=== PATIENT | female | born 1965 | race Caucasian/White ===

== ENCOUNTER 2022-06-21 11:30 | Emergency (ER) | payer MEDICARE, OTHER, SELFPAY ==
[2022-06-21 12:37] VITALS: BP 148/72; PULSE 88; RESP 18; TEMP 37.2; O2SAT 98; BMI 27.4
[2022-06-21 13:21] LABS: Basophils # 0.1 K/mm3 (0-0.2); Basophils % 0.7 % (0.1-2.0); Eosinophils # 0.1 K/mm3 (0.0-0.4); Eosinophils % 1.3 % (0.1-12.0); Hematocrit 38.3 % (37.0-47.0); Hemoglobin 12.3 g/dL (12.2-16.2); Lymphocytes % 25.5 % (10-50); Mean Corpuscular HGB Conc 32.1 g/dL (31.8-35.4); Mean Corpuscular Hemoglobin 31.7 pg (27.0-31.2); Mean Corpuscular Volume 98.7 fl (81-99); Monocytes # 0.4 K/mm3 (0.1-1.0); Monocytes % 5.3 % (1.7-9.3); Neutrophils # 5.3 K/mm3 (1.8-7.8); Neutrophils % 67.2 % (37.0-80.0); Platelet Count 406 K/mm3 (142-424); Red Blood Count 3.88 M/mm3 (4.20-5.40); Red Cell Distribution Width 15.2 % (11.5-17.5); White Blood Count 7.9 K/mm3 (4.8-10.8)
[2022-06-21 13:26] LABS: Alanine Aminotransferase 47 U/L (12-78); Albumin Level 3.2 g/dl (3.5-5.0); Albumin/Globulin Ratio 1.1 (1.1-1.8); Alkaline Phosphatase 288 U/L (38-126); Aspartate Amino Transferase 62 U/L (14-36); Calcium 8.7 mg/dl (8.4-10.2); Carbon Dioxide 34 mmol/L (22.0-30.0); Chloride 92 mmol/L (98-107); Creatinine Clearance Estimated 89 mL/min (50-200); Estimated Glomerular Filt Rate 73 ml/min (>60); GFR (African American) 89 ML/MIN (>60); Glucose 86 mg/dl (74-100); Sodium 136 mmol/L (136-145); Total Protein,Serum 6.2 g/dl (6.3-8.2)
[2022-06-21 13:28] LABS: Bilirubin,Total 0.1 mg/dl (0.2-1.3); Blood Urea Nitrogen < 2 mg/dl (7-17)
--- NOTE | 2022-06-21 13:29 | PC.NURSE ---
8624 CRITICAL LAB RECEIVED FROM [facility] IN LAB. K+ 3.0, PT NAME AND R/V. DR. ASHBY NOTIFIED
--- NOTE | 2022-06-21 13:37 | PC.NURSE ---
ED MD AT BEDSIDE FOR EVALUATION
--- NOTE | 2022-06-21 13:45 | XR_ITS ---
FINAL REPORT TECHNIQUE: Chest PA & Lateral CLINICAL HISTORY: edema FINDINGS: 2 views of the chest were performed. The heart size is normal. The mediastinum is within normal limits. There is scarring in the lung bases. There are no pleural effusions. There is no pneumothorax. There is kyphoplasty and and upper thoracic vertebrae. IMPRESSION: No acute cardiopulmonary process. Reviewed, Interpreted and Dictated by Codey Rodrigez MD Transcribed by Gilbert Almaraz Authenticated and [facility]
--- NOTE | 2022-06-21 13:56 | HMH.EDGENADL ---
Discharge Plan Disposition Patient Disposition: Home, Self-Care Condition: Good Prescriptions Prescriptions: New amoxicillin-pot clavulanate [Augmentin] 500-125 mg tablet 1 tab PO Q8H Qty: 30 0RF hydrochlorothiazide 25 mg tablet 25 mg PO DAILY Qty: 30 0RF potassium chloride 20 mEq tablet extended release 20 meq PO DAILY Qty: 7 0RF No Action celecoxib 200 mg Capsule 200 mg PO DAILY atorvastatin 40 mg Tablet 40 mg PO HS quetiapine 300 mg Tablet 300 mg PO HS amlodipine 5 mg Tablet 5 mg PO DAILY levothyroxine 75 mcg Tablet 75 mcg PO DAILY mirtazapine 15 mg Tablet,Disintegrating 15 mg PO HS metoprolol tartrate 25 mg Tablet 25 mg PO BID temazepam 22.5 mg Capsule 22.5 mg PO HS PRN (Reason: Anxiety) Brilinta 90 mg Tablet 90 mg PO BID Viberzi 100 mg Tablet 100 mg PO BID Rx Instructions: must administer with a meal/food Centrum Adult 50 Fresh-Fruity 120 mcg Tablet,Chewable 1 tab PO DAILY hydralazine 25 mg Tablet 25 mg PO BID divalproex 500 mg Tablet Extended Release 24 Hr 500 mg PO HS Referrals Follow up/Referrals: Mando Olmstead MD [Staff Physician] - See instructions Provider,MD Kip [Primary Care Provider] - See instructions Activity Restrictions/Add. Instructions Additional Instructions/Restrictions: Stop taking amlodipine. Hydrochlorothiazide and potassium as prescribed. Antibiotic, Augmentin, as prescribed. Follow-up with cardiology in the office next week 06/28/2022 at 10:30 AM. You are being provided with a list of physicians available for follow-up of your condition. Please call a physician on this list to arrange a follow-up appointment as soon as possible. Return emergency department if worsening swelling, redness, or if fever develops. Clinical Impressions Clinical Impression: Edema, peripheral, Cellulitis, Acute hypokalemia Instructions Patient Instructions: DI for Cellulitis -- Adult, DI for Hypokalemia, DI for Peripheral Edema -- Bilateral Discharge ED Provider: Aneesh Paulino Adult [facility] General Chief complaint: Wound/Laceration Stated complaint: both ankles, feet, and legs are red, swollen Time Seen by Provider: 06/21/22 13:35 Mode of Arrival: Ambulatory Limitations: No Limitations Description of Symptoms (Recalled from ER Triage Doc. by RN): PT REPORTS SWELLING AND REDNESS TO BILATERAL LOWER LEGS, LEFT MORE THAN RIGHT History of Present Illness HPI narrative: 1 week history of bilateral leg swelling. States that also legs began to turn red today. No fever. No pain. She just recently moved here from [place] on Sunday. The swelling started before she made the trip. She says she has had swelling like this in the past, she does not know what the cause was. However, she does not have swelling on a daily basis. She is not on any diuretics and says she does not have a history of congestive heart failure. She was recently started on amlodipine, the end of May, when she was hospitalized for influenza and pneumonia. Related Data Home Medications Medication Instructions Recorded Confirmed amlodipine 5 mg tablet 5 mg PO DAILY Hypertension 06/21/22 06/21/22 atorvastatin 40 mg tablet 40 mg PO HS Cholesterol 06/21/22 06/21/22 celecoxib 200 mg capsule 200 mg PO DAILY mood 06/21/22 06/21/22 divalproex 500 mg tablet,extended 500 mg PO HS seizures 06/21/22 06/21/22 release 24 hr eluxadoline 100 mg tablet (Viberzi) 100 mg PO BID IBS 06/21/22 06/21/22 hydralazine 25 mg tablet 25 mg PO BID Anxiety 06/21/22 06/21/22 levothyroxine 75 mcg tablet 75 mcg PO DAILY thyroid 06/21/22 06/21/22 metoprolol tartrate 25 mg tablet 25 mg PO BID blood pressure 06/21/22 06/21/22 mirtazapine 15 mg disintegrating 15 mg PO HS antidepressant 06/21/22 06/21/22 tablet multivitamin with minerals-folic 1 tab PO DAILY Supplement 06/21/22 06/21/22 acid 120 mcg chewa
--- NOTE | 2022-06-21 14:02 | PC.NURSE ---
PT TO XR AT THIS TIME
[2022-06-21 14:09] LABS: NT Pro Brain Natriuretic Pep. 554 pg/mL (0-125)
--- NOTE | 2022-06-21 14:13 | PC.NURSE ---
PT RETURNED FROM XR
--- NOTE | 2022-06-21 14:18 | ECG_ITS ---
APPROVED REPORT Exam: Resting ECG HR:76 bpm ECG Measurements Heart Rate 76 AXES OH 125 P 62 QRSd 81 QRS 20 QT 387 T 77 QTc 418 Conclusion SINUS RHYTHM NONSPECIFIC ST & T-WAVE ABNORMALITY BORDERLINE ECG UNCONFIRMED REPORT Electronically signed by : Enoch Alonzo MD 06/22/2022 21:17:22
--- NOTE | 2022-06-21 15:01 | PC.NURSE ---
PT MEDICATED PER EMAR, GIVEN PB AND CRACKERS WITH ABX
[2022-06-21 15:18] VITALS: BP 135/91; PULSE 80; RESP 18; TEMP 36.7; O2SAT 97
== END 2022-06-21 15:22 | disposition home or self-care (01) ==
PROVIDERS: Emergency Provider Emergency Medicine
DX: L03.115 Cellulitis of right lower limb (principal); L03.116 Cellulitis of left lower limb; E87.6 Hypokalemia; I10 Essential (primary) hypertension; I25.10 Atherosclerotic heart disease of native coronary artery without angina pectoris; E78.5 Hyperlipidemia, unspecified; E11.9 Type 2 diabetes mellitus without complications; E07.9 Disorder of thyroid, unspecified; F41.9 Anxiety disorder, unspecified; F17.200 Nicotine dependence, unspecified, uncomplicated; Z79.899 Other long term (current) drug therapy; Z85.828 Personal history of other malignant neoplasm of skin; Z96.41 Presence of insulin pump (external) (internal)
CPT/HCPCS: 71046; 80053; 83880; 85025; 93005; 99284

== ENCOUNTER 2022-06-22 21:35 | Emergency (ER) | payer MEDICARE, OTHER, SELFPAY ==
[2022-06-22 21:38] VITALS: BP 176/69; PULSE 96; RESP 20; TEMP 37; O2SAT 99; BMI 27.4
[2022-06-22 22:01] VITALS: BP 157/72; PULSE 99; O2SAT 98
--- NOTE | 2022-06-22 22:15 | PC.NURSE ---
Dr. Mendoza at
--- NOTE | 2022-06-22 22:19 | HMH.EDNVD ---
Discharge Plan Disposition Patient Disposition: Home, Self-Care Chief Complaint: Nausea/Vomiting/Diarrhea Prescriptions Prescriptions: No Action celecoxib 200 mg Capsule 200 mg PO DAILY atorvastatin 40 mg Tablet 40 mg PO HS quetiapine 300 mg Tablet 300 mg PO HS levothyroxine 75 mcg Tablet 75 mcg PO DAILY mirtazapine 15 mg Tablet,Disintegrating 15 mg PO HS metoprolol tartrate 25 mg Tablet 25 mg PO BID temazepam 22.5 mg Capsule 22.5 mg PO HS PRN (Reason: Anxiety) Brilinta 90 mg Tablet 90 mg PO BID Viberzi 100 mg Tablet 100 mg PO BID Rx Instructions: must administer with a meal/food Centrum Adult 50 Fresh-Fruity 120 mcg Tablet,Chewable 1 tab PO DAILY hydralazine 25 mg Tablet 25 mg PO BID divalproex 500 mg Tablet Extended Release 24 Hr 500 mg PO HS hydrochlorothiazide 25 mg tablet 25 mg PO DAILY amoxicillin-pot clavulanate [Augmentin] 500-125 mg tablet 1 tab PO Q8H potassium chloride 20 mEq tablet extended release 20 meq PO DAILY Referrals Follow up/Referrals: Provider,Referral, MD [Primary Care Provider] - See instructions Clinical Impressions Clinical Impression: Cellulitis, Drug-induced nausea and vomiting Instructions Patient Instructions: DI for Nausea -- Adult Discharge ED Provider: Abhinav Mendoza Nausea/Vomiting/Diarrhea HPI General Chief complaint: Nausea/Vomiting/Diarrhea Stated complaint: vomiting, redness on both legs, dA Time Seen by Provider: 06/22/22 22:19 Mode of Arrival: Family Vehicle Source of Information: Patient Limitations: No Limitations Description of Symptoms (Recalled from ER Triage Doc. by RN): Pt c/o nausea & vomiting and increased diarrhea since starting her Augmentin. Pt was seen in ER yesterday (06/21) and dx with BLE Cellulitis. Pt's family member states her legs look a lot better than yesterday . Pt reports I don't see a change . 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 She also reports her BP medicine was changed to HCTZ and she has had 1 dose thus far but pt states I don't think it's helped my swelling at all. History of Present Illness HPI Narrative: recent ed visit with cellulitis lower ext and has iddm and leg edema - pending appt with card but unable to mojgan po abx sec to nausea and diarrhea - MD complaint: nausea and vomiting Onset (ago): day(s) Severity: moderate Associated symptoms: denies other symptoms Related Data Home Medications Medication Instructions Recorded Confirmed atorvastatin 40 mg tablet 40 mg PO HS Cholesterol 06/21/22 06/22/22 celecoxib 200 mg capsule 200 mg PO DAILY mood 06/21/22 06/22/22 divalproex 500 mg tablet,extended 500 mg PO HS seizures 06/21/22 06/22/22 release 24 hr eluxadoline 100 mg tablet (Viberzi) 100 mg PO BID IBS 06/21/22 06/22/22 hydralazine 25 mg tablet 25 mg PO BID Anxiety 06/21/22 06/22/22 levothyroxine 75 mcg tablet 75 mcg PO DAILY thyroid 06/21/22 06/22/22 metoprolol tartrate 25 mg tablet 25 mg PO BID blood pressure 06/21/22 06/22/22 mirtazapine 15 mg disintegrating 15 mg PO HS antidepressant 06/21/22 06/22/22 tablet multivitamin with minerals-folic 1 tab PO DAILY Supplement 06/21/22 06/22/22 acid 120 mcg chewable tablet (Centrum Adult 50 Plus Fresh-Fruity) quetiapine 300 mg tablet 300 mg PO HS sleep 06/21/22 06/22/22 temazepam 22.5 mg capsule 22.5 mg PO HS PRN Anxiety 06/21/22 06/22/22 ticagrelor 90 mg tablet (Brilinta) 90 mg PO BID Blood thinner 06/21/22 06/22/22 amoxicillin 500 mg-potassium 1 tab PO Q8H cellulitis 06/22/22 06/22/22 clavulanate 125 mg tablet (Augmentin) hydrochlorothiazide 25 mg tablet 25 mg PO DAILY high blood 06/22/22 06/22/22 pressure, fluid potassium chloride 20 mEq 20 meq PO DAILY Supplement 06/22/22 06/22/22 tablet,extended release Allergies Allergy/AdvReac Type Severity Reaction Status Date / Time clindamycin Allergy Verified 06/21
[2022-06-22 22:43] VITALS: BP 152/82; PULSE 85; RESP 20; TEMP 36.8; O2SAT 98
--- NOTE | 2022-06-23 11:17 | PC.NURSE ---
prescription called into [facility] pharmacy per verbal order from dr. davis keflex 500 mg PO TID x7 days no refills. called pt to notify her of prescriptions sent to [facility] pharmacy and dr. davis stated to have pt make sure follow up with new primary doctor (dr. bar).
== END 2022-06-22 22:45 | disposition home or self-care (01) ==
PROVIDERS: Emergency Provider Emergency Medicine
DX: R11.2 Nausea with vomiting, unspecified (principal); R19.7 Diarrhea, unspecified; T36.1X5A Adverse effect of cephalosporins and other beta-lactam antibiotics, initial encounter; L03.116 Cellulitis of left lower limb; L03.115 Cellulitis of right lower limb; E11.69 Type 2 diabetes mellitus with other specified complication; Z79.899 Other long term (current) drug therapy; I10 Essential (primary) hypertension; E78.5 Hyperlipidemia, unspecified; Z72.0 Tobacco use
CPT/HCPCS: 99283

== ENCOUNTER → 2022-07-05 13:28 | Outpatient (CLI) | payer MEDICARE, OTHER, SELFPAY ==
--- NOTE | 2022-07-05 13:32 | CA_ITS ---
APPROVED REPORT EXAM: Comprehensive 2D, Doppler, and color-flow Echocardiogram Wall Washer: ROLY Millard, RVS Ht: 5 ft 5 in Wt: 162lbs BSA: 1.81 BP: 128/54 mmHg Indications: CAD(3 CORONARY STENTS) TYPE I DM, SMOKER, SOA, HTN, EDEMA 2D Dimensions IVSd 0.78 cm F: 0.6-1.0 LVEF (Visual) 67.50 % PWd 0.80 cm F: 0.6 - 1.0 LVDd 3.73 cm F: 3.9 - 5.3 LVDs 2.36 cm F: 2.2 - 3.5 Aortic Root 2.58 cm F: 2.7 - 3.3 Left Atrium 2.37 cm F: 2.7 - 3.8 LVOT 1.74 cm (M/F) 1.5-2.5 M-Mode Dimensions RVDd 2.25 cm (0.9-2.6) LA Diam 2.87 cm (1.9-4.0) LVDd 3.44 cm (3.5-5.7) Ao Diam 2.76 cm (2.0-3.7) LVDs 2.19 cm (3.5-5.7) IVSd 0.81 cm (0.6-1.1) PWd 0.72 cm (0.6-1.1) EF (Teich) 67.20% EPSs 0.57 cm FS 36.30% EDV (Teich) 48.80 mL TAPSE 2.66 (<1.7) ESV (Teich) 16.00 mL LV Diastology E Decel Time 147.00 (160-240 msec) E/A Ratio 0.91 MED E' 5.80 (< 7 cm/sec) MED A' 8.40 cm/s E'/MED E' Ratio 17.71 (>14) LAT E' 10.90 (<10 cm/sec) LAT A' 12.80 cm/s E/LAT E' Ratio 9.42 (>14) Aortic Valve LVOT Max 111.00 (70-110 cm/s) LVOT VTI 25.68 cm AoV Peak Quan. 185.00 (50-130 cm/s) AO Peak GR. 13.70 mmHg AO Mean GR. 7.10 (<5 mmHg) AO VTI 36.65 (18-25 cm) LETA (VTI) 1.67 (2.5-4.5 cm2) Mitral Valve MV A Velocity 113.00 (40-130 cm/s) E/A Ratio 0.91 MV Decel. Time 147.00 (160-240 ms) MV PHT 43.00 ms Pulmonary Valve PV Peak Velocity 77.00 (50-150 cm/s) Tricuspid Valve TR P. Velocity 259.00 cm/s RAP Estimate 10.00 mmHg RVSP 36.80 mmHg Left Ventricle Left atrium is mildly enlarged, left ventricle is normal size, mild concentric left ventricular hypertrophy, estimated ejection fraction 55% with no regional wall motion abnormality, grade 1 diastolic dysfunction seen without tissue Doppler evidence of raise left atrial pressure. Right Ventricle Right atrium and right ventricle are normal size and contractility. Aortic Valve Aortic valve is minimally thickened and fibrosed there is no aortic stenosis aortic insufficiency. Mitral Valve Mitral valve is grossly normal, there is trace mitral regurgitation. Tricuspid Valve Tricuspid valve grossly normal, there is trace tricuspid regurgitation, tricuspid regurgitation jet velocity is inadequate for calculation of the right ventricular systolic pressure. Pulmonic Valve Pulmonic valve is poorly visualized. Great Vessels Aortic root is normal size. Inferior vena cava is normal size with normal inspiratory collapse. Pericardium No significant pericardial effusion noted. Conclusion 1. Normal left ventricular size mild concentric left ventricular hypertrophy, estimated ejection fraction 55% with no regional wall motion abnormality, grade 1 diastolic dysfunction seen without tissue Doppler evidence of raise left atrial pressure. 2. Trace mitral and tricuspid regurgitation. 3. No significant pericardial effusion noted. 4. Inferior vena cava is normal size with normal inspiratory collapse. Electronically signed by : Huang Ellis MD 07/07/2022 11:29:22
== END ==
PROVIDERS: PCP Internal Medicine Adolescent Medicine; Visit Provider Nurse Practitioner Family
DX: E13.69 Other specified diabetes mellitus with other specified complication (principal); F17.200 Nicotine dependence, unspecified, uncomplicated; I25.10 Atherosclerotic heart disease of native coronary artery without angina pectoris; R42 Dizziness and giddiness; R60.9 Edema, unspecified
CPT/HCPCS: 93306

== ENCOUNTER → 2022-07-19 14:40 | Outpatient (CLI) | payer MEDICARE, MEDICAID, SELFPAY ==
[2022-07-19 15:55] LABS: Anion Gap 6.2 mEq/L (5-15); Blood Urea Nitrogen 4 mg/dl (7-17); Calcium 8.9 mg/dl (8.4-10.2); Carbon Dioxide 34 mmol/L (22.0-30.0); Chloride 99 mmol/L (98-107); Estimated Glomerular Filt Rate 86 ml/min (>60); GFR (African American) 104 ML/MIN (>60); Glucose 246 mg/dl (74-100); Potassium 4.2 mmoL/L (3.5-5.1); Sodium 135 mmol/L (136-145)
== END ==
PROVIDERS: PCP Internal Medicine Adolescent Medicine; Visit Provider Physician Assistant
DX: E13.69 Other specified diabetes mellitus with other specified complication (principal); E78.2 Mixed hyperlipidemia; F17.200 Nicotine dependence, unspecified, uncomplicated; I10 Essential (primary) hypertension; I25.10 Atherosclerotic heart disease of native coronary artery without angina pectoris
CPT/HCPCS: 36415; 80048

== ENCOUNTER → 2022-08-17 07:56 | Outpatient (CLI) | payer MEDICARE, MEDICAID, SELFPAY ==
--- NOTE | 2022-08-17 08:02 | XR_ITS ---
FINAL REPORT TECHNIQUE: Bone densitometry calculations of the lumbar spine and left hip were obtained. CLINICAL HISTORY: post menopausal FINDINGS: DEXA BONE DENSITY AXIAL SKELETON Using L1-4, the bone mineral density of the spine is 0.882 g/cm2, corresponding to T-score of -1.5. Using the left hip, the bone mineral density of the femoral neck is 0.521 g/cm2, corresponding to a T-score of -3.0. NOTE: T-score: Standard deviation compared with peak bone mass of young adult mean. *Following the recommendations of the International Society of Bone Densitometry, classification of hip BMD is based on the lower of two T-scores; total hip or femoral neck. IMPRESSION: Osteoporosis: Lowest T-score is at or below -2.5. This patient's T-score meets the World Health Organization criteria for osteoporosis. FRAX not reported because: Some T-score for Spine Total or hip Total or femoral neck at or below -2.5 Reviewed, Interpreted and Dictated by Mg Perez III, MD Transcribed by Samanta Zaldivar Authenticated and [facility]
--- NOTE | 2022-08-17 08:02 | MM_ITS ---
PROCEDURE INFORMATION: Exam: MG Bilateral Screening 3D Mammography Exam date and time: 08/17/2022 7:57 AM Age: 57 years old Clinical indication: Screening. No family history of breast cancer. TECHNIQUE: Imaging protocol: Bilateral Screening tomosynthesis and 2D mammography including computer-aided detection (CAD) when performed. COMPARISON: No relevant prior studies available.If prior mammograms are provided, I am happy to add an addendum. FINDINGS: MAMMOGRAPHY: Breast composition: The breasts are heterogeneously dense, which may obscure small masses. Mass: None. Architectural distortion: None. Calcifications: No suspicious calcifications. Asymmetric density: None. Skin thickening: None. Axillary adenopathy: None. IMPRESSION: No mammographic evidence of malignancy. Annual screening is recommended unless otherwise clinically indicated. ASSESSMENT: BI-RADS Category 1: Negative
== END ==
PROVIDERS: PCP Internal Medicine Adolescent Medicine; Visit Provider Internal Medicine Adolescent Medicine
DX: Z12.31 Encounter for screening mammogram for malignant neoplasm of breast (principal); Z78.0 Asymptomatic menopausal state
CPT/HCPCS: 77063; 77067; 77080

== ENCOUNTER → 2022-11-21 14:40 | Outpatient (POV) | payer MEDICARE, MEDICAID, SELFPAY | PROVIDERS: Visit Provider Dermatology | DX: Z00.00 Encounter for general adult medical examination without abnormal findings (principal) ==

== ENCOUNTER → 2022-12-19 13:25 | Outpatient (POV) | payer MEDICARE, MEDICAID, SELFPAY | PROVIDERS: Visit Provider Dermatology | DX: Z00.00 Encounter for general adult medical examination without abnormal findings (principal) ==

== ENCOUNTER 2022-12-26 12:55 | Emergency (ER) | payer MEDICARE, MEDICAID, SELFPAY ==
[2022-12-26] VITALS (11 sets, daily range): BP systolic 95–130; BP diastolic 42–63; PULSE 69–79; RESP 17–19; TEMP 36.6; O2SAT 90–100; BMI 25.6
--- NOTE | 2022-12-26 13:14 | XR_ITS ---
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 Deformity of proximal Lt tib/fib w pain FINDINGS: Two views of the left tibia-fibula were obtained. There are comminuted oblique fractures of the proximal tibial diaphysis and proximal fibula metaphysis with overlying fracture fragments. The joint spaces appear normal. No soft tissue abnormality is seen. IMPRESSION: Comminuted proximal tibia and fibula fractures. Reviewed, Interpreted and Dictated by Mg Perez III, MD Transcribed by Gilbert Almaraz Authenticated and [facility]
--- NOTE | 2022-12-26 13:14 | CT_ITS ---
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 Coronal reformatted images were also obtained.This study was performed with techniques to keep radiation doses as low as reasonably achievable (ALARA). Individualized dose reduction techniques using automated exposure control or adjustment of mA and/or kV according to the patient's size were employed. There is no evidence of intracranial hemorrhage or mass. The ventricular size is within normal limits. There is no evidence of shift of the midline structures. No abnormal extra axial fluid collection is identified. No skull abnormality is seen on the bone window images. IMPRESSION: No acute intracranial abnormality. Reviewed, Interpreted and Dictated by Mg Perez III, MD Transcribed by Gilbert Almaraz Authenticated and [facility]
--- NOTE | 2022-12-26 13:14 | XR_ITS ---
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 Deformity of proximal Lt tib/fib w pain FINDINGS: AP PELVIS: A single view of the pelvis was obtained. There is no acute fracture or dislocation. Visualized joint spaces are normally aligned. Soft tissues are unremarkable. IMPRESSION: No acute process. Reviewed, Interpreted and Dictated by Mg Perez III, MD Transcribed by Gilbert Almaraz Authenticated and [facility]
--- NOTE | 2022-12-26 13:20 | XR_ITS ---
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 Deformity of Lt tib/fib FINDINGS: 2 views of the left ankle were obtained. There is no acute fracture or dislocation. There are mild and moderate degenerative changes. There are small spurs. There is no soft tissue abnormality. IMPRESSION: No acute fracture. Reviewed, Interpreted and Dictated by Mg Perez III, MD Transcribed by Gilbert Almaraz Authenticated and [facility]
--- NOTE | 2022-12-26 13:20 | XR_ITS ---
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 Deformity of proximal Lt tib/fib w pain FINDINGS: Left knee Two views were obtained. There is a comminuted fracture of the proximal tibial diaphysis. There is overlapping of the fracture fragments. There is also a fracture of the proximal fibular metaphysis with overlapping of the fracture fragments. IMPRESSION: Fractures as above. Reviewed, Interpreted and Dictated by Mg Perez III, MD Transcribed by Cheryl Salcido Authenticated and [facility]
[2022-12-26 13:23] LABS: Basophils % 0.6 % (0.1-2.0); Eosinophils # 0.1 K/mm3 (0.0-0.4); Hematocrit 36.1 % (37.0-47.0); Lymphocytes % 31.3 % (10-50); Mean Corpuscular HGB Conc 33.2 g/dL (31.8-35.4); Mean Corpuscular Hemoglobin 32.5 pg (27.0-31.2); Mean Corpuscular Volume 97.8 fl (81-99); Mean Platelet Volume 9.4 fl (7.4-10.4); Monocytes # 0.4 K/mm3 (0.1-1.0); Monocytes % 5.8 % (1.7-9.3); Neutrophils % 61.3 % (37.0-80.0); Platelet Count 202 K/mm3 (142-424); Red Blood Count 3.69 M/mm3 (4.20-5.40); Red Cell Distribution Width 13.9 % (11.5-17.5); White Blood Count 6.5 K/mm3 (4.8-10.8)
--- NOTE | 2022-12-26 13:23 | HMH.EDGENADL ---
Discharge Plan Disposition Patient Disposition: Xfer Other Chief Complaint: Extremity Injury, Lower Prescriptions Prescriptions: No Action atorvastatin 40 mg tablet 40 mg PO HS Label Comments: TAKE 1 TABLET BY MOUTH AT BEDTIME quetiapine 300 mg tablet 300 mg PO HS Label Comments: TAKE 1 TABLET BY MOUTH ONCE DAILY AT NIGHT tizanidine 4 mg tablet 4 mg PO Q6HP PRN (Reason: Pain) Label Comments: TAKE 1 TABLET BY MOUTH EVERY 6 HOURS DIRECTED FOR 30 DAYS diphenoxylate-atropine 2.5-0.025 mg tablet 2 tab PO QIDP PRN (Reason: IBS) Label Comments: TAKE 2 TABLETS BY MOUTH 4 TIMES DAILY NEEDED levothyroxine 75 mcg tablet 75 mcg PO AM Label Comments: TAKE 1 TABLET BY MOUTH ONCE DAILY 1 HOUR BEFORE BREAKFAST primidone 250 mg tablet 250 mg PO HS Label Comments: USE DIRECTED AT BEDTIME insulin aspart U-100 [Novolog U-100 Insulin aspart] 100 unit/mL solution See Rx Instructions .ROUTE .COMPLEX Label Comments: USE DIRECTED VIA INSULIN PUMP MAXIMUM OF 100 UNITS PER DAY Rx Instructions: Doctor's Order divalproex 500 mg tablet extended release 24 hr 500 mg PO DAILY Label Comments: TAKE 1 TABLET BY MOUTH ONCE DAILY lidocaine 5 % adhesive patch,medicated 1 patch transdermal BIDP PRN (Reason: Pain) Label Comments: APPLY 1 PATCH TOPICALLY TWICE DAILY DIRECTED furosemide 20 mg tablet 20 mg PO DAILY mirtazapine 15 mg tablet 15 mg PO HS Label Comments: TAKE 1 TABLET BY MOUTH ONCE DAILY AT NIGHT metoprolol succinate 25 mg tablet extended release 24 hr 25 mg PO DAILY albuterol sulfate 90 mcg/actuation HFA aerosol inhaler 2 inh INHALATION Q6HP PRN (Reason: Breathing Problems) Label Comments: INHALE 2 PUFFS BY MOUTH EVERY 6 HOURS hydroxyzine pamoate 25 mg capsule 25 mg PO DIRECTED Label Comments: TAKE 1 CAPSULE BY MOUTH IN THE MORNING AND 2 AT BEDTIME FOR ANXIETY temazepam 22.5 mg capsule 22.5 mg PO HSP PRN (Reason: Insomnia) Label Comments: TAKE 1 CAPSULE BY MOUTH AT NIGHT NEEDED FOR SLEEP Brilinta 90 mg tablet 90 mg PO BID Label Comments: TAKE 1 TABLET BY MOUTH TWICE DAILY Viberzi 100 mg tablet 100 mg PO BID Label Comments: TAKE 1 TABLET BY MOUTH TWICE DAILY WITH FOOD Referrals Follow up/Referrals: Enoch Alonzo MD [Primary Care Provider] - See instructions Clinical Impressions Clinical Impression: Fracture of proximal end of left tibia Stand Alone Forms Stand Alone Forms: Transfer Record - ED Discharge ED Provider: Deshawn Lo General Adult HPI General Chief complaint: Extremity Injury, Lower Stated complaint: Fall Time Seen by Provider: 12/26/22 13:00 Mode of Arrival: EMS Source of Information: Patient Limitations: Physical Limitations Description of Symptoms (Recalled from ER Triage Doc. by RN): 57 F presents from home via EMS after a fall from passing out. EMS reports her significant other called out after she got out of bed, walked around to the doorway and fell. Patient has obvious left tib/fib deformity to her left lower extremity. Pulses are presents bilaterally. 50mcg IVP given through 20g RAc per EMS. FSBS 293. Patient is a/o x3, GCS 15. She is foggy to what exactly happened. History of Present Illness HPI narrative: 57-year-old female presents after passing out. She says she was getting out of bed felt lightheaded and then hit her leg on the bed and she fell her boyfriend gave her glucagon because he was worried about hypoglycemia. Blood sugar was 293 in route by EMS she has pain to her left lower extremity. No headache or head injury no neck pain chest pain abdominal pain back pain dysuria hematuria nausea vomiting diarrhea. Related Data Home Medications Medication Instructions Recorded Confirmed albuterol sulfate 90 mcg/actuation 2 inh inhalation Q6HP PRN 12/26/22 12/26/22 dorcas
[2022-12-26 13:27] LABS: Anion Gap 7.4 mEq/L (5-15); Blood Urea Nitrogen 11 mg/dl (7-17); Calcium 8.1 mg/dl (8.4-10.2); Carbon Dioxide 34 mmol/L (22.0-30.0); Chloride 96 mmol/L (98-107); Creatinine Clearance Estimated 83 mL/min (50-200); Estimated Glomerular Filt Rate 73 ml/min (>60); GFR (African American) 89 ML/MIN (>60); Glucose 222 mg/dl (74-100); Sodium 135 mmol/L (136-145)
[2022-12-26 13:29] LABS: Potassium 2.4 mmoL/L (3.5-5.1)
--- NOTE | 2022-12-26 13:29 | PC.NURSE ---
held rad girls move pt from stretcher to ct bed
--- NOTE | 2022-12-26 13:37 | XR_ITS ---
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 Pain in Lt tib/fib w major deformity. COMPARISON: 06/2022 FINDINGS: The heart size is normal. The mediastinum is within normal limits. There is no acute cardiopulmonary process. There is no pleural effusion. There is no pneumothorax. The bony thorax is intact. IMPRESSION: No acute cardiopulmonary process. Reviewed, Interpreted and Dictated by Mg Perez III, MD Transcribed by Gilbert Almaraz Authenticated and [facility]
--- NOTE | 2022-12-26 13:46 | ECG_ITS ---
APPROVED REPORT Exam: Resting ECG HR:82 bpm ECG Measurements Heart Rate 82 AXES IN 151 P 81 QRSd 82 QRS 64 QT 395 T 84 QTc 433 Conclusion SINUS RHYTHM NORMAL ECG UNCONFIRMED REPORT Electronically signed by : Enoch Alonzo MD 12/26/2022 21:19:09
[2022-12-26 13:48] LABS: Troponin I < 0.01 ng/ml (0.00-0.034)
--- NOTE | 2022-12-26 13:49 | PC.NURSE ---
HELPED RAD GIRLS MOVE PT FROM CT BED TO STRETCHER
--- NOTE | 2022-12-26 13:52 | PC.NURSE ---
CALLING SURGERY/ ORTHO TO SEE WHO'S TREE KILLER FOR SURGERY TODAY IT IS DR DELACRUZ AND HE IS NOT IN THE BUILDING TODAY SO HAVING PUBLICATIONS MANAGER PG DR DELACRUZ
--- NOTE | 2022-12-26 13:56 | PC.NURSE ---
GOLF COURSE LABORER CALLED SAID SHE CALLED DR CARRENO CELLPHONE HIS VOICEMAIL BOX WAS FULL AN UNABLE TO LEAVE A MESSAGE BUT SHE DID MAKE THE CALL
--- NOTE | 2022-12-26 14:18 | PC.NURSE ---
PT RESTING IN BED TAP ORTIZ AT BEDSIDE
[2022-12-26 14:20] LABS: Coronavirus 19, PCR Not Detected (NotDetected); Influenza A, PCR Not Detected (NotDetected); Influenza B, PCR Not Detected (NotDetected)
--- NOTE | 2022-12-26 14:24 | PC.NURSE ---
HAVING SERVICE DESK TEAM LEAD PAGE DR CARRENO AGAIN
--- NOTE | 2022-12-26 14:39 | PC.NURSE ---
CALLING [facility] MD TO SPEAK WITH A MD WITH [facility]THO SURGEON FOR PT TO BE TRANSFERED
--- NOTE | 2022-12-26 15:00 | PC.NURSE ---
DUSTIN BOOTHE SPEAKING WITH DR ESPINOZA FROM [facility]
--- NOTE | 2022-12-26 15:10 | PC.NURSE ---
Report called to HERBIE Soria at [facility] Charge desk. EMS contacted for transport to [facility]
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
--- NOTE | 2022-12-26 16:32 | PC.NURSE ---
PT VISITOR STATES PAIN MED IS NOT TOUCHING THE PAIN, TOLD ER MD AND NURSE
--- NOTE | 2022-12-26 17:07 | PC.NURSE ---
EMS IS HERE TO TRANSFER PT TO [facility] AT
== END 2022-12-26 17:27 | disposition other institution (70) ==
PROVIDERS: Emergency Provider Emergency Medicine; PCP Internal Medicine Adolescent Medicine
DX: S82.402A Unspecified fracture of shaft of left fibula, initial encounter for closed fracture (principal); S82.102A Unspecified fracture of upper end of left tibia, initial encounter for closed fracture; R55 Syncope and collapse; E11.9 Type 2 diabetes mellitus without complications; F17.200 Nicotine dependence, unspecified, uncomplicated; W19.XXXA Unspecified fall, initial encounter
CPT/HCPCS: 70450; 71045; 72170; 73560; 73590; 73600; 80048; 84484; 85025; 87635; 87636; 93005; 96361; 96374; 96375; 99285; C9803; J2405; U0003; U0005

== ENCOUNTER → 2023-03-09 12:41 | Outpatient (CLI) | payer MEDICARE, MEDICAID, SELFPAY ==
[2023-03-09 14:34] LABS: Chloride 102 mmol/L (98-107); Sodium 138 mmol/L (136-145)
[2023-03-09 14:35] LABS: Albumin Level 3.3 g/dl (3.5-5.0)
[2023-03-09 14:37] LABS: Blood Urea Nitrogen 13 mg/dl (7-17); Carbon Dioxide 33 mmol/L (22.0-30.0); Estimated Glomerular Filt Rate 73 ml/min (>60); GFR (African American) 89 ML/MIN (>60); Phosphorous 4.3 mg/dl (2.5-4.5)
[2023-03-09 14:38] LABS: Glucose 112 mg/dl (74-100)
[2023-03-09 15:02] LABS: 25-OH Vitamin D, Total 34.1 ng/mL (30-100)
[2023-03-13 22:30] LABS: Osteocalcin 18.9 ng/mL (.)
[2023-03-14 01:08] LABS: Tandem-R Ostase 46.8 ug/L (.)
[2023-03-14 22:18] LABS: C-Telopeptide Serum 492 pg/mL (.)
== END ==
PROVIDERS: PCP Internal Medicine Adolescent Medicine; Visit Provider Physician Assistant
DX: M80.00XA Age-related osteoporosis with current pathological fracture, unspecified site, initial encounter for fracture (principal)
CPT/HCPCS: 36415; 80069; 82306; 82523; 83937; 84080

== ENCOUNTER 2023-03-17 19:18 | Emergency (ER) | payer MEDICARE, MEDICAID, SELFPAY ==
[2023-03-17 19:18] VITALS: BP 128/41; PULSE 94; RESP 16; TEMP 36.7; O2SAT 93; BMI 25.7
--- NOTE | 2023-03-17 19:23 | XR_ITS ---
PROCEDURE INFORMATION: Exam: XR Left Knee Exam date and time: 03/17/2023 7:27 PM Age: 57 years old Clinical indication: Injury or trauma; Fall; Injury details: S/P surgery December 2022 TECHNIQUE: Imaging protocol: Radiologic exam of the left knee. Views: 3 views. COMPARISON: CR XR KNEE LT 2V 12/26/2022 1:29 PM FINDINGS: Tubes, catheters and devices: The distal component of the fixation jeff was not imaged. Periosteal reaction is demonstrated at the site of previously demonstrated proximal fibular fracture as well as proximal diaphyseal fracture. Bones/joints: Status post ORIF left proximal tibia. Hardware appears intact. Soft tissues: Normal. IMPRESSION: 1. Intact ORIF. 2. Healing proximal tibial and fibular fractures. 3. Incomplete visualization of internal fixation jeff. Consider follow-up radiographs for complete assessment, if appropriate.
--- NOTE | 2023-03-17 19:23 | XR_ITS ---
PROCEDURE INFORMATION: Exam: XR Left Tibia and Fibula Exam date and time: 03/17/2023 7:27 PM Age: 57 years old Clinical indication: Injury or trauma; Fall; Injury details: S/P surgery in December 2022 TECHNIQUE: Imaging protocol: Radiologic exam of the left tibia and fibula. Views: 2 views. COMPARISON: CR XR TIBIA FIBULA LT 2V 12/26/2022 1:29 PM FINDINGS: Bones/joints: Status post ORIF left tibia. Hardware appears intact. The entire intramedullary jeff is demonstrated on the current study. Satisfactory alignment of the previously demonstrated proximal tibial diaphyseal fracture. Fracture plane still visible. Periosteal reaction demonstrated. Periosteal reaction involving the proximal fibular fracture also demonstrated. Fracture plane still visible. Soft tissues: Normal. IMPRESSION: 1. Healing proximal tibial and fibular fractures. 2. Intact ORIF. No evidence of acute injury or hardware failure.
--- NOTE | 2023-03-17 19:35 | HMH.EDGENADL ---
Discharge Plan Disposition Patient Disposition: Home, Self-Care Condition: Good Prescriptions Prescriptions: New oxycodone 5 mg tablet 5 mg PO Q8H PRN (Reason: pain) Qty: 10 0RF No Action Brilinta 90 mg tablet 90 mg PO BID Qty: 60 7RF atorvastatin 40 mg tablet 40 mg PO HS Patient Comments: TAKE 1 TABLET BY MOUTH AT BEDTIME quetiapine 300 mg tablet 300 mg PO HS Patient Comments: TAKE 1 TABLET BY MOUTH ONCE DAILY AT NIGHT tizanidine 4 mg tablet 4 mg PO Q6HP PRN (Reason: Pain) Patient Comments: TAKE 1 TABLET BY MOUTH EVERY 6 HOURS DIRECTED FOR 30 DAYS diphenoxylate-atropine 2.5-0.025 mg tablet 2 tab PO QIDP PRN (Reason: IBS) Patient Comments: TAKE 2 TABLETS BY MOUTH 4 TIMES DAILY NEEDED levothyroxine 75 mcg tablet 75 mcg PO AM Patient Comments: TAKE 1 TABLET BY MOUTH ONCE DAILY 1 HOUR BEFORE BREAKFAST primidone 250 mg tablet 250 mg PO HS Patient Comments: USE DIRECTED AT BEDTIME insulin aspart U-100 [Novolog U-100 Insulin aspart] 100 unit/mL solution See Rx Instructions .ROUTE .COMPLEX Patient Comments: USE DIRECTED VIA INSULIN PUMP MAXIMUM OF 100 UNITS PER DAY Rx Instructions: Doctor's Order divalproex 500 mg tablet extended release 24 hr 500 mg PO DAILY Patient Comments: TAKE 1 TABLET BY MOUTH ONCE DAILY mirtazapine 15 mg tablet 15 mg PO HS Patient Comments: TAKE 1 TABLET BY MOUTH ONCE DAILY AT NIGHT albuterol sulfate 90 mcg/actuation HFA aerosol inhaler 2 inh INHALATION Q6HP PRN (Reason: Breathing Problems) Patient Comments: INHALE 2 PUFFS BY MOUTH EVERY 6 HOURS hydroxyzine pamoate 25 mg capsule 25 mg PO DIRECTED Patient Comments: TAKE 1 CAPSULE BY MOUTH IN THE MORNING AND 2 AT BEDTIME FOR ANXIETY temazepam 22.5 mg capsule 22.5 mg PO HSP PRN (Reason: Insomnia) Patient Comments: TAKE 1 CAPSULE BY MOUTH AT NIGHT NEEDED FOR SLEEP Viberzi 100 mg tablet 100 mg PO BID Patient Comments: TAKE 1 TABLET BY MOUTH TWICE DAILY WITH FOOD Referrals Follow up/Referrals: Provider,Referral, MD [Primary Care Provider] - See instructions Clinical Impressions Clinical Impression: Acute knee pain Qualifiers: Laterality: left Qualified Code(s): M25.562 - Pain in left knee Discharge ED Provider: Jad Allison General Adult HPI General Chief complaint: Extremity Injury, Lower Stated complaint: Knee pain from fall Time Seen by Provider: 03/17/23 19:25 Mode of Arrival: EMS Source of Information: Patient Limitations: No Limitations Description of Symptoms (Recalled from ER Triage Doc. by RN): 57 yo female describes fall earlier this date (2-3 am) that caused an injury to her LLE. According to patient she has a PMH of tib/fib fracture on same side in December of this year, has had therapy through [facility] and one month of PT left outpatient. Thinks that she just lost control of her feet , began to fall, landed on both knees on the floor against the coffee table. Pain is located lateral to patella and rates 10/10 without radiation. No obvious abrasion/edema/bruising present. Hasn't been able to weight bear since event. Utilizing cane at home. Took ibu/tylenol/zanaflex >6 hours prior to presentation. History of Present Illness HPI narrative: Patient presents for evaluation of left lower extremity injury, reports recent history of left tibia and fibula fracture status post repair, recently discharged from rehabilitation facility, injured leg while ambulating around home earlier today, nonsyncopal fall from standing, describes severe nonradiating pain localized to left knee, unable to bear weight, previous therapies include Tylenol and ibuprofen. No distal numbness or tingling, no injury elsewhere, patient was in her normal state of health prior to onset of symptoms. Related Data Home Medications Medication Instructions Recorded C
[2023-03-17 20:00] VITALS: BP 131/63; PULSE 95; O2SAT 100
--- NOTE | 2023-03-17 20:20 | CT_ITS ---
PROCEDURE INFORMATION: Exam: CT Left Lower Extremity Without Contrast; Lower Leg Exam date and time: 03/17/2023 8:32 PM Age: 57 years old Clinical indication: Injury or trauma; Fall; Other: Pain; Injury details: S/P surgery in December 2022; Additional info: Inability to bear wt, eval for occult FX TECHNIQUE: Imaging protocol: CT of the left lower extremity without contrast was performed. Exam focused on the lower leg. Radiation optimization: All CT scans at this facility use at least one of these dose optimization techniques: automated exposure control; mA and/or kV adjustment per patient size (includes targeted exams where dose is matched to clinical indication); or iterative reconstruction. REPORTING DATA: Count of CT and Cardiac NM exams in prior 12 months: This patient has received [address] and 0 known cardiac nuclear medicine studies in the 12 months prior to the current study. COMPARISON: CR XR TIBIA FIBULA LT 2V 03/17/2023 7:27 PM FINDINGS: Bones/joints: Small suprapatellar effusion. Status post ORIF fracture plane still visible in the tibia as well as the proximal fibula. Cortical remodeling distal fibula consistent with healing fracture. Regions of subcortical lucent change with surrounding sclerosis involving the lateral tibial plateau. Findings suspicious for focal osteochondral lesion. Increased regions of sclerosis demonstrated in the corresponding region of the lateral femoral condyle. This may correspond to bone marrow edema. Follow-up with magnetic resonance imaging would be helpful. Soft tissues: Mild regions of subcutaneous edema. IMPRESSION: 1. Findings compatible with healing fracture lateral malleolus. 2. Regions of subcortical lucent change with surrounding sclerosis involving the lateral tibial plateau. Findings suspicious for focal osteochondral lesion. 3. Increased regions of sclerosis demonstrated in the corresponding region of the lateral femoral condyle. This may correspond to bone marrow edema. Follow-up with magnetic resonance imaging would be helpful.
--- NOTE | 2023-03-17 20:58 | PC.NURSE ---
patient given pepsi, requesting something for pain and nausea, informed
[2023-03-17 21:00] VITALS: BP 162/78; PULSE 102; O2SAT 98
[2023-03-17 21:28] VITALS: BP 165/70; PULSE 105; RESP 18; TEMP 36.6
[2023-03-17 21:30] VITALS: BP 165/70; PULSE 105; O2SAT 98
== END 2023-03-17 21:36 | disposition home or self-care (01) ==
PROVIDERS: Emergency Provider Emergency Medicine
DX: M25.562 Pain in left knee (principal); I25.10 Atherosclerotic heart disease of native coronary artery without angina pectoris; E11.9 Type 2 diabetes mellitus without complications; I10 Essential (primary) hypertension; E78.5 Hyperlipidemia, unspecified; E07.9 Disorder of thyroid, unspecified; Z87.891 Personal history of nicotine dependence; W18.30XA Fall on same level, unspecified, initial encounter
CPT/HCPCS: 73562; 73590; 73700; 99284

== ENCOUNTER 2023-03-26 16:22 | Emergency (ER) | payer MEDICARE, MEDICAID, SELFPAY ==
[2023-03-26 16:23] VITALS: BP 134/74; PULSE 98; RESP 18; TEMP 37.3; O2SAT 100; BMI 25.4
[2023-03-26 16:30] VITALS: BP 158/71; PULSE 98; RESP 18; O2SAT 96
[2023-03-26 16:31] VITALS: BMI 25.4
[2023-03-26 17:00] VITALS: BP 147/79; PULSE 96; RESP 20; O2SAT 94
[2023-03-26 17:30] VITALS: BP 155/74; PULSE 96; RESP 20; O2SAT 95
--- NOTE | 2023-03-26 17:50 | PC.NURSE ---
call button in reach , pt given warm blanket
--- NOTE | 2023-03-26 18:29 | HMH.EDGENADL ---
Discharge Plan Disposition Patient Disposition: Home, Self-Care Condition: Fair Prescriptions Prescriptions: No Action Brilinta 90 mg tablet 90 mg PO BID Qty: 60 7RF atorvastatin 40 mg tablet 40 mg PO HS Patient Comments: TAKE 1 TABLET BY MOUTH AT BEDTIME quetiapine 300 mg tablet 300 mg PO HS Patient Comments: TAKE 1 TABLET BY MOUTH ONCE DAILY AT NIGHT tizanidine 4 mg tablet 4 mg PO Q6HP PRN (Reason: Pain) Patient Comments: TAKE 1 TABLET BY MOUTH EVERY 6 HOURS DIRECTED FOR 30 DAYS diphenoxylate-atropine 2.5-0.025 mg tablet 2 tab PO QIDP PRN (Reason: IBS) Patient Comments: TAKE 2 TABLETS BY MOUTH 4 TIMES DAILY NEEDED levothyroxine 75 mcg tablet 75 mcg PO AM Patient Comments: TAKE 1 TABLET BY MOUTH ONCE DAILY 1 HOUR BEFORE BREAKFAST primidone 250 mg tablet 250 mg PO HS Patient Comments: USE DIRECTED AT BEDTIME insulin aspart U-100 [Novolog U-100 Insulin aspart] 100 unit/mL solution See Rx Instructions .ROUTE .COMPLEX Patient Comments: USE DIRECTED VIA INSULIN PUMP MAXIMUM OF 100 UNITS PER DAY Rx Instructions: Doctor's Order divalproex 500 mg tablet extended release 24 hr 500 mg PO DAILY Patient Comments: TAKE 1 TABLET BY MOUTH ONCE DAILY mirtazapine 15 mg tablet 15 mg PO HS Patient Comments: TAKE 1 TABLET BY MOUTH ONCE DAILY AT NIGHT albuterol sulfate 90 mcg/actuation HFA aerosol inhaler 2 inh INHALATION Q6HP PRN (Reason: Breathing Problems) Patient Comments: INHALE 2 PUFFS BY MOUTH EVERY 6 HOURS hydroxyzine pamoate 25 mg capsule 25 mg PO DIRECTED Patient Comments: TAKE 1 CAPSULE BY MOUTH IN THE MORNING AND 2 AT BEDTIME FOR ANXIETY temazepam 22.5 mg capsule 22.5 mg PO HSP PRN (Reason: Insomnia) Patient Comments: TAKE 1 CAPSULE BY MOUTH AT NIGHT NEEDED FOR SLEEP Viberzi 100 mg tablet 100 mg PO BID Patient Comments: TAKE 1 TABLET BY MOUTH TWICE DAILY WITH FOOD oxycodone 5 mg tablet 5 mg PO Q8H PRN (Reason: pain) Qty: 10 0RF Referrals Follow up/Referrals: Enoch Alonzo MD [Primary Care Provider] - See instructions Activity Restrictions/Add. Instructions Additional Instructions/Restrictions: Please return to the emergency department if you experience any new or worsening symptoms. Clinical Impressions Clinical Impression: Hypoglycemia Discharge ED Provider: Jad Allison Adult HPI General Chief complaint: PAIN Stated complaint: leg pain Time Seen by Provider: 03/26/23 18:29 Mode of Arrival: EMS Source of Information: Patient Limitations: Physical Limitations Description of Symptoms (Recalled from ER Triage Doc. by RN): Pt c/o nausea with poor appetite for several days. She also c/o exacerbation of chronic LLE pale. States she was seen last week after striking her LLE on a coffee table and received pain medication. However, she states her pharmacist told her not to take it as it would interact with her other medicinces . History of Present Illness HPI narrative: Patient presents for evaluation of intractable left lower extremity pain, preceded by injury on a coffee table several days ago, patient was evaluated by me at that time and found to have no acute osseous abnormalities on x-ray imaging, no new injury since then, patient was discharged with knee immobilizer but has not been routinely wearing that at her home. Patient has yet to follow-up with orthopedist or primary care doctor regarding this new injury. Patient was prescribed short course of opiate analgesia for intractable pain when I saw her last, however has not taken this medication after reportedly discussing risks and benefits with pharmacist. No pain elsewhere, no fevers or chills or leg pain or leg swelling. Patient does note history of decreased p.o. intake for unspecified reason with no exacerbating or alleviating factors, has been able
--- NOTE | 2023-03-26 18:41 | XR_ITS ---
PROCEDURE INFORMATION: Exam: XR Chest Exam date and time: 03/26/2023 6:48 PM Age: 57 years old Clinical indication: Shortness of breath; Additional info: SOA TECHNIQUE: Imaging protocol: Radiologic exam of the chest. Views: 1 view. COMPARISON: CR XR CHEST PORTABLE 12/26/2022 1:37 PM FINDINGS: Lungs: Bibasilar atelectasis versus parenchymal scarring. Pleural spaces: Unremarkable. No pleural effusion. No pneumothorax. Heart/Mediastinum: Unremarkable. No cardiomegaly. Bones/joints: Unremarkable. IMPRESSION: No evidence of acute cardiopulmonary disease.
[2023-03-26 19:10] LABS: Basophils % 0.2 % (0.1-2.0); Eosinophils # 0.1 K/mm3 (0.0-0.4); Eosinophils % 0.6 % (0.1-12.0); Hematocrit 36.9 % (37.0-47.0); Lymphocytes # 1.3 K/mm3 (0.7-4.5); Lymphocytes % 9.8 % (10-50); Mean Corpuscular HGB Conc 32.5 g/dL (31.8-35.4); Mean Corpuscular Hemoglobin 29.4 pg (27.0-31.2); Mean Corpuscular Volume 90.6 fl (81-99); Mean Platelet Volume 8.6 fl (7.4-10.4); Monocytes # 0.6 K/mm3 (0.1-1.0); Monocytes % 4.6 % (1.7-9.3); Neutrophils # 10.9 K/mm3 (1.8-7.8); Neutrophils % 84.9 % (37.0-80.0); Platelet Count 633 K/mm3 (142-424); Red Blood Count 4.08 M/mm3 (4.20-5.40); Red Cell Distribution Width 16.1 % (11.5-17.5); White Blood Count 12.8 K/mm3 (4.8-10.8)
[2023-03-26 19:22] LABS: Chloride 106 mmol/L (98-107); Sodium 143 mmol/L (136-145)
[2023-03-26 19:25] LABS: Alanine Aminotransferase 20 U/L (12-78); Albumin/Globulin Ratio 0.9 (1.1-1.8); Alkaline Phosphatase 312 U/L (38-126); Aspartate Amino Transferase 37 U/L (14-36); Blood Urea Nitrogen 10 mg/dl (7-17); Calcium 9.4 mg/dl (8.4-10.2); Carbon Dioxide 30 mmol/L (22.0-30.0); Creatinine Clearance Estimated 95 mL/min (50-200); Estimated Glomerular Filt Rate 86 ml/min (>60); GFR (African American) 104 ML/MIN (>60); Globulin 3.5 g/dL (1.3-3.2); Magnesium 1.8 mg/dl (1.6-2.3); Phosphorous 3.6 mg/dl (2.5-4.5); Total Protein,Serum 6.5 g/dl (6.3-8.2)
[2023-03-26 19:42] LABS: Anion Gap 10.2 mEq/L (5-15); Bilirubin,Total 0.1 mg/dl (0.2-1.3); Potassium 3.2 mmoL/L (3.5-5.1)
[2023-03-26 19:44] LABS: Glucose 41 mg/dl (74-100)
--- NOTE | 2023-03-26 19:48 | PC.NURSE ---
Dr. Allison notified of critical glucose of 41. Obtaining bedside glucose now
--- NOTE | 2023-03-26 19:51 | PC.NURSE ---
bedside FS 51. Pt is A&Ox3 and gave pt PB, crackers, and a soda to drink. OK'ed by .
[2023-03-26 19:57] LABS: POC Glucose,Bedside 51 (70-110)
[2023-03-26 21:27] LABS: POC Glucose,Bedside 124 (70-110)
[2023-03-26 21:32] VITALS: BP 145/74; PULSE 91; RESP 18; TEMP 37.1; O2SAT 96
== END 2023-03-26 21:37 | disposition home or self-care (01) ==
PROVIDERS: Emergency Provider Emergency Medicine; PCP Internal Medicine Adolescent Medicine
DX: E11.649 Type 2 diabetes mellitus with hypoglycemia without coma (principal); M79.605 Pain in left leg; R11.0 Nausea; I25.10 Atherosclerotic heart disease of native coronary artery without angina pectoris; I10 Essential (primary) hypertension; E78.5 Hyperlipidemia, unspecified; E07.9 Disorder of thyroid, unspecified; F17.200 Nicotine dependence, unspecified, uncomplicated
CPT/HCPCS: 71045; 80053; 82962; 83735; 84100; 85025; 96374; 99285

== ENCOUNTER 2023-04-17 01:32 | Observation (INO) | payer MEDICARE, MEDICAID, SELFPAY ==
[2023-04-17] VITALS (12 sets, daily range): BP systolic 116–179; BP diastolic 48–90; PULSE 78–121; RESP 15–27; TEMP 36.3–38.2; O2SAT 90–98; BMI 29.9; BMI 27.7
--- NOTE | 2023-04-17 01:37 | ECG_ITS ---
APPROVED REPORT Exam: Resting ECG HR:120 bpm ECG Measurements Heart Rate 120 AXES MD 155 P 79 QRSd 74 QRS 66 QT 340 T 61 QTc 411 Conclusion SINUS TACHYCARDIA WITH FREQUENT SUPRAVENTRICULAR PREMATURE COMPLEXES MINIMAL ST DEPRESSION [0.025+ mV ST DEPRESSION] ABNORMAL RHYTHM ECG UNCONFIRMED REPORT Electronically signed by : Enoch Alonzo MD 04/17/2023 17:12:46
--- NOTE | 2023-04-17 01:38 | XR_ITS ---
PROCEDURE INFORMATION: Exam: XR Chest Exam date and time: 04/17/2023 2:00 AM Age: 58 years old Clinical indication: Dyspnea TECHNIQUE: Imaging protocol: Radiologic exam of the chest. Views: 1 view. Total images: 1 COMPARISON: CR XR CHEST PORTABLE 03/26/2023 6:48 PM FINDINGS: Tubes, catheters and devices: EKG leads are present. EKG leads are present. Lungs: Diffuse moderate bilateral peripheral predominant interstitial and ground-glass airspace opacification. No pulmonary vascular congestion or interstitial edema. Pleural spaces: Unremarkable. No pleural effusion. No pneumothorax. Heart/Mediastinum: Unremarkable. No cardiomegaly. No mediastinal widening or hilar enlargement. Vasculature: Atherosclerotic thoracic aorta. Bones/joints: Compression deformity with kyphoplasty changes of an upper thoracic vertebral body. IMPRESSION: Acute moderate diffuse bilateral pneumonitis or atypical viral pneumonia. Doubt pulmonary edema.
--- NOTE | 2023-04-17 01:39 | HMH.EDGENADL ---
Discharge Plan Disposition Patient Disposition: Admitted Prescriptions Prescriptions: No Action Brilinta 90 mg tablet 90 mg PO BID Qty: 60 7RF atorvastatin 40 mg tablet 40 mg PO HS Qty: 30 5RF quetiapine 300 mg tablet 300 mg PO HS Patient Comments: TAKE 1 TABLET BY MOUTH ONCE DAILY AT NIGHT tizanidine 4 mg tablet 4 mg PO Q6HP PRN (Reason: Pain) Patient Comments: TAKE 1 TABLET BY MOUTH EVERY 6 HOURS DIRECTED FOR 30 DAYS diphenoxylate-atropine 2.5-0.025 mg tablet 2 tab PO QIDP PRN (Reason: IBS) Patient Comments: TAKE 2 TABLETS BY MOUTH 4 TIMES DAILY NEEDED levothyroxine 75 mcg tablet 75 mcg PO AM Patient Comments: TAKE 1 TABLET BY MOUTH ONCE DAILY 1 HOUR BEFORE BREAKFAST insulin aspart U-100 [Novolog U-100 Insulin aspart] 100 unit/mL solution See Rx Instructions .ROUTE .COMPLEX Patient Comments: USE DIRECTED VIA INSULIN PUMP MAXIMUM OF 100 UNITS PER DAY Rx Instructions: Doctor's Order divalproex 500 mg tablet extended release 24 hr 500 mg PO DAILY Patient Comments: TAKE 1 TABLET BY MOUTH ONCE DAILY albuterol sulfate 90 mcg/actuation HFA aerosol inhaler 2 inh INHALATION Q6HP PRN (Reason: Breathing Problems) Patient Comments: INHALE 2 PUFFS BY MOUTH EVERY 6 HOURS hydroxyzine pamoate 25 mg capsule 25 mg PO DIRECTED Patient Comments: TAKE 1 CAPSULE BY MOUTH IN THE MORNING AND 2 AT BEDTIME FOR ANXIETY temazepam 22.5 mg capsule 22.5 mg PO HSP PRN (Reason: Insomnia) Patient Comments: TAKE 1 CAPSULE BY MOUTH AT NIGHT NEEDED FOR SLEEP Clinical Impressions Clinical Impression: Hypoglycemia, Hypoxemia, Severe sepsis, CAP (community acquired pneumonia) Instructions Patient Instructions: DI for Hyperglycemia -- Adult Discharge ED Provider: Florence Villatoro General Adult HPI General Chief complaint: Hyper/Hypoglycemia Stated complaint: Hypoglycemia Time Seen by Provider: 04/17/23 01:37 History of Present Illness HPI narrative: Patient is a 58-year-old female here today for hypoglycemia brought in by EMS. EMS crew states this is the third time they ran on her in the last several days. Initial call was for hypoglycemia she had an insulin pump that she was told to return down patient continues to not be able to eat and sit in the chair and has not moved over the last several days. She also has a new cough over the last several days and just has had no appetite she states. She specifically denies any fevers or chills nausea vomiting chest pain shortness of breath etc. She does have a history of coronary artery disease denies any history of COPD but states she has been smoking for 20 to 30 years. According to EMS her oxygen saturations were 89% on room air and they gave her a DuoNeb which she states made her feel somewhat better prior to arrival. She did not have an IV but her glucose was 49 in route. Given the fact that this is the third call she has been very lethargic sitting in chair they decided to bring her into the emergency department tonight. Patient states that she has not had COVID in the past but she is vaccinated. Has not been around anybody with sick contact that she is aware of. Related Data Home Medications Medication Instructions Recorded Confirmed albuterol sulfate 90 mcg/actuation 2 inh inhalation Q6HP PRN 12/26/22 04/17/23 aerosol inhaler Breathing Problems diphenoxylate-atropine 2.5 2 tab PO QIDP PRN IBS 12/26/22 04/17/23 mg-0.025 mg tablet divalproex 500 mg tablet,extended 500 mg PO DAILY Seizure 12/26/22 04/17/23 release 24 hr hydroxyzine pamoate 25 mg capsule 25 mg PO DIRECTED Anxiety 12/26/22 04/17/23 insulin aspart U-100 100 unit/mL See Rx Instructions .Route 12/26/22 04/17/23 subcutaneous solution (Novolog .COMPLEX Sliding Scale U-100 Insulin aspart) Hyperglycemia levothyroxine 75 mcg tablet 75 mcg PO AM Thyroid 12/26/22 04/17/23 quetiapine 30
--- NOTE | 2023-04-17 01:40 | PC.NURSE ---
insulin pump turned off.
[2023-04-17 01:49] LABS: VBG Base Excess -0.5 mmol/L (-2.4-2.3); VBG HCO3 24.6 mmol/L (23-30); VBG Oxygen Saturation 66.6 % (50-70); VBG PCO2 42.3 mmol/L (35-51); VBG PH 7.38 mmol/L (7.31-7.41); VBG PO2 34.7 mmol/L (28-40); VBG Total CO2 25.9 mmol/L (23-27)
[2023-04-17 01:51] LABS: Basophils % 0.2 % (0.1-2.0); Chloride 102 mmol/L (98-107); Eosinophils % 0.2 % (0.1-12.0); Hematocrit 37.3 % (37.0-47.0); Hemoglobin 11.5 g/dL (12.2-16.2); Lymphocytes # 0.6 K/mm3 (0.7-4.5); Lymphocytes % 3.2 % (10-50); Mean Corpuscular HGB Conc 30.8 g/dL (31.8-35.4); Mean Corpuscular Hemoglobin 27.2 pg (27.0-31.2); Mean Corpuscular Volume 88.3 fl (81-99); Mean Platelet Volume 8.5 fl (7.4-10.4); Monocytes # 0.7 K/mm3 (0.1-1.0); Monocytes % 3.7 % (1.7-9.3); Neutrophils # 17.3 K/mm3 (1.8-7.8); Neutrophils % 92.7 % (37.0-80.0); Platelet Count 550 K/mm3 (142-424); Potassium 3.3 mmoL/L (3.5-5.1); Red Blood Count 4.23 M/mm3 (4.20-5.40); Red Cell Distribution Width 16.7 % (11.5-17.5); Sodium 141 mmol/L (136-145); White Blood Count 18.7 K/mm3 (4.8-10.8)
[2023-04-17 01:53] LABS: Alanine Aminotransferase 34 U/L (12-78); Aspartate Amino Transferase 59 U/L (14-36); Blood Urea Nitrogen 11 mg/dl (7-17); Creatinine Clearance Estimated 100 mL/min (50-200); Estimated Glomerular Filt Rate 85 ml/min (>60); GFR (African American) 103 ML/MIN (>60)
[2023-04-17 01:54] LABS: Albumin Level 2.7 g/dl (3.5-5.0); Albumin/Globulin Ratio 0.7 (1.1-1.8); Alkaline Phosphatase 404 U/L (38-126); Anion Gap 12.3 mEq/L (5-15); Bilirubin,Total 0.4 mg/dl (0.2-1.3); Calcium 8.6 mg/dl (8.4-10.2); Carbon Dioxide 30 mmol/L (22.0-30.0); Globulin 3.8 g/dL (1.3-3.2); Glucose 106 mg/dl (74-100); Magnesium 1.7 mg/dl (1.6-2.3); Phosphorous 3.3 mg/dl (2.5-4.5); Total Protein,Serum 6.5 g/dl (6.3-8.2)
--- NOTE | 2023-04-17 01:56 | PC.NURSE ---
md discussing plan of care with patient. patient agreeable to admit.
[2023-04-17 01:57] LABS: Lactic Acid 2.1 mmol/L (0.7-2.1)
[2023-04-17 01:59] LABS: MANUAL DIFFERENTIAL MANUAL DIFFERENTIAL (MANUAL DIFF)
[2023-04-17 02:07] LABS: Troponin I 0.03 ng/ml (0.00-0.034)
[2023-04-17 02:09] LABS: Coronavirus 19, PCR Not Detected (NotDetected); Influenza A, PCR Not Detected (NotDetected); Influenza B, PCR Not Detected (NotDetected)
--- NOTE | 2023-04-17 02:12 | PC.NURSE ---
talking with Héctor the hospitalist at this time.
--- NOTE | 2023-04-17 02:13 | PC.NURSE ---
Talk to S.Call warehouse traffic supervisor for Admission at this time.
--- NOTE | 2023-04-17 02:19 | EXP.HP ---
History of Present Illness *Admission Date: 04/17/23 [facility] Disclaimer: The information contained in this section may have been updated after the patient was seen, as this information can be updated by other users. Medical History (Updated 04/17/23 @ 01:47 by Florence Villatoro MD) CAD (coronary atherosclerotic disease) Cellulitis Diabetes Diabetes mellitus Diastolic dysfunction Hyperlipidemia Hypertension Insulin pump in place Mood disorder Thyroid disease Tobacco dependence syndrome Surgical History H/O section H/O knee surgery Stented coronary artery Family History Other No significant family history Social History Smoking Status: Current every day smoker alcohol intake: never current occupational status: other Travel in the last 8 weeks: None Meds Home Medications and Allergies Home Medications Medication Instructions Recorded Confirmed Type albuterol sulfate 90 mcg/actuation 2 inh inhalation Q6HP PRN 12/26/22 04/17/23 History aerosol inhaler Breathing Problems diphenoxylate-atropine 2.5 2 tab PO QIDP PRN IBS 12/26/22 04/17/23 History mg-0.025 mg tablet divalproex 500 mg tablet,extended 500 mg PO DAILY Seizure 12/26/22 04/17/23 History release 24 hr hydroxyzine pamoate 25 mg capsule 25 mg PO DIRECTED Anxiety 12/26/22 04/17/23 History insulin aspart U-100 100 unit/mL See Rx Instructions .Route 12/26/22 04/17/23 History subcutaneous solution (Novolog .COMPLEX Sliding Scale U-100 Insulin aspart) Hyperglycemia levothyroxine 75 mcg tablet 75 mcg PO AM Thyroid 12/26/22 04/17/23 History quetiapine 300 mg tablet 300 mg PO HS Mood 12/26/22 04/17/23 History temazepam 22.5 mg capsule 22.5 mg PO HSP PRN Insomnia 12/26/22 04/17/23 History tizanidine 4 mg tablet 4 mg PO Q6HP PRN Pain 12/26/22 04/17/23 History ticagrelor 90 mg tablet (Brilinta) 90 mg PO BID Blood thinner #60 tabs 03/14/23 04/17/23 Rx atorvastatin 40 mg tablet 40 mg PO HS Cholesterol #30 tabs 03/27/23 04/17/23 Rx New Prescriptions to Start Prescriptions: Allergies Allergy/AdvReac Type Severity Reaction Status Date / Time clindamycin Allergy Verified 04/05/23 09:38 Exam Data for Last 24 hours Vital signs and Labs for Last 24 Hours: Temp Pulse Resp Pulse Ox O2 Del Method 100.8 F H 121 H 27 H 90 L Room Air 04/17/23 01:41 04/17/23 01:41 04/17/23 01:41 04/17/23 01:41 04/17/23 01:41 Laboratory Results - last 24 hr 04/17/23 01:36: WBC 18.7 H, RBC 4.23, Hgb 11.5 L, Hct 37.3, MCV 88.3, MCH 27.2, MCHC 30.8 L, RDW 16.7, Plt Count 550 H, MPV 8.5, Neut % (Auto) 92.7 H, Lymph % (Auto) 3.2 L, [place] % (Auto) 3.7, Eos % (Auto) 0.2, Baso % (Auto) 0.2, Neut # (Auto) 17.3 H, Lymph # (Auto) 0.6 L, [place]dwell # (Auto) 0.7, Eos # (Auto) 0.0, Baso # (Auto) 0.0, Sodium 141, Potassium 3.3 L, Chloride 102, Carbon Dioxide 30, Anion Gap 12.3, BUN 11, Creatinine 0.70, Estimated Creat Clear 100, Estimated GFR 85, Est GFR ( Amer) 103, Glucose 106 H, Lactate 2.1, Calcium 8.6, Phosphorus 3.3, Magnesium 1.7, Total Bilirubin 0.4, AST 59 H, ALT 34, Alkaline Phosphatase 404 H, Troponin I 0.03, Total Protein 6.5, Albumin 2.7 L, Globulin 3.8 H, Albumin/Globulin Ratio 0.7 L 04/17/23 01:38: VBG pH 7.38, VBG pCO2 42.3, VBG pO2 34.7, VBG HCO3 24.6, VBG Total CO2 25.9, VBG O2 Saturation 66.6, VBG Base Excess -0.5 I & O for Last 24 hours: Intake & Output 04/14/23 04/15/23 04/16/23 04/17/23 23:59 23:59 23:59 23:59 Weight 74.389 kg
[2023-04-17 02:25] LABS: Thyroid Stimulating Hormone 0.72 uIU/mL (0.465-4.68)
--- NOTE | 2023-04-17 02:26 | PC.NURSE ---
Paged at this time.
--- NOTE | 2023-04-17 02:56 | PC.NURSE ---
pt arrived to floor at this time
[2023-04-17 02:57] LABS: Microscopic, Urine URINE MICROSCOPIC (MICROSCOPIC)
[2023-04-17 02:59] LABS: Appearance,Urine CLEAR (Clear); Bilirubin,Urine Negative (Negative); Blood, Urine TRACE-I (Negative); Color,Urine YELLOW (Yellow); Glucose,Urine (UA) TRACE (Negative); Ketones,Urine Negative (Negative); Leukocyte Esterase,Urine TRACE (Negative); Nitrate,Urine Negative (Negative); Protein,Urine Negative (Negative); Urobilinogen,Urine 0.2 EU/dl (0.2)
[2023-04-17 03:23] LABS: Bacteria,Urine 1+ /lpf; RBC,Urine Occasional #/hpf (0-3); WBC,Urine Occasional #/hpf (0-3)
[2023-04-17 03:38] LABS: Lymphocytes % 7 % (10-50); Neutrophils % 93 % (42-76); Platelet Estimate Normal; RBC Morphology Normal; Total Cells Counted 100
[2023-04-17 05:19] LABS: Reflex Lactic Add Lactic Reflex
[2023-04-17 05:55] LABS: POC Glucose,Bedside 314 (70-110)
--- NOTE | 2023-04-17 05:56 | PC.NURSE ---
Dr. Martinez returned call. Advised of high FSBS result. Verbal order for low intensity SS insulin
[2023-04-17 05:57] LABS: Basophils % 0.1 % (0.1-2.0); Eosinophils % 0.1 % (0.1-12.0); Hematocrit 30.3 % (37.0-47.0); Lymphocytes # 0.9 K/mm3 (0.7-4.5); Lymphocytes % 6.5 % (10-50); Mean Corpuscular HGB Conc 30.9 g/dL (31.8-35.4); Mean Corpuscular Hemoglobin 27.7 pg (27.0-31.2); Mean Corpuscular Volume 89.8 fl (81-99); Monocytes # 0.7 K/mm3 (0.1-1.0); Monocytes % 5.4 % (1.7-9.3); Neutrophils # 11.7 K/mm3 (1.8-7.8); Neutrophils % 87.9 % (37.0-80.0); Platelet Count 418 K/mm3 (142-424); Red Blood Count 3.38 M/mm3 (4.20-5.40); Red Cell Distribution Width 16.8 % (11.5-17.5); White Blood Count 13.3 K/mm3 (4.8-10.8)
[2023-04-17 05:58] LABS: Anion Gap 12.4 mEq/L (5-15); Blood Urea Nitrogen 10 mg/dl (7-17); Calcium 7.3 mg/dl (8.4-10.2); Carbon Dioxide 25 mmol/L (22.0-30.0); Chloride 101 mmol/L (98-107); Creatinine Clearance Estimated 108 mL/min (50-200); Estimated Glomerular Filt Rate 102 ml/min (>60); GFR (African American) 123 ML/MIN (>60); Glucose 254 mg/dl (74-100); Lactic Acid Follow Up (RFLX 1) 0.8 mmol/L (0.7-2.1); Potassium 3.4 mmoL/L (3.5-5.1); Sodium 135 mmol/L (136-145)
[2023-04-17 06:17] LABS: Hemoglobin 9.5 g/dL (12.2-16.2)
[2023-04-17 06:38] LABS: Troponin I 0.08 ng/ml (0.00-0.034)
--- NOTE | 2023-04-17 08:22 | HMH.PHAINT1 ---
Pharmacy Intervention Comments: Medication history complete, medications verified with fill history. - Leonie Magallon, PharmD Candidate 2023
--- NOTE | 2023-04-17 08:27 | EXP.HP ---
History of Present Illness *Admission Date: 04/17/23 *Reason for visit:: Cough/congestion *History of present illness: 58-year-old female with history of diastolic dysfunction, severe tobacco use disorder and history of COPD who presented to the hospital with shortness of air and coughing after being sick over the past 5 or 6 days. Had a fever over the past 24 hours. When she came to the emergency department met sepsis criteria with tachycardia, elevated white count and evidence of organ dysfunction with hypoxia. Noted to have viral appearing pneumonia infiltrates. COVID and flu testing were negative. Blood cultures drawn, started on antibiotics and admitted to the hospital. [facility] Disclaimer: The information contained in this section may have been updated after the patient was seen, as this information can be updated by other users. Medical History CAD (coronary atherosclerotic disease) Cellulitis Diabetes Diabetes mellitus Diastolic dysfunction Hyperlipidemia Hypertension Insulin pump in place Mood disorder Thyroid disease Tobacco dependence syndrome Surgical History H/O section H/O knee surgery Stented coronary artery Family History Other No significant family history Social History (Updated 04/17/23 @ 03:17 by Darien Qureshi RN) Smoking Status: Current every day smoker alcohol intake: never current occupational status: other Travel in the last 8 weeks: None Review of Systems Review of Systems Review of systems:: pertinent systems reviewed and negative unless documented below Meds Home Medications and Allergies Home Medications Medication Instructions Recorded Confirmed Type albuterol sulfate 90 mcg/actuation 2 inh inhalation Q6HP PRN 12/26/22 04/17/23 History aerosol inhaler Breathing Problems diphenoxylate-atropine 2.5 2 tab PO QIDP PRN IBS 12/26/22 04/17/23 History mg-0.025 mg tablet divalproex 500 mg tablet,extended 500 mg PO DAILY Seizure 12/26/22 04/17/23 History release 24 hr hydroxyzine pamoate 25 mg capsule 25 mg PO AM Anxiety 12/26/22 04/17/23 History insulin aspart U-100 100 unit/mL See Rx Instructions .Route 12/26/22 04/17/23 History subcutaneous solution (Novolog .COMPLEX Sliding Scale U-100 Insulin aspart) Hyperglycemia levothyroxine 75 mcg tablet 75 mcg PO AM Thyroid 12/26/22 04/17/23 History quetiapine 300 mg tablet 300 mg PO HS Mood 12/26/22 04/17/23 History temazepam 22.5 mg capsule 22.5 mg PO HSP PRN Insomnia 12/26/22 04/17/23 History tizanidine 4 mg tablet 4 mg PO Q6HP PRN Pain 12/26/22 04/17/23 History ticagrelor 90 mg tablet (Brilinta) 90 mg PO BID Blood thinner #60 tabs 03/14/23 04/17/23 Rx atorvastatin 40 mg tablet 40 mg PO HS Cholesterol #30 tabs 03/27/23 04/17/23 Rx eluxadoline 100 mg tablet (Viberzi) 100 mg PO DAILY IBS 04/17/23 04/17/23 History famotidine 20 mg tablet 20 mg PO BID Acid Reflux 04/17/23 04/17/23 History hydroxyzine HCl 25 mg tablet 50 mg PO HS Mood 04/17/23 04/17/23 History mirtazapine 15 mg tablet 15 mg PO HS Mood 04/17/23 04/17/23 History primidone 250 mg tablet 250 mg PO HS Seizures 04/17/23 04/17/23 History prochlorperazine maleate 10 mg 10 mg PO Q8HP PRN Nausea 04/17/23 04/17/23 History tablet teriparatide 20 mcg/dose (600 20 mcg SQ DAILY Osteoporosis 04/17/23 04/17/23 History mcg/2.4 mL) subcutaneous pen injector (Forteo) New Prescriptions to Start Prescriptions: Allergies Allergy/AdvReac Type Severity Reaction Status Date / Time clindamycin Allergy Verified 04/05/23 09:38 Exam Data for Last 24 hours Vital signs and Labs for Last 24 Hours: Temp Pulse Resp BP Pulse Ox O2 Del Method O2 Flow Rate 99 F 103 H 21 152/69 H 95 Nasal Cannula 2 04/17/23 04:00 04/17/23 04:01 04/17/23 04:00 04/17/23 04:00 04/17/23 04:00
[2023-04-17 08:56] LABS: Adenovirus,PCR Not Detected (NotDetected); Bordetella Pertussis Not Detected (NotDetected); Chlamydophila Pneumoniae, PCR Not Detected (NotDetected); Coronavirus 19, PCR Not Detected (NotDetected); Coronavirus 229E Not Detected (NotDetected); Coronavirus NL63 Not Detected (NotDetected); Coronavirus OC43 Not Detected (NotDetected); Coronovirus HKU1,PCR Not Detected (NotDetected); Human Metapneumovirus Not Detected (NotDetected); Influenza A, PCR Not Detected (NotDetected); Influenza AH1, 2009 Not Detected (NotDetected); Influenza AH1, PCR Not Detected (NotDetected); Influenza AH3,PCR Not Detected (NotDetected); Influenza B, PCR Not Detected (NotDetected); Mycoplasma Pneumoniae, PCR Not Detected (NotDetected); Parainfluenza 1, PCR Not Detected (NotDetected); Parainfluenza 2, PCR Not Detected (NotDetected); Parainfluenza 3, PCR Not Detected (NotDetected); Parainfluenza 4, PCR Not Detected (NotDetected); Respiratory Syncytial Virus Not Detected (NotDetected); Rhinovirus/Enterovirus Not Detected (NotDetected)
--- NOTE | 2023-04-17 10:09 | HMH.PTEV ---
Physical Therapy Evaluation Rehab PT IP Evaluation Start: 04/17/23 08:15 Freq: ONCE Status: Active Protocol: Document 04/17/23 10:03 SARA (Rec: 04/17/23 10:09 SARA [id number]) Subjective/History History History Patient is a 58 year old female admitted to [facility] 04/17/23 secondary to SOA. Patient has hx of COPD. She reports that she does not use supplemental O2 at home. Patient reports feeling sick for the past 5-6 days, with increasing SOA for approximately the last 2 days. Patient currently lives at home with her and independent with all ADL's/ ambulatory activities. Subjective Subjective I've just been feeling sick for the past few days. New diagnosis of cancer in past 12 No months? Rehab PT IP Eval Objective Appearance Patient Behavior Appropriate,Cooperative Patient Orientation Person,Place Difficulty following instructions none Speech Pattern Clear,Appropriate Ambulation Patient Able to Ambulate Yes Ambulation Observation IP General Gait Pattern Observation No Deviations/Normal Ambulation Distance (feet) 10 Ambulation Assistive Device None Ambulation Ability Contact Guard/Hand Hold Balance Ability to Arise Able, w/o using arms Sitting Balance Steady, safe Standing Balance Narrow stance w/o support Dynamic Sitting Balance Ability Normal Dynamic Standing Balance Ability Normal Transfers Bed Transfer Ability Independent Sit to Stand Bed Transfer Ability Contact Guard/Hand Hold ROM All Extremities PT ROM Status WFL MMT All Extremities PT MMT WFL Rehab PT IP prob,goals,plan Problems Date of Evaluation: 04/17/23 Rehab Potential Rehab Potential Good Discharge Plan PT Discharge Plan At this point, PT suggests that patient is good to DC home with spouse once found medically stable by . G -code Required No PHYSICIAN CERTIFICATION: I certify the specified therapy services for Lan Garcia are required, authorized, and reviewed every 30 days.
--- NOTE | 2023-04-17 10:44 | PC.NURSE ---
Lab called for a stat blood glucose. Pt'a sugar was 45 and a second check was 43. Pt. drinking a pop and eating PB and crackers.
--- NOTE | 2023-04-17 10:45 | HMH.OTEV ---
OT Inpatient Evaluation Rehab OT IP Evaluation Start: 04/17/23 08:15 Freq: ONCE Status: Active Protocol: Document 04/17/23 10:39 RENNY (Rec: [facility]17[facility]23 10[id number] Rehab OT IP Assessment Subjective History Pt oriented x 4 on arrival, pt agreeable to engage in therapy evaluation. Patient is a 58 year old female admitted to [facility] 04/17/23 secondary to SOA. Patient has hx of COPD. She reports that she does not use supplemental O2 at home. Patient reports feeling sick for the past 5-6 days, with increasing SOA for approximately the last 2 days. Patient currently lives at home with her and independent with all ADL's/ IADLs/ambulatory activities. Subjective I think I am feeling a little better. Objective Patient Orientation Person,Place,Birthday,Year Upper Extremity Gross ROM WFL Bed Mobility bed mobility-scooting,bed mobility - supine/sit,bed mobility - rolling Assist Level Supervision/Stand by Transfer Training Sit/Stand Transfer Assist Level Supervision/Stand by Lower Body Dressing Ability Standby Assistance Rehab OT IP prob,goals,plan Problems Date of Evaluation: 04/17/23 Rehab Potential Rehab Potential Innapropriate for Skilled Therapy Discharge Plan OT Discharge Plan At this time, pt appears to be at her baseline with functional transfers and ADL independence. Pt can return home with her once she is medically stable for discharge. Eval Complexity Eval Charge Codes 06115 - Low Complexity PHYSICIAN CERTIFICATION: I certify the specified therapy services for Lan Garcia are required, authorized, and reviewed every 30 days.
--- NOTE | 2023-04-17 10:52 | PC.NURSE ---
Number called in Summer several times and it's busy.
--- NOTE | 2023-04-17 11:35 | PC.NURSE ---
fsbg after 1/2 an amp of d50 126.
[2023-04-17 11:42] LABS: POC Glucose,Bedside 126 (70-110)
[2023-04-17 16:19] LABS: POC Glucose,Bedside 393 (70-110)
--- NOTE | 2023-04-17 18:27 | PC.NURSE ---
Pt stated she wanted to go outside for fresh air. She was discouraged to leave floor. Education was provided on safety. Pt accepted Nicotine patch.
--- NOTE | 2023-04-17 20:19 | PC.NURSE ---
Spoke with Jae with the [facility] hanging rocephen and zithromax with D5NS. Jae stated that they were ok to hang with the D5NS.
[2023-04-17 21:17] LABS: POC Glucose,Bedside 204 (70-110)
--- NOTE | 2023-04-17 21:43 | PC.NURSE ---
Addendum entered by Alondra Holland RN 04/18/23 02:27: Per pharmacy, we do not have tomazepam 7.5 mg available. Original Note: Pt was given temazepam 15mg for insomnia prn. Pt reports medication not effective. pt reports taking 22.5 mg nightly at home. spoke with Dr. Alonzo regarding pts home dose , and dose given tonight. Dr Alonzo states OK to give tomazepam 7.5mg now. Order sent to pharmacy per protocol.
--- NOTE | 2023-04-17 23:45 | PC.NURSE ---
Pt refused scheduled seroquel at 2100. Pt c/o insomnia again at 2340. Pt requesting seroquel at this time. Pt requesting to have 200mg instead of 300mg, stating this is what she takes at home. Dr Alonzo contacted, and made aware of situation. Orders received for Seroquel 200mg PO once.
--- NOTE | 2023-04-17 23:53 | PC.NURSE ---
Pt fsbs 77 at this time. pt given snack
[2023-04-18] VITALS: BP 134/65; PULSE 100; RESP 18; TEMP 36.7; O2SAT 100
[2023-04-18 00:52] LABS: POC Glucose,Bedside 77 (70-110)
[2023-04-18 00:52] LABS: POC Glucose,Bedside 129 (70-110)
[2023-04-18 00:52] LABS: POC Glucose,Bedside 73 (70-110)
[2023-04-18 04:00] VITALS: BP 122/44; PULSE 112; RESP 18; TEMP 37.6; O2SAT 93; BMI 29.5
--- NOTE | 2023-04-18 06:47 | PC.NURSE ---
[address] Alonzo notified. Orders received to DC D5 NS and start NS @ 100 ml/hr. 12 units SSI given. No additional insulin per Dr Alonzo.
[2023-04-18 06:55] LABS: Basophils % 0.3 % (0.1-2.0); Eosinophils # 0.2 K/mm3 (0.0-0.4); Eosinophils % 1.9 % (0.1-12.0); Hematocrit 29.4 % (37.0-47.0); Lymphocytes # 1.5 K/mm3 (0.7-4.5); Lymphocytes % 16.1 % (10-50); Mean Corpuscular HGB Conc 30.6 g/dL (31.8-35.4); Mean Corpuscular Hemoglobin 27.9 pg (27.0-31.2); Mean Corpuscular Volume 90.9 fl (81-99); Monocytes # 0.6 K/mm3 (0.1-1.0); Monocytes % 6.4 % (1.7-9.3); Neutrophils % 75.2 % (37.0-80.0); Platelet Count 459 K/mm3 (142-424); Red Blood Count 3.23 M/mm3 (4.20-5.40); Red Cell Distribution Width 17.1 % (11.5-17.5); White Blood Count 9.4 K/mm3 (4.8-10.8)
[2023-04-18 07:02] LABS: Anion Gap 9.6 mEq/L (5-15); Blood Urea Nitrogen 10 mg/dl (7-17); Calcium 7.2 mg/dl (8.4-10.2); Carbon Dioxide 25 mmol/L (22.0-30.0); Chloride 103 mmol/L (98-107); Creatinine Clearance Estimated 98 mL/min (50-200); Estimated Glomerular Filt Rate 85 ml/min (>60); GFR (African American) 103 ML/MIN (>60); Glucose 343 mg/dl (74-100); Sodium 135 mmol/L (136-145)
[2023-04-18 07:24] LABS: Potassium 2.6 mmoL/L (3.5-5.1)
--- NOTE | 2023-04-18 07:56 | EXP.ACUTE.PN ---
Subjective *Date: 04/18/23 *Time: 07:56 Interval history: Patient states she feels better this morning. Has been up and going to the bathroom by herself. Reports much less shortness of air and less coughing. She is afebrile. She was persuaded to not go outside and get some fresh air last night after the nurses prevailed upon her to do a nicotine patch instead of going outside. Medical Exam Vital signs and Labs for Last 24 Hours: Vital Signs Temp Pulse Resp BP Pulse Ox O2 Del Method O2 Flow Rate 04/18/23 06:44 Nasal Cannula 2 04/18/23 05:00 Nasal Cannula 2 04/18/23 04:00 99.6 F 112 H 18 122/44 L 93 L Room Air 04/18/23 03:00 Nasal Cannula 2 04/18/23 01:00 Nasal Cannula 2 04/18/23 00:00 98.1 F 100 H 18 134/65 100 Nasal Cannula 2 04/17/23 23:00 Nasal Cannula 2 04/17/23 21:00 Nasal Cannula 2 04/17/23 20:00 Nasal Cannula 2 04/17/23 20:00 98.2 F 111 H 18 128/90 95 Nasal Cannula 2 04/17/23 17:53 Nasal Cannula 2 04/17/23 16:00 98.1 F 116 H 19 116/48 L 94 L Nasal Cannula 04/17/23 16:18 Nasal Cannula 2 04/17/23 15:00 Nasal Cannula 04/17/23 12:00 97.4 F L 101 H 20 131/57 L 95 Nasal Cannula 2 04/17/23 13:00 Nasal Cannula 2 04/17/23 08:00 92 L Nasal Cannula 2 04/17/23 10:54 Nasal Cannula 2 04/17/23 09:00 Nasal Cannula 2 04/17/23 08:00 98.3 F 111 H 19 140/64 94 L Room Air Intake and Output 04/17/23 04/18/23 04/18/23 19:59 03:59 11:59 Intake Total 620 / 620 Output Total 0 / 700 700 / 700 Balance 620 / -80 -700 / -80 Intake: Intake, Oral Amount 120 / 120 Intake, Total IV Amount 500 / 500 Dextrose 5 % and 0.9 % NaCl 1, 500 / 500 000 ml @ 100 mls/hr IV .Q10H [facility] Rx#:[id number] Output: Output, Urine Amount 0 / 700 700 / 700 Other: Number of Voids 0 Number of Unmeasured Voids 1 Number of Bowel Movements 1 Weight 160 lb 6 oz Patient Weight 04/18/23 11:59 Weight 160 lb 6 oz Laboratory Results - last 24 hr 04/17/23 11:35: POC Glucose 126 H 04/17/23 16:11: POC Glucose 393 H* 04/17/23 19:59: POC Glucose 204 H 04/17/23 23:48: POC Glucose 77 04/17/23 : Chlamy pneumoniae PCR Not detected, Adenovirus (PCR) Not detected, B. pertussis DNA (PCR) Not detected, Coronavirus OC43 (PCR) Not detected, Coronavirus HKU1 (PCR) Not detected, Coronavirus 229E (PCR) Not detected, SARS-CoV-2 (PCR) Not detected, Coronavirus NL63 (PCR) Not detected, Human Metapneumovir PCR Not detected, Influenza A (H1) PCR Not detected, Influ A (H1N1/09) PCR Not detected, Influenza A (H3) PCR Not detected, Influenza Type A (PCR) Not detected, Influenza Type B (PCR) Not detected, M. pneumoniae (PCR) Not detected, Parainfluenza 1 (PCR) Not detected, Parainfluenza 2 (PCR) Not detected, Parainfluenza 3 (PCR) Not detected, Parainfluenza 4 (PCR) Not detected, RSV (PCR) Not detected, Entero/Rhino (PCR) Not detected 04/18/23 00:22: POC Glucose 73 04/18/23 00:45: POC Glucose 129 H 04/18/23 06:38: WBC 9.4 D, RBC 3.23 L, Hgb 9.0 L, Hct 29.4 L, MCV 90.9, MCH 27.9, MCHC 30.6 L, RDW 17.1, Plt Count 459 H, MPV 8.0, Neut % (Auto) 75.2, Lymph % (Auto) 16.1, [place] % (Auto) 6.4, Eos % (Auto) 1.9, Baso % (Auto) 0.3, Neut # (Auto) 7.0, Lymph # (Auto) 1.5, [place] # (Auto) 0.6, Eos # (Auto) 0.2, Baso # (Auto) 0.0 04/18/23 06:40: Sodium 135 L, Potassium 2.6 L* D, Chloride 103, Carbon Dioxide 25, Anion Gap 9.6, BUN 10, Creatinine 0.70, Estimated Creat Clear 98, Estimated GFR 85, Est GFR ( Amer) 103, Glucose 343 H, Calcium 7.2 L I & O for Labs for Last 24 Hours: Intake & Output 04/15/23 04/16/23 04/17/23 04/18/23 11:59 11:59 11:59 11:59 Intake Total 1525 / 1525 620 / 620 Output Total 0 / 0 700 / 700 Balance 1525 / 1525 -80 / -80 Weight 150 lb 9.6 oz 160 lb 6 oz Comment:: Alert, pleasant. Talkative, oropharynx clear. Lungs with better air entry, clear, no crackles. No wheezing.
[2023-04-18 07:57] VITALS: BP 143/57; PULSE 116; RESP 17; TEMP 37.1; O2SAT 95
[2023-04-18 08:49] VITALS: O2SAT 96
[2023-04-18 09:49] LABS: POC Glucose,Bedside 229 (70-110)
[2023-04-18 09:49] LABS: POC Glucose,Bedside 439 (70-110)
[2023-04-18 11:26] VITALS: BP 133/56; PULSE 107; RESP 17; TEMP 37.1; O2SAT 95
[2023-04-18 11:46] LABS: POC Glucose,Bedside 74 (70-110)
[2023-04-18 13:21] LABS: Chloride 107 mmol/L (98-107); Potassium 3.7 mmoL/L (3.5-5.1); Sodium 139 mmol/L (136-145)
[2023-04-18 13:24] LABS: Anion Gap 8.7 mEq/L (5-15); Blood Urea Nitrogen 10 mg/dl (7-17); Calcium 8.2 mg/dl (8.4-10.2); Carbon Dioxide 27 mmol/L (22.0-30.0); Creatinine Clearance Estimated 115 mL/min (50-200); Estimated Glomerular Filt Rate 102 ml/min (>60); GFR (African American) 123 ML/MIN (>60); Glucose 127 mg/dl (74-100)
--- NOTE | 2023-04-18 15:33 | EXP.DC.SUM ---
General Admission date:: 04/17/23 Discharge date: 04/18/23 HPI HPI HPI: 58-year-old female with history of diastolic dysfunction, severe tobacco use disorder and history of COPD who presented to the hospital with shortness of air and coughing after being sick over the past 5 or 6 days. Had a fever over the past 24 hours. When she came to the emergency department met sepsis criteria with tachycardia, elevated white count and evidence of organ dysfunction with hypoxia. Noted to have viral appearing pneumonia infiltrates. COVID and flu testing were negative. Blood cultures drawn, started on antibiotics and admitted to the hospital. Hospital Course Hospital Course Hospital Course: Patient was admitted, initially placed on ceftriaxone and azithromycin. Found to be significantly hypoglycemic and in the ER her subcutaneous insulin delivery device was removed. She was given several rounds of dextrose containing IV fluids and this improved. Chest x-ray showed bilateral viral appearing pneumonia. Her oxygen status improved over her first night and day in the hospital and she was able to go into room air today and spend most of the day on room air. She was found to be hypokalemic, replaced orally this morning and this afternoon her potassium was 3.7. Tolerating p.o. liquids today, food today for lunch and able to get up and move around the room and wish to be discharged. Blood and sputum cultures are non-diagnostic at the time of admission. White count improved and she has been afebrile for 24 hours. Exam Data for Last 24 hours Vital signs and Labs for Last 24 Hours: Temp Pulse Resp BP Pulse Ox O2 Del Method O2 Flow Rate 98.7 F 107 H 17 133/56 L 95 Room Air 1 04/18/23 11:26 04/18/23 11:26 04/18/23 11:26 04/18/23 11:26 04/18/23 11:04/18/23 15:00 04/18/23 07:57 Laboratory Results - last 24 hr 04/17/23 16:11: POC Glucose 393 H* 04/17/23 19:59: POC Glucose 204 H 04/17/23 23:48: POC Glucose 77 04/18/23 00:22: POC Glucose 73 04/18/23 00:45: POC Glucose 129 H 04/18/23 01:41: POC Glucose 229 H 04/18/23 05:29: POC Glucose 439 H* 04/18/23 06:38: WBC 9.4 D, RBC 3.23 L, Hgb 9.0 L, Hct 29.4 L, MCV 90.9, MCH 27.9, MCHC 30.6 L, RDW 17.1, Plt Count 459 H, MPV 8.0, Neut % (Auto) 75.2, Lymph % (Auto) 16.1, [place] % (Auto) 6.4, Eos % (Auto) 1.9, Baso % (Auto) 0.3, Neut # (Auto) 7.0, Lymph # (Auto) 1.5, [place] # (Auto) 0.6, Eos # (Auto) 0.2, Baso # (Auto) 0.0 04/18/23 06:40: Sodium 135 L, Potassium 2.6 L* D, Chloride 103, Carbon Dioxide 25, Anion Gap 9.6, BUN 10, Creatinine 0.70, Estimated Creat Clear 98, Estimated GFR 85, Est GFR ( Amer) 103, Glucose 343 H, Calcium 7.2 L 04/18/23 10:50: POC Glucose 74 04/18/23 12:46: Sodium 139, Potassium 3.7 D, Chloride 107, Carbon Dioxide 27, Anion Gap 8.7, BUN 10, Creatinine 0.60, Estimated Creat Clear 115, Estimated GFR 102, Est GFR ( Amer) 123, Glucose 127 H D, Calcium 8.2 L I & O for Last 24 hours: Intake & Output 04/16/23 04/17/23 04/18/23 04/19/23 11:59 11:59 11:59 11:59 Intake Total 1525 / 1525 860 / 860 240 / 240 Output Total 0 / 0 700 / 700 Balance 1525 / 1525 160 / 160 240 / 240 Weight 150 lb 9.6 oz 160 lb 6 oz Constitutional Constitutional: no acute distress *Routine HEENT Exam Head: Present normocephalic Eye: Present EOMI and PERRL ENT: Present mucous membranes moist *Routine Neck Exam Neck: Present supple; Absent lymphadenopathy *Routine Respiratory Exam Respiratory: Present rhonchi Comments: Bilateral rhonchi noted but vastly improved over admission exam *Routine Cardiovascular Exam Cardiovascular: Present RRR *Routine Abdominal Exam Abdominal: Present soft and normoactive bowel sounds; Absent tenderness *Routine Extremities Exam Extremities: Absent cyanosis, clubbing or edema *Routine Skin Exam Skin: Present warm; Absent rash *Routine Neurological Exam Neurological: Present alert and oriented X3 Results Data Completed and Pending Labs on
== END 2023-04-18 16:07 | disposition home or self-care (01) ==
LOC: ER 01:49 → 2ND 02:36
PROVIDERS: Admitting Provider Family Medicine; Emergency Provider Student in an Organized Health Care Education/Training Program; PCP Internal Medicine Adolescent Medicine; Visit Provider Internal Medicine Adolescent Medicine
DX: J18.9 Pneumonia, unspecified organism (principal); I25.10 Atherosclerotic heart disease of native coronary artery without angina pectoris; R09.02 Hypoxemia; Z79.01 Long term (current) use of anticoagulants; Z79.899 Other long term (current) drug therapy; Z79.4 Long term (current) use of insulin; F17.210 Nicotine dependence, cigarettes, uncomplicated; E87.6 Hypokalemia
CPT/HCPCS: 36415; 71045; 80048; 80053; 81001; 82803; 82962; 83605; 83735; 84100; 84443; 84484; 85007; 85025; 87040; 87581; 87632; 87636; 87798; 93005; 94640; 97165; 99291; G0378; J0456; J0696

== ENCOUNTER 2023-04-18 16:00 | Outpatient (RCR) | payer MEDICARE, MEDICAID, SELFPAY | END 2023-04-18 17:00 | disposition home or self-care (01) | LOC: PT 16:00 | PROVIDERS: PCP Internal Medicine Adolescent Medicine; Visit Provider Internal Medicine | DX: M79.605 Pain in left leg (principal); S82.202A Unspecified fracture of shaft of left tibia, initial encounter for closed fracture; Z96.698 Presence of other orthopedic joint implants; S82.402A Unspecified fracture of shaft of left fibula, initial encounter for closed fracture | CPT/HCPCS: 97110; 97112; 97116; 97140; 97163; 97164; 97530 ==

== ENCOUNTER 2023-04-18 21:16 | Inpatient (IN) | payer MEDICARE, MEDICAID, SELFPAY ==
[2023-04-18 21:17] VITALS: BP 95/73; PULSE 113; RESP 24; TEMP 36.9; O2SAT 92; BMI 22.9
[2023-04-18 21:31] VITALS: BP 99/49; PULSE 118; RESP 20; O2SAT 88
--- NOTE | 2023-04-18 21:41 | CT_ITS ---
PROCEDURE INFORMATION: Exam: CT Head Without Contrast Exam date and time: 04/18/2023 10:08 PM Age: 58 years old Clinical indication: Altered mental status/memory loss; Additional info: AMS TECHNIQUE: Imaging protocol: Computed tomography of the head without contrast. Radiation optimization: All CT scans at this facility use at least one of these dose optimization techniques: automated exposure control; mA and/or kV adjustment per patient size (includes targeted exams where dose is matched to clinical indication); or iterative reconstruction. REPORTING DATA: Count of CT and Cardiac NM exams in prior 12 months: This patient has received 2 known CTs and 0 known cardiac nuclear medicine studies in the 12 months prior to the current study. COMPARISON: CT HEAD/BRAIN WO CON 12/26/2022 1:29 PM FINDINGS: Brain: There is age related atrophy. No hemorrhage. There is mild periventricular white matter hypodensity consistent with chronic small vessel disease. No mass effect. Cerebral ventricles: No ventriculomegaly. Paranasal sinuses: Visualized sinuses are unremarkable. No fluid levels. Mastoid air cells: Visualized mastoid air cells are well aerated. Orbital cavities: The orbital contents are symmetric and normal. Bones/joints: Unremarkable. No acute fracture. Soft tissues: A left supraorbital skin piercing is noted. IMPRESSION: No acute intracranial finding.
--- NOTE | 2023-04-18 21:41 | XR_ITS ---
PROCEDURE INFORMATION: Exam: XR Chest Exam date and time: 04/18/2023 9:59 PM Age: 58 years old Clinical indication: Condition or disease; Lung condition and disease; Pneumonia; Additional info: Sepsis, pneumonia, AMS TECHNIQUE: Imaging protocol: Radiologic exam of the chest. Views: 1 view. COMPARISON: CR XR CHEST PORTABLE 04/17/2023 2:00 AM FINDINGS: Lungs: There is worsening bilateral diffuse ground-glass and interstitial prominence with more confluent areas of airspace disease in the left mid lung zone and right lung base. Pleural spaces: Unremarkable. No pleural effusion. No pneumothorax. Heart/Mediastinum: Unremarkable. No cardiomegaly. Vasculature: Unremarkable. Bones/joints: Evidence of T4 vertebroplasty. Severe degenerative changes of the left glenohumeral joint are present. IMPRESSION: Worsening bilateral diffuse ground-glass opacities and interstitial prominence with focal areas of airspace disease in the left mid lung zone and right lung base consistent with worsening pneumonia.
--- NOTE | 2023-04-18 21:41 | PC.NURSE ---
attempted to obtain blood glucose, read as hig, provider aware
--- NOTE | 2023-04-18 21:42 | PC.NURSE ---
while asking pt triage questions, pt answers '11,11' to multiple questions, Pt alert to self. provider aware
--- NOTE | 2023-04-18 21:45 | ECG_ITS ---
APPROVED REPORT Exam: Resting ECG HR:115 bpm ECG Measurements Heart Rate 115 AXES ND 116 P 62 QRSd 88 QRS 46 QT 319 T 53 QTc 387 Conclusion SINUS TACHYCARDIA WITH SHORT ND INTERVAL MODERATE ST DEPRESSION [0.05+ mV ST DEPRESSION] ABNORMAL ECG UNCONFIRMED REPORT Electronically signed by : Enoch Alonzo MD 04/20/2023 16:04:50
--- NOTE | 2023-04-18 21:50 | PC.NURSE ---
two unsuccessful attempts to obtain IV. EJ started per Deepika MorenoAnisa ditch tender,
[2023-04-18 21:54] LABS: VBG Base Excess -6.1 mmol/L (-2.4-2.3); VBG HCO3 19.2 mmol/L (23-30); VBG PCO2 34.2 mmol/L (35-51); VBG PH 7.37 mmol/L (7.31-7.41); VBG PO2 75.5 mmol/L (28-40); VBG Total CO2 20.3 mmol/L (23-27)
[2023-04-18 22:00] VITALS: BP 116/46; PULSE 114; RESP 22; O2SAT 92
[2023-04-18 22:01] LABS: Acetone, Serum (Rapid) Small (None Detect); Basophils % 0.1 % (0.1-2.0); Eosinophils % 0.1 % (0.1-12.0); Hematocrit 29.3 % (37.0-47.0); Hemoglobin 8.8 g/dL (12.2-16.2); Lymphocytes # 0.3 K/mm3 (0.7-4.5); Lymphocytes % 1.7 % (10-50); Mean Corpuscular HGB Conc 30.1 g/dL (31.8-35.4); Mean Corpuscular Hemoglobin 27.9 pg (27.0-31.2); Mean Corpuscular Volume 92.8 fl (81-99); Mean Platelet Volume 8.6 fl (7.4-10.4); Monocytes % 6.1 % (1.7-9.3); Neutrophils # 15.2 K/mm3 (1.8-7.8); Platelet Count 517 K/mm3 (142-424); Red Blood Count 3.16 M/mm3 (4.20-5.40); Red Cell Distribution Width 17.1 % (11.5-17.5); White Blood Count 16.5 K/mm3 (4.8-10.8)
[2023-04-18 22:05] LABS: Alanine Aminotransferase 34 U/L (12-78); Albumin Level 2.2 g/dl (3.5-5.0); Albumin/Globulin Ratio 0.8 (1.1-1.8); Alkaline Phosphatase 325 U/L (38-126); Anion Gap 16.5 mEq/L (5-15); Aspartate Amino Transferase 56 U/L (14-36); Bilirubin,Total 0.2 mg/dl (0.2-1.3); Blood Urea Nitrogen 13 mg/dl (7-17); Calcium 7.6 mg/dl (8.4-10.2); Carbon Dioxide 19 mmol/L (22.0-30.0); Chloride 99 mmol/L (98-107); Creatinine Clearance Estimated 86 mL/min (50-200); Estimated Glomerular Filt Rate 73 ml/min (>60); GFR (African American) 89 ML/MIN (>60); Globulin 2.7 g/dL (1.3-3.2); MANUAL DIFFERENTIAL MANUAL DIFFERENTIAL (MANUAL DIFF); Potassium 4.5 mmoL/L (3.5-5.1); Sodium 130 mmol/L (136-145); Total Protein,Serum 4.9 g/dl (6.3-8.2)
[2023-04-18 22:09] LABS: Acetaminophen < 10 ug/ml (10-30); Salicylate < 1.0 mg/dL (2.0-20.0)
[2023-04-18 22:10] LABS: D-Dimer 1.09 ug/mL (0.0-0.5)
[2023-04-18 22:17] LABS: Glucose 686 mg/dl (74-100)
[2023-04-18 22:19] LABS: Troponin I 0.05 ng/ml (0.00-0.034)
[2023-04-18 22:21] LABS: NT Pro Brain Natriuretic Pep. 5780 pg/mL (0-125)
[2023-04-18 22:29] LABS: Lymphocytes % 8 % (10-50); Monocytes % 4 % (2-9); Neutrophils % 88 % (42-76); Total Cells Counted 100
[2023-04-18 22:30] VITALS: BP 114/89; PULSE 62; RESP 22; O2SAT 92
[2023-04-18 22:30] LABS: Platelet Estimate Normal; RBC Morphology Normal
--- NOTE | 2023-04-18 22:41 | PC.NURSE ---
Addendum entered by Mely Willis, EMT 04/18/23 22:46: Dr Martinez wa control panel operator for Dr Alonzo Original Note: Dr Bullard speaking with Dr Alonzo
--- NOTE | 2023-04-18 22:41 | PC.NURSE ---
PATIENT ADMITTED TO 218 STEPDOWN WITH DX OF DKA, SEPSIS AND CHF [facility]
[2023-04-18 22:43] LABS: Microscopic, Urine URINE MICROSCOPIC (MICROSCOPIC)
[2023-04-18 22:44] LABS: Lactate Dehydrogenase 340 U/L (313-618)
[2023-04-18 22:48] LABS: Occult Blood,Stool Positive (Negative)
[2023-04-18 22:51] LABS: Appearance,Urine CLEAR (Clear); Bilirubin,Urine Negative (Negative); Blood, Urine Negative (Negative); Color,Urine YELLOW (Yellow); Glucose,Urine (UA) 3+ (Negative); Ketones,Urine 1+ (Negative); Leukocyte Esterase,Urine Negative (Negative); Nitrate,Urine Negative (Negative); Protein,Urine Negative (Negative); Specific Gravity, Urine 1.015 (1.005-1.030); Urobilinogen,Urine 0.2 EU/dl (0.2)
[2023-04-18 22:56] LABS: Uric Acid 4.9 mg/dl (2.5-6.2)
--- NOTE | 2023-04-18 22:59 | HMH.EDGENADL ---
Discharge Plan Disposition Patient Disposition: Admitted Condition: Fair Clinical Impressions Clinical Impression: DKA (diabetic ketoacidosis), Sepsis, Acute heart failure, Anemia, GI bleed Discharge ED Provider: Malinda Elias General Adult HPI General Chief complaint: Altered Mental Status Stated complaint: hyperglycemic Time Seen by Provider: 04/18/23 21:35 Mode of Arrival: EMS Source of Information: EMS Limitations: No Limitations Description of Symptoms (Recalled from ER Triage Doc. by RN): pt seen here 2 days ago and admitted for hypoglycemia and pneumonia, discharged today, pt now has alt mental status, edema and has high glucose. History of Present Illness HPI narrative: This patient is a 58-year-old female with a history of tobacco use, hypertension, hyperlipidemia, insulin-dependent diabetes, CAD, and sepsis secondary to pneumonia presented to the emergency department for evaluation with concern for altered mental status. EMS brings in the patient reports that her had called because she was altered at home. Fingerstick blood glucose too high to read. Patient has been confused and tachycardic in route. Patient is only alert and oriented to person and place, but not time or situation. Given this, she does not contribute much to history. She denies any concerns or complaints at this time. On medical record review, she was discharged from the hospital today after being admitted for pneumonia. She had been doing well at time of discharge. On medical record review, however, her labs have been trending downward and troponin has been trending upward. Related Data Home Medications Medication Instructions Recorded Confirmed albuterol sulfate 90 mcg/actuation 2 inh inhalation Q6HP PRN 12/26/22 04/18/23 aerosol inhaler Breathing Problems diphenoxylate-atropine 2.5 2 tab PO QIDP PRN IBS 12/26/22 04/18/23 mg-0.025 mg tablet divalproex 500 mg tablet,extended 500 mg PO DAILY Seizure 12/26/22 04/18/23 release 24 hr hydroxyzine pamoate 25 mg capsule 25 mg PO AM Anxiety 12/26/22 04/18/23 levothyroxine 75 mcg tablet 75 mcg PO AM Thyroid 12/26/22 04/18/23 quetiapine 300 mg tablet 300 mg PO HS Mood 12/26/22 04/18/23 temazepam 22.5 mg capsule 22.5 mg PO HSP PRN Insomnia 12/26/22 04/18/23 tizanidine 4 mg tablet 4 mg PO Q6HP PRN Pain 12/26/22 04/18/23 eluxadoline 100 mg tablet (Viberzi) 100 mg PO BID IBS 04/17/23 04/18/23 famotidine 20 mg tablet 20 mg PO BID Acid Reflux 04/17/23 04/18/23 hydroxyzine HCl 25 mg tablet 50 mg PO HS Mood 04/17/23 04/18/23 mirtazapine 15 mg tablet 15 mg PO HS Mood 04/17/23 04/18/23 primidone 250 mg tablet 250 mg PO HS Seizures 04/17/23 04/18/23 prochlorperazine maleate 10 mg 10 mg PO Q8HP PRN Nausea 04/17/23 04/18/23 tablet teriparatide 20 mcg/dose (600 20 mcg SQ DAILY Osteoporosis 04/17/23 04/18/23 mcg/2.4 mL) subcutaneous pen injector (Forteo) azithromycin 250 mg tablet 250 mg PO DIRECTED Infection 04/18/23 04/18/23 cefdinir 300 mg capsule 300 mg PO BID Infection 04/18/23 04/18/23 insulin lispro 100 unit/mL 15 unit SQ TID Diabetes 04/18/23 04/18/23 subcutaneous solution (Humalog U-100 Insulin) Previous Rx's Medication Instructions Recorded ticagrelor 90 mg tablet (Brilinta) 90 mg PO BID Blood thinner #60 tabs 03/14/23 atorvastatin 40 mg tablet 40 mg PO HS Cholesterol #30 tabs 03/27/23 Allergies Allergy/AdvReac Type Severity Reaction Status Date / Time clindamycin Allergy Verified 04/05/23 09:38 [facility] Disclaimer: The information contained in this section may have been updated after the patient was seen, as this information can be updated by other users. Medical History CAD (coronary atherosclerotic disease) Cellulitis Diabetes Diabetes mellitus Diastolic dysfunction Hyperlipidemia Hypertension Insulin pump in place Mood disorder Thyroid disease Tobacco dependence syndrome Surgical History (
[2023-04-18 23:08] VITALS: BP 103/44; PULSE 112; RESP 22; TEMP 36.9; O2SAT 92
--- NOTE | 2023-04-18 23:10 | PC.NURSE ---
Report called to Jeri Whipple RN. Awaiting transport for patient to [id number]
[2023-04-18 23:11] LABS: Amphetamine/Metha Screen,Urine Negative ng/ml (<1000); Barbiturates Screen,Urine Positive ng/ml (<200)
[2023-04-18 23:12] LABS: Benzodiazepines Screen,Urine Negative ng/ml (<200)
[2023-04-18 23:13] LABS: Cannabinoid Screen,Urine Negative ng/ml (<50); Cocaine Screen,Urine Negative ng/ml (<300)
[2023-04-18 23:14] LABS: Methadone Screen,Urine Negative ng/ml (<300)
[2023-04-18 23:15] LABS: Opiate Screen,Urine Negative ng/ml (<300); Phencyclidine Screen,Urine Negative ng/ml (<25)
[2023-04-18 23:28] LABS: RBC,Urine Occasional #/hpf (0-3); Squamous Epithelial Cell,Urine Occasional #/hpf (0-5)
--- NOTE | 2023-04-18 23:34 | PC.NURSE ---
Patient arrived to floor via stretcher at 23:34.
[2023-04-18 23:43] LABS: Glucose,Random 715 mg/dL (74-100)
[2023-04-19] VITALS (17 sets, daily range): BP systolic 102–154; BP diastolic 36–91; PULSE 80–120; RESP 16–24; TEMP 36.4–37.9; O2SAT 88–100; BMI 22.1; BMI 23.9
[2023-04-19 00:46] LABS: Chloride 103 mmol/L (98-107); Potassium 4.8 mmoL/L (3.5-5.1); Sodium 133 mmol/L (136-145)
[2023-04-19 00:47] LABS: Acetone, Serum (Rapid) Small (None Detect)
[2023-04-19 00:49] LABS: Anion Gap 18.8 mEq/L (5-15); Blood Urea Nitrogen 14 mg/dl (7-17); Calcium 7.6 mg/dl (8.4-10.2); Carbon Dioxide 16 mmol/L (22.0-30.0); Creatinine Clearance Estimated 83 mL/min (50-200); Estimated Glomerular Filt Rate 73 ml/min (>60); GFR (African American) 89 ML/MIN (>60)
[2023-04-19 01:01] LABS: Troponin I 0.09 ng/ml (0.00-0.034)
[2023-04-19 01:44] LABS: Glucose 676 mg/dl (74-100)
[2023-04-19 01:53] LABS: Reflex Lactic Add Lactic Reflex
[2023-04-19 02:03] LABS: Basophils % 0.1 % (0.1-2.0); Eosinophils % 0.1 % (0.1-12.0); Hematocrit 26.8 % (37.0-47.0); Hemoglobin 8.3 g/dL (12.2-16.2); Lymphocytes # 1.1 K/mm3 (0.7-4.5); Lymphocytes % 7.5 % (10-50); Mean Corpuscular HGB Conc 30.9 g/dL (31.8-35.4); Mean Corpuscular Hemoglobin 28.1 pg (27.0-31.2); Monocytes # 1.1 K/mm3 (0.1-1.0); Neutrophils # 12.8 K/mm3 (1.8-7.8); Neutrophils % 85.3 % (37.0-80.0); Platelet Count 492 K/mm3 (142-424); Red Blood Count 2.94 M/mm3 (4.20-5.40)
[2023-04-19 02:25] LABS: Glucose,Random 483 mg/dL (74-100); Lactic Acid Follow Up (RFLX 1) 3.7 mmol/L (0.7-2.1)
[2023-04-19 04:06] LABS: Reflex Lactic (2 hrs) Add Lactic Reflex
[2023-04-19 05:19] LABS: POC Glucose,Bedside 242 (70-110)
[2023-04-19 05:19] LABS: POC Glucose,Bedside 443 (70-110)
[2023-04-19 05:19] LABS: POC Glucose,Bedside 312 (70-110)
[2023-04-19 05:34] LABS: Lactic Acid Follow up (RFLX 2) 3.3 mmol/L (0.7-2.1)
[2023-04-19 05:36] LABS: Chloride 108 mmol/L (98-107)
[2023-04-19 05:37] LABS: Sodium 139 mmol/L (136-145)
[2023-04-19 05:40] LABS: Blood Urea Nitrogen 12 mg/dl (7-17); Calcium 7.7 mg/dl (8.4-10.2); Carbon Dioxide 21 mmol/L (22.0-30.0); Creatinine Clearance Estimated 89 mL/min (50-200); Estimated Glomerular Filt Rate 73 ml/min (>60); GFR (African American) 89 ML/MIN (>60); Glucose 160 mg/dl (74-100)
[2023-04-19 05:53] LABS: Troponin I 0.31 ng/ml (0.00-0.034)
[2023-04-19 06:29] LABS: POC Glucose,Bedside 153 (70-110)
[2023-04-19 06:29] LABS: POC Glucose,Bedside 72 (70-110)
[2023-04-19 06:57] LABS: POC Glucose,Bedside 53 (70-110)
--- NOTE | 2023-04-19 07:10 | HMH.PHAINT1 ---
Pharmacy Intervention Comments: Medication history complete, medications verified with fill history and discharge summary from 04/18/23. - Leonie Magallon, PharmD Candidate 2023
--- NOTE | 2023-04-19 07:31 | PC.NURSE ---
04/18: new admit; insulin gtt @ 7.3 units/hr 2345: insulin gtt 7.3units/hr to 10.5units/hr 04/19: @0145 insulin gtt 10.5 units/hr to 16 units/hr @0230 insulin gtt 16 units/hr to 24 units/hr
--- NOTE | 2023-04-19 07:33 | PC.NURSE ---
@ [phone] this RN turned off insulin gtt
--- NOTE | 2023-04-19 07:40 | PC.NURSE ---
Dr. Alonzo made aware of troponin of 0.31
--- NOTE | 2023-04-19 07:55 | PC.NURSE ---
Dr. Alonzo notified by housekeeping/laundry supervisor HERBIE Menjivar of FSBS of 16, D50 given per protocol, recheck at [phone], [phone]- [phone], [phone]
--- NOTE | 2023-04-19 07:55 | PC.NURSE ---
Dr. Alonzo notified of FSBS of 16, D50 given per protocol, recheck at
--- NOTE | 2023-04-19 07:57 | EXP.PHA.CONS ---
Pharmacy Consult Date: 04/19/23 Time: 07:57 Referring provider: DR. CAGE Reason for Consult:: VANCOMYCIN DOSING Allergies Allergy/AdvReac Type Severity Reaction Status Date / Time clindamycin Allergy Verified 04/05/23 09:38 Home Medications Medication Instructions Recorded Confirmed Type albuterol sulfate 90 mcg/actuation 2 inh inhalation Q6HP PRN 12/26/22 04/18/23 History aerosol inhaler Breathing Problems diphenoxylate-atropine 2.5 2 tab PO QIDP PRN IBS 12/26/22 04/18/23 History mg-0.025 mg tablet divalproex 500 mg tablet,extended 500 mg PO DAILY Seizure 12/26/22 04/18/23 History release 24 hr hydroxyzine pamoate 25 mg capsule 25 mg PO AM Anxiety 12/26/22 04/18/23 History levothyroxine 75 mcg tablet 75 mcg PO AM Thyroid 12/26/22 04/18/23 History quetiapine 300 mg tablet 300 mg PO HS Mood 12/26/22 04/18/23 History temazepam 22.5 mg capsule 22.5 mg PO HSP PRN Insomnia 12/26/22 04/18/23 History tizanidine 4 mg tablet 4 mg PO Q6HP PRN Pain 12/26/22 04/18/23 History ticagrelor 90 mg tablet (Brilinta) 90 mg PO BID Blood thinner #60 tabs 03/14/23 04/18/23 Rx atorvastatin 40 mg tablet 40 mg PO HS Cholesterol #30 tabs 03/27/23 04/18/23 Rx eluxadoline 100 mg tablet (Viberzi) 100 mg PO BID IBS 04/17/23 04/18/23 History famotidine 20 mg tablet 20 mg PO BID Acid Reflux 04/17/23 04/18/23 History hydroxyzine HCl 25 mg tablet 50 mg PO HS Mood 04/17/23 04/18/23 History mirtazapine 15 mg tablet 15 mg PO HS Mood 04/17/23 04/18/23 History primidone 250 mg tablet 250 mg PO HS Seizures 04/17/23 04/18/23 History prochlorperazine maleate 10 mg 10 mg PO Q8HP PRN Nausea 04/17/23 04/18/23 History tablet teriparatide 20 mcg/dose (600 20 mcg SQ DAILY Osteoporosis 04/17/23 04/18/23 History mcg/2.4 mL) subcutaneous pen injector (Forteo) azithromycin 250 mg tablet 250 mg PO DIRECTED Infection 04/18/23 04/18/23 History cefdinir 300 mg capsule 300 mg PO BID Infection 04/18/23 04/18/23 History insulin lispro 100 unit/mL 15 unit SQ TID Diabetes 04/18/23 04/18/23 History subcutaneous solution (Humalog U-100 Insulin) New Prescriptions to Start Prescriptions: Height: 1.78 m Weight: 75.75 kg Laboratory Results:: Laboratory Results - last 24 hr 04/18/23 21:38: WBC 16.5 H D, RBC 3.16 L, Hgb 8.8 L, Hct 29.3 L, MCV 92.8, MCH 27.9, MCHC 30.1 L, RDW 17.1, Plt Count 517 H, MPV 8.6, Neut % (Auto) 92.0 H, Lymph % (Auto) 1.7 L, [place] % (Auto) 6.1, Eos % (Auto) 0.1, Baso % (Auto) 0.1, Neut # (Auto) 15.2 H, Lymph # (Auto) 0.3 L, [place] # (Auto) 1.0, Eos # (Auto) 0.0, Baso # (Auto) 0.0, Total Counted 100, Neutrophils % (Manual) 88 H, Lymphocytes % (Manual) 8 L, Monocytes % (Manual) 4, Platelet Estimate Normal, RBC Morphology Normal, D-Dimer 1.09 H, Sodium 130 L, Potassium 4.5 D, Chloride 99, Carbon Dioxide 19 L, Anion Gap 16.5 H, BUN 13 D, Creatinine 0.80 D, Estimated Creat Clear 86, Estimated GFR 73, Est GFR ( Amer) 89 D, Glucose 686 H* D, Lactate 4.0 H, Uric Acid 4.9, Calcium 7.6 L, Total Bilirubin 0.2, AST 56 H, ALT 34, Alkaline Phosphatase 325 H, Lactate Dehydrogenase 340, Troponin I 0.05 H, NT-Pro-B Natriuret Pep 5780 H, Total Protein 4.9 L, Albumin 2.2 L, Globulin 2.7, Albumin/Globulin Ratio 0.8 L, Salicylates < 1.0 L, Acetaminophen < 10 L, Acetone Level Small 04/18/23 21:41: VBG pH 7.37, VBG pCO2 34.2 L, VBG pO2 75.5 H, VBG HCO3 19.2 L, VBG Total CO2 20.3 L, VBG O2 Saturation 94.0 H, VBG Base Excess -6.1 L 04/18/23 22:30: Urine Color Yellow, Urine Appearance Clear, Urine pH 6.0, Ur Specific [place] 1.015, Urine Protein Negative, Urine Glucose (UA) 3+, Urine Ketones 1+, Urine Blood Negative, Urine Nitrate Negative, Urine Bilirubin Negative, Urine Urobilinogen 0.2, Ur Leukocyte Esterase Negative, Urine RBC Occasional, Urine WBC 5-10, Ur Squamous Epith Cells Occasional, Urine Bacteria None, Stool Occult Blood Positive A, Urine Opiates Screen Negative, Urine Methadone Screen Negative, Ur Barbituates Screen Positive H, Ur Phencyclidine Scrn Neg
--- NOTE | 2023-04-19 08:25 | EXP.HP ---
History of Present Illness *Admission Date: 04/19/23 *Reason for visit:: Hyperglycemia/DKA *History of present illness: 58-year-old female who was discharged from the hospital yesterday. She had been admitted for bilateral pneumonia, determined to be probable viral but sent home on cefdinir and azithromycin after she was feeling better, no oxygen requirement and eating well. Her course in the hospital was complicated with some up-and-down glucose levels. She had presented with hypoglycemia in the ER and her insulin infusion device had been discontinued. She had been on sliding scale in the hospital and doing fairly well, and her endocrinology folks at had recommended when they called my office yesterday to discharge her home on Humalog and Lantus and not restart her pump device. This was done. I did send her prescriptions for Humalog to [facility] and the patient tells me that when she arrived at [facility] yesterday afternoon they told her they were out of the insulin. As a result she did not get the prescription. She went home and ate and then became very somnolent. Her fianc? checked her sugar repeatedly and it became very high. She was unable to treat this with insulin at home obviously and then came to the ER. In the ER she was found to have DKA with mild acetone levels in her serum, hyperglycemia and dehydration evident along with hypokalemia and was admitted with IV insulin, and placed on vancomycin and Zosyn for sepsis. [facility] Disclaimer: The information contained in this section may have been updated after the patient was seen, as this information can be updated by other users. Medical History CAD (coronary atherosclerotic disease) Cellulitis Diabetes Diabetes mellitus Diastolic dysfunction Hyperlipidemia Hypertension Insulin pump in place Mood disorder Thyroid disease Tobacco dependence syndrome Surgical History H/O section H/O knee surgery Stented coronary artery Family History Other No significant family history Social History (Updated 04/19/23 @ 00:30 by Tania Morfin RN) Smoking Status: Unknown if ever smoked alcohol intake: never current occupational status: other Travel in the last 8 weeks: None Meds Home Medications and Allergies Home Medications Medication Instructions Recorded Confirmed Type albuterol sulfate 90 mcg/actuation 2 inh inhalation Q6HP PRN 12/26/22 04/18/23 History aerosol inhaler Breathing Problems diphenoxylate-atropine 2.5 2 tab PO QIDP PRN IBS 12/26/22 04/18/23 History mg-0.025 mg tablet divalproex 500 mg tablet,extended 500 mg PO DAILY Seizure 12/26/22 04/18/23 History release 24 hr hydroxyzine pamoate 25 mg capsule 25 mg PO AM Anxiety 12/26/22 04/18/23 History levothyroxine 75 mcg tablet 75 mcg PO AM Thyroid 12/26/22 04/18/23 History quetiapine 300 mg tablet 300 mg PO HS Mood 12/26/22 04/18/23 History temazepam 22.5 mg capsule 22.5 mg PO HSP PRN Insomnia 12/26/22 04/18/23 History tizanidine 4 mg tablet 4 mg PO Q6HP PRN Pain 12/26/22 04/18/23 History ticagrelor 90 mg tablet (Brilinta) 90 mg PO BID Blood thinner #60 tabs 03/14/23 04/18/23 Rx atorvastatin 40 mg tablet 40 mg PO HS Cholesterol #30 tabs 03/27/23 04/18/23 Rx eluxadoline 100 mg tablet (Viberzi) 100 mg PO BID IBS 04/17/23 04/18/23 History famotidine 20 mg tablet 20 mg PO BID Acid Reflux 04/17/23 04/18/23 History hydroxyzine HCl 25 mg tablet 50 mg PO HS Mood 04/17/23 04/18/23 History mirtazapine 15 mg tablet 15 mg PO HS Mood 04/17/23 04/18/23 History primidone 250 mg tablet 250 mg PO HS Seizures 04/17/23 04/18/23 History prochlorperazine maleate 10 mg 10 mg PO Q8HP PRN Nausea 04/17/23 04/18/23 History tablet teriparatide 20 mcg/dose (600 20 mcg SQ DAILY Osteoporosis 04/17/23 04/18/23 History mcg/2.4 mL) subcutaneous pen inje
--- NOTE | 2023-04-19 08:30 | CA_ITS ---
APPROVED REPORT EXAM: Comprehensive 2D, Doppler, and color-flow Echocardiogram [employer] Sales Representative: Pamela Enrique RVT Ht: 5 ft 10 in Wt: 167lbs BSA: 1.93 BP: 138/47 mmHg Indications: CHF,DM,SMOKER,CAD,HTN,HLD,DKA BEST EXAM POSSIBLE-UNABLE TO FINISH EXAM R/T PT WANTING TECH TO STOP 2D Dimensions LVOT 1.91 cm (M/F) 1.5-2.5 LA Volume 54.60 mL LA Volume Index 28.14 mL/m2 (M/F) 16-34 M-Mode Dimensions RVDd 1.46 cm (0.9-2.6) LA Diam 3.14 cm (1.9-4.0) LVDd 4.07 cm (3.5-5.7) Ao Diam 2.66 cm (2.0-3.7) LVDs 2.75 cm (3.5-5.7) IVSd 0.64 cm (0.6-1.1) PWd 0.82 cm (0.6-1.1) EF (Teich) 61.20% FS 32.40% EDV (Teich) 72.90 mL ESV (Teich) 28.30 mL LV Diastology E Decel Time 177.00 (160-240 msec) E/A Ratio 0.9 MED E' 6.20 (< 7 cm/sec) E'/MED E' Ratio 18.45 (>14) LAT E' 6.60 (<10 cm/sec) E/LAT E' Ratio 17.33 (>14) Aortic Valve AO Peak GR. 3.70 mmHg Mitral Valve MV E Max Quan. 114.00 (40-130 cm/s) MV A Velocity 123.00 (40-130 cm/s) E/A Ratio 0.93 MV Decel. Time 177.00 (160-240 ms) MV PHT 52.00 ms Pulmonary Valve PV Peak Velocity 90.00 (50-150 cm/s) Tricuspid Valve TR P. Velocity 245.00 cm/s RAP Estimate 10.00 mmHg RVSP 34.10 mmHg Left Ventricle The left ventricle is normal size. The left ventricular systolic function is normal. The left ventricular ejection fraction is within the normal range. There is normal left ventricular wall thickness. There is normal LV segmental wall motion. Diastolic function is indeterminate. LVEF is 60%. Right Ventricle The right ventricle is normal size. The right ventricular systolic function is normal. Atria The left atrium size is normal. The right atrium size is normal. The interatrial septum is not well visualized. Aortic Valve The aortic valve is mildly thickened. There is no aortic valvular stenosis. Mild aortic regurgitation. Mitral Valve The mitral valve is normal in structure. No evidence of mitral valve stenosis. Trace mitral regurgitation. Tricuspid Valve The tricuspid valve leaflets are thin and pliable. Trace tricuspid regurgitation. There is insufficient TR jet to estimate RVSP. Pulmonic Valve The pulmonary valve is normal in structure. Trace pulmonic regurgitation. Great Vessels The aortic root is normal in size. The ascending aorta is normal in size. IVC is normal in size and collapses >50% with inspiration. Pericardium There is no pericardial effusion. Other Information Study Quality: Technically Difficult Conclusion This was a technically difficult study due to poor accoustic windows. Normal biventricular systolic function. Mild AI Electronically signed by : Allie Zavaleta, 04/23/2023 17:19:33
[2023-04-19 08:38] LABS: Glucose,Random 216 mg/dL (74-100)
[2023-04-19 08:59] LABS: POC Glucose,Bedside 150 (70-110)
[2023-04-19 09:48] LABS: Acetone, Serum (Rapid) None Detected (None Detect)
[2023-04-19 09:49] LABS: Chloride 109 mmol/L (98-107); Sodium 139 mmol/L (136-145)
[2023-04-19 09:52] LABS: Anion Gap 7.7 mEq/L (5-15); Blood Urea Nitrogen 12 mg/dl (7-17); Calcium 7.7 mg/dl (8.4-10.2); Carbon Dioxide 25 mmol/L (22.0-30.0); Creatinine Clearance Estimated 89 mL/min (50-200); Estimated Glomerular Filt Rate 73 ml/min (>60); GFR (African American) 89 ML/MIN (>60); Glucose 218 mg/dl (74-100)
[2023-04-19 10:03] LABS: Potassium 2.7 mmoL/L (3.5-5.1)
--- NOTE | 2023-04-19 10:12 | PC.NURSE ---
notified Dr. Alonzo of critical K+ of 2.7, no new orders received, also notified him of no acetone detected, stated to switch to NS at 150 mL/hr and D/C serum acetone checks and Q4 BMP
[2023-04-19 11:48] LABS: POC Glucose,Bedside 127 (70-110)
[2023-04-19 13:13] LABS: Glucose,Random < 20 mg/dL (74-100)
--- NOTE | 2023-04-19 13:15 | PC.NURSE ---
approx 1225 fsbs on r thumb with result of 46. fsbs on l thumb was 46. notified primary RN Angel Smith face to face 1316 fsbs on left ring finger was 94 & 104. (2 different glucometers used per request of lab to verify results)
[2023-04-19 13:20] LABS: POC Glucose,Bedside 94 (70-110)
[2023-04-19 14:13] LABS: Coronavirus 19, PCR Not Detected (NotDetected); Influenza A, PCR Not Detected (NotDetected); Influenza B, PCR Not Detected (NotDetected)
[2023-04-19 14:13] LABS: POC Glucose,Bedside 63 (70-110)
[2023-04-19 16:09] LABS: POC Glucose,Bedside 104 (70-110)
[2023-04-19 16:38] LABS: Anion Gap 8.7 mEq/L (5-15); Blood Urea Nitrogen 9 mg/dl (7-17); Calcium 7.6 mg/dl (8.4-10.2); Carbon Dioxide 27 mmol/L (22.0-30.0); Chloride 108 mmol/L (98-107); Creatinine Clearance Estimated 89 mL/min (50-200); Estimated Glomerular Filt Rate 73 ml/min (>60); GFR (African American) 89 ML/MIN (>60); Glucose 95 mg/dl (74-100); Potassium 3.7 mmoL/L (3.5-5.1); Sodium 140 mmol/L (136-145)
[2023-04-19 17:18] LABS: POC Glucose,Bedside 135 (70-110)
--- NOTE | 2023-04-19 17:43 | PC.NURSE ---
per Dr. Alonzo, ok to check FSBS Q2, put in serum acetone for AM labs
[2023-04-19 18:06] LABS: POC Glucose,Bedside 78 (70-110)
--- NOTE | 2023-04-19 18:14 | PC.NURSE ---
pt has remained A&Ox4 t/o shift, FSBS have fluctuated t/o shift, pt has been refusing meals, remains on 2L NC with O2 sats 91-100, no complaints of pain or SOA
[2023-04-19 18:38] LABS: POC Glucose,Bedside 96 (70-110)
[2023-04-19 19:09] LABS: POC Glucose,Bedside 102 (70-110)
[2023-04-19 20:27] LABS: POC Glucose,Bedside 156 (70-110)
[2023-04-19 22:50] LABS: POC Glucose,Bedside 276 (70-110)
[2023-04-20] VITALS (13 sets, daily range): BP systolic 105–147; BP diastolic 44–73; PULSE 107–130; RESP 20–36; TEMP 36.8–37.6; O2SAT 72–100; BMI 23.4
[2023-04-20 02:59] LABS: POC Glucose,Bedside 487 (70-110)
--- NOTE | 2023-04-20 03:27 | PC.NURSE ---
0255 Patient BGL checked as a routine check since they had been fluctuating on prior shift, and climbing throughout this shift. Noted to be 487, patient breathing rapidly and confused stating she feels weird. Dr. Morfin paged and order for 15 units of Humalog one time given, and order to d/c IVF at this time.
[2023-04-20 04:20] LABS: POC Glucose,Bedside 455 (70-110)
[2023-04-20 06:09] LABS: Basophils % 0.1 % (0.1-2.0); Eosinophils % 0.1 % (0.1-12.0); Hematocrit 28.6 % (37.0-47.0); Hemoglobin 8.3 g/dL (12.2-16.2); Lymphocytes # 0.7 K/mm3 (0.7-4.5); Lymphocytes % 3.7 % (10-50); Mean Corpuscular HGB Conc 29.2 g/dL (31.8-35.4); Mean Corpuscular Hemoglobin 27.2 pg (27.0-31.2); Mean Corpuscular Volume 93.1 fl (81-99); Mean Platelet Volume 8.2 fl (7.4-10.4); Monocytes # 0.9 K/mm3 (0.1-1.0); Monocytes % 4.6 % (1.7-9.3); Neutrophils # 17.4 K/mm3 (1.8-7.8); Neutrophils % 91.5 % (37.0-80.0); Platelet Count 522 K/mm3 (142-424); Red Blood Count 3.07 M/mm3 (4.20-5.40); Red Cell Distribution Width 17.4 % (11.5-17.5)
[2023-04-20 06:12] LABS: MANUAL DIFFERENTIAL MANUAL DIFFERENTIAL (MANUAL DIFF)
[2023-04-20 06:18] LABS: Acetone, Serum (Rapid) None Detected (None Detect)
[2023-04-20 06:20] LABS: Anion Gap 13.9 mEq/L (5-15); Blood Urea Nitrogen 12 mg/dl (7-17); Calcium 7.7 mg/dl (8.4-10.2); Carbon Dioxide 19 mmol/L (22.0-30.0); Chloride 111 mmol/L (98-107); Creatinine Clearance Estimated 88 mL/min (50-200); Estimated Glomerular Filt Rate 73 ml/min (>60); GFR (African American) 89 ML/MIN (>60); Glucose 285 mg/dl (74-100); Potassium 3.9 mmoL/L (3.5-5.1); Sodium 140 mmol/L (136-145)
[2023-04-20 07:43] LABS: Lymphocytes % 12 % (10-50); Monocytes % 1 % (2-9); Neutrophils % 87 % (42-76); Nucleated Red Blood Cells 2; Total Cells Counted 100
[2023-04-20 07:44] LABS: Platelet Estimate Clumped; RBC Morphology Normal
--- NOTE | 2023-04-20 08:36 | EXP.ACUTE.PN ---
Subjective *Date: 04/20/23 *Time: 08:36 Interval history: Overnight patient has been relatively stable. Echocardiogram done yesterday is pending results. Patient had been slightly tachycardic overnight but has been alert. D5 infusion was stopped through the night because of persistent hyperglycemia. This morning she feels a little bit nauseated and does not really want to eat much but otherwise has no pains and feels like her breathing is better. Medical Exam Vital signs and Labs for Last 24 Hours: Vital Signs Temp Pulse Pulse Resp BP Pulse Ox O2 Del Method 04/20/23 08:00 98.3 F 117 H 25 H 125/64 100 Nasal Cannula 04/20/23 06:36 Nasal Cannula 04/20/23 04:00 130 H 04/20/23 00:00 120 H 04/20/23 05:00 Nasal Cannula 04/20/23 04:00 99.6 F 130 H 24 117/46 L 94 L Nasal Cannula 04/20/23 04:00 130 H 30 H 117/46 L 94 L Nasal Cannula 04/19/23 20:00 100 H 04/20/23 03:00 Nasal Cannula 04/20/23 01:00 Nasal Cannula 04/20/23 00:00 99.6 F 124 H 22 105/44 L 96 Nasal Cannula 04/19/23 23:00 Nasal Cannula 04/19/23 21:00 Nasal Cannula 04/19/23 20:00 97 Nasal Cannula 04/19/23 20:00 98.8 F 114 H 22 154/76 H 93 L Nasal Cannula 04/19/23 18:39 Nasal Cannula 04/19/23 16:00 90 04/19/23 17:00 106 H 20 139/91 H 92 L Nasal Cannula 04/19/23 16:00 100 H 20 140/72 93 L Nasal Cannula 04/19/23 15:00 92 H 20 148/74 H 95 Nasal Cannula 04/19/23 14:00 89 22 152/55 H 92 L Nasal Cannula 04/19/23 16:00 100 H 93 L Nasal Cannula 04/19/23 17:00 Nasal Cannula 04/19/23 15:00 Nasal Cannula 04/19/23 15:53 97.6 F 04/19/23 12:00 80 04/19/23 13:00 Nasal Cannula 04/19/23 13:00 97 H 141/78 H 100 Nasal Cannula 04/19/23 12:00 80 149/78 H 92 L Nasal Cannula 04/19/23 11:00 Nasal Cannula 04/19/23 09:00 Nasal Cannula 04/19/23 11:42 97.6 F 93 H 18 132/77 93 L 04/19/23 11:00 91 H 24 146/66 H 92 L Nasal Cannula 04/19/23 10:00 105 H 19 136/36 L 91 L Nasal Cannula O2 Flow Rate 04/20/23 08:00 2.5 04/20/23 06:36 2 04/20/23 04:00 04/20/23 00:00 04/20/23 05:00 2 04/20/23 04:00 2 04/20/23 04:00 2 04/19/23 20:00 04/20/23 03:00 2 04/20/23 01:00 2 04/20/23 00:00 2 04/19/23 23:00 2 04/19/23 21:00 2 04/19/23 20:00 2 04/19/23 20:00 2 04/19/23 18:39 2 04/19/23 16:00 04/19/23 17:00 2 04/19/23 16:00 2 04/19/23 15:00 2 04/19/23 14:00 2 04/19/23 16:00 2 04/19/23 17:00 2 04/19/23 15:00 2 04/19/23 15:53 04/19/23 12:00 04/19/23 13:00 2 04/19/23 13:00 2 04/19/23 12:00 2 04/19/23 11:00 2 04/19/23 09:00 2 04/19/23 11:42 04/19/23 11:00 2 04/19/23 10:00 2 Intake and Output 04/19/23 04/20/23 04/20/23 19:59 03:59 11:59 Intake Total 1882 / 3341 1459 / 3341 0 / 3341 Output Total 0 / 560 60 / 560 500 / 560 Balance 1882 / 2781 1399 / 2781 -500 / 2781 Intake: Intake, Oral Amount 440 / 440 0 / 440 Intake, Total IV Amount 1882 / 2901 1019 / 2901 Azithromycin 500 mg In 0.9 % 250 / 250 Sodium Chloride 250 ml @ 250 mls/hr IV Q24H [facility] Rx#:[id number] Calcium Gluconate 2,000 mg In 0 120 / 120 .9 % Sodium Chloride 100 ml @ 60 mls/hr IV ONCE ONE Rx#: [id number] Ceftriaxone 1 gm 1 gm In 0.9 % 50 / 50 Sodium Chloride 50 ml @ 100 mls /hr IV Q24H [facility] Rx#:[id number] D5W/0.9% NaCl w/20mEq KCL 1,000 988 / 1912 924 / 1912 ml @ 200 mls/hr IV .Q5H [facility] Rx #:[id number] Pantoprazole Sodium 80 mg In 0. 124 / 219 95 / 219 9 % Sodium Chloride 100 ml @ 10 mls/hr IV .Q10H [facility] Rx#: [id number] Vancomycin/Water For Inj (Peg) 350 / 350 1.75 gm In 350 ml @ 175 mls/hr IV Q18H [facility] Rx#:[id number] Output: Output, Urine Amount 0 / 560 60 / 560 500 / 560 Other: Number of Unmeasur
[2023-04-20 10:31] LABS: POC Glucose,Bedside 84 (70-110)
[2023-04-20 10:39] LABS: Glucose,Random 56 mg/dL (74-100)
--- NOTE | 2023-04-20 10:41 | HMH.OTEV ---
OT Inpatient Evaluation Rehab OT IP Evaluation Start: 04/20/23 08:40 Freq: ONCE Status: Active Protocol: Document 04/20/23 10:32 MIGUEL (Rec: 04/20/23 10:41 MIGUEL [id number]) Rehab OT IP Assessment Subjective History 58-year-old female who was discharged from the hospital yesterday. She had been admitted for bilateral pneumonia, determined to be probable viral but sent home on cefdinir and azithromycin after she was feeling better, no oxygen requirement and eating well. Her course in the hospital was complicated with some up-and- down glucose levels. She had presented with hypoglycemia in the ER and her insulin infusion device had been discontinued. She had been on sliding scale in the hospital and doing fairly well, and her endocrinology folks at had recommended when they called my office yesterday to discharge her home on Humalog and Lantus and not restart her pump device. This was done. I did send her prescriptions for Humalog to [facility] and the patient tells me that when she arrived at [facility] yesterday afternoon they told her they were out of the insulin. As a result she did not get the prescription. She went home and ate and then became very somnolent. Her fianc? checked her sugar repeatedly and it became very high. She was unable to treat this with insulin at home obviously and then came to the ER. In the ER she was found to have DKA with mild acetone levels in her serum, hyperglycemia and dehydration evident along with hyp
--- NOTE | 2023-04-20 10:54 | SW/DCPLANNER ---
Addendum entered by [facility] 04/25/23 08:09: The plan for this patient is to discharge to [facility] level of care today. Addendum entered by [facility] 04/24/23 14:24: Patient is approved for SNF level of care tomorrow per Dave blum/ [facility]. I have updated patient and MD. Addendum entered by [facility] 04/24/23 11:33: Updated patient information has been faxed to [facility]. Addendum entered by [facility] 04/23/23 14:12: After patient and S.O. discussion the decision was made by the patient to further explore placement options. Patient is now interested in placement at [facility] due to S.O. expressing that he does not feel able to care for her at home at this time. Patient information has been faxed to [facility]. I have updated MD. Addendum entered by [facility] 04/23/23 10:00: PT/OT is stating that patient continues to need placement at time of discharge. I spoke w/ patient again this AM regarding placement: patient is adamant to return home and is not interested in placement. I will follow up w/ Roselyn at [facility] once information/order is reviewed. Addendum entered by [facility] 04/23/23 07:55: Patient is now requesting to discharge home once medically stable for discharge. Patient does have PICC line and will require one week of IV Dapto at time of discharge. I discussed this w/ patient this AM: agreeable to discharge home w/ IV Dapto (information will be faxed to [facility] this AM), home health w/ [facility] and home O2 w/ [facility]. Patient stated that she does feel comfortable to return home w/ S.O. and does NOT want placement. I will work on setting up home IV medication and home health today w/ expected discharge of later today or tomorrow per Dr Alonzo. Addendum entered by [facility] 04/20/23 14:22: Malinda w/ [facility] can accept this patient once medically stable for discharge. Malinda will start precert today on this patient. Addendum entered by [facility] 04/20/23 13:38: Per patient's request: information has been faxed to Malinda blum/ [facility]. Addendum entered by Flor Cai 04/20/23 13:12: Mirian w/ [facility] stated that she does not have any female beds at this time. Shayy w/ [facility] stated that patient does not have out of network benefits. I will speak w/ patient and her significant other regarding other facilities. Original Note: I spoke with this patient regarding plans once medically stable for discharge. PT/OT evaluated patient and recommended SNF level of care. Patient was alert and oriented during my conversation this AM regarding discharge plans. Patient stated that she resides at home w/ family. Patient also understood the need for placement and is agreeable for information to be faxed to [facility] and [facility]. I will fax information to both facilities this AM and follow up once information is reviewed. Discharge date is unknown at this time.
[2023-04-20 11:01] LABS: Vancomycin,Trough 18.1 ug/mL (5.0-10.0)
--- NOTE | 2023-04-20 12:17 | XR_ITS ---
FINAL REPORT CLINICAL HISTORY: Confirm PICC line placement COMPARISON: 04/18/2023 FINDINGS: SINGLE-VIEW CHEST The heart size is normal. The mediastinum is normal. There are worsening bilateral pulmonary opacities, may represent edema or bilateral pneumonia. Right PICC line tip appears to be coiled in the lower SVC. There is no pneumothorax. IMPRESSION: Right PICC line tip is coiled in the lower SVC. Patient's nurse Alondra Hinson was notified of findings on 04/20/2023 at 1:11 p.m. Worsening pulmonary opacities. Reviewed, Interpreted and Dictated by Mg Perez III, MD Transcribed by Cheryl Salcido Authenticated and [facility]
--- NOTE | 2023-04-20 12:21 | HMH.PTEV ---
Physical Therapy Evaluation Rehab PT IP Evaluation Start: 04/20/23 08:40 Freq: ONCE Status: Active Protocol: Document 04/20/23 10:50 SAMANTHAARIC (Rec: 04/20/23 12:21 GUILLAUME [id number]) Subjective/History History History Pt is a 58 year old female that was discharged from the hospital on 04/18/2023. Pt was admitted for bilateral pneumonia, determined to be viral and was sent home on cefdinir and azithromycin after she was feeling better. Pt did not required oxygen was eating well. Pt presented to the ER with reports of being somnolent at home. Pt's fiance checked her sugar repeatedly and it became very high because she was unable to get her insulin at [facility]. While in the ED, she was found to have DKA with mild acetone levels in her serum, hyperglycemia and dehydration evident along with hypokalemia and was admitted with IV insulin, and placed on vancomycin and Zosyn for sepsis. PMH: CAD (coronary atherosclerotic disease), Cellulitis, Diabetes, Diabetes mellitus, Diastolic dysfunction, Hyperlipidemia, Hypertension, Insulin pump in place, Mood disorder, Thyroid disease, Tobacco dependence syndrome Subjective Subjective Pt presents in semi-fowlers position in bed, pleasant and agreeable to therapy initial evaluation. Pt denies reports of pain at rest. Pt reports that she lives at home with her fiance in a H. Pt reports that she was independent with all B/IADL's prior to admission. Pt performed supine to sit on EOB with mod A for assistance of LE's and to mo
[2023-04-20 12:33] LABS: POC Glucose,Bedside 211 (70-110)
--- NOTE | 2023-04-20 12:41 | PC.NURSE ---
[address] Alonzo. give 1 liter Ns bolus of 3-4 hours. then start maintenance fluids ns @ 150ml/hr. start phenergan 12.5mg q6h prn. cbc and bmp @ 1400 1015 pt fsbs 84. pt given apple juice at this time [address] Alonzo that pt is down to 1 iv, meds are not compatible, unable to find US iv. if able to locate iv for PICC is it ok to insert PICC? 1044 ok to insert picc if able to find one. 1140 results of glucose 56 and fsbs [address] Alonzo. [address] Alonzo complete ns bolus, change maintenance fluids to D5NS @ 100. draw labs at 1530. 1223 fsbs 211 1200 Rina Hamilton rn at bedside to insert picc. [address] [facility] in regards to PICC. States that picc is coiled in lower SVC. notified Rina Hamilton RN.
--- NOTE | 2023-04-20 14:09 | XR_ITS ---
FINAL REPORT CLINICAL HISTORY: PICC Placement COMPARISON: 04/20/2023 FINDINGS: SINGLE-VIEW CHEST The heart size is normal. The mediastinum is normal. There are persistent diffuse pulmonary opacities, may represent edema, bilateral pneumonia, or ARDS. Right PICC line has been repositioned with the tip at the cavoatrial junction. There is no pneumothorax. IMPRESSION: Repositioned PICC line. Diffuse pulmonary opacities as above. Reviewed, Interpreted and Dictated by Mg Perez III, MD Transcribed by Cheryl Salcido Authenticated and [facility]
[2023-04-20 16:01] LABS: POC Glucose,Bedside 317 (70-110)
[2023-04-20 16:04] LABS: Basophils % 0.1 % (0.1-2.0); Eosinophils # 0.1 K/mm3 (0.0-0.4); Eosinophils % 0.6 % (0.1-12.0); Hematocrit 28.9 % (37.0-47.0); Hemoglobin 8.7 g/dL (12.2-16.2); Lymphocytes # 0.9 K/mm3 (0.7-4.5); Lymphocytes % 4.6 % (10-50); Mean Corpuscular Hemoglobin 27.4 pg (27.0-31.2); Mean Corpuscular Volume 91.1 fl (81-99); Mean Platelet Volume 7.9 fl (7.4-10.4); Monocytes # 0.6 K/mm3 (0.1-1.0); Monocytes % 3.4 % (1.7-9.3); Neutrophils # 17.2 K/mm3 (1.8-7.8); Neutrophils % 91.4 % (37.0-80.0); Platelet Count 515 K/mm3 (142-424); Red Blood Count 3.17 M/mm3 (4.20-5.40); Red Cell Distribution Width 17.4 % (11.5-17.5); White Blood Count 18.8 K/mm3 (4.8-10.8)
[2023-04-20 16:06] LABS: MANUAL DIFFERENTIAL MANUAL DIFFERENTIAL (MANUAL DIFF)
[2023-04-20 16:11] LABS: Chloride 111 mmol/L (98-107)
[2023-04-20 16:12] LABS: Potassium 4.3 mmoL/L (3.5-5.1); Sodium 138 mmol/L (136-145)
--- NOTE | 2023-04-20 16:12 | PC.NURSE ---
Addendum entered by Alondra Hinson RN 04/20/23 16:15: pt to transfer back to stepdown status. Original Note: [address] Alonzo that pt labs are currently pending, fsbs 317. but xray from picc placement reads as persistent diffuse pulmonary opacities, may represent edema, pawel pneumonia or ards. pt lung edwards are noted to have more crackles now, than previous assessments. HR 119 BP 147/49 new orders. change ivf to d5ns @ 50
[2023-04-20 16:15] LABS: Anion Gap 7.3 mEq/L (5-15); Blood Urea Nitrogen 11 mg/dl (7-17); Calcium 8.3 mg/dl (8.4-10.2); Carbon Dioxide 24 mmol/L (22.0-30.0); Creatinine Clearance Estimated 100 mL/min (50-200); Estimated Glomerular Filt Rate 85 ml/min (>60); GFR (African American) 103 ML/MIN (>60); Glucose 284 mg/dl (74-100)
--- NOTE | 2023-04-20 16:31 | PC.NURSE ---
late entry: [address] Alonzo. give 1 liter Ns bolus of 3-4 hours. then start maintenance fluids ns @ 150ml/hr. start phenergan 12.5mg q6h prn. cbc and bmp @ 1400 1015 pt fsbs 84. pt given apple juice at this time [address] Alonzo that pt is down to 1 iv, meds are not compatible, unable to find US iv. if able to locate iv for PICC is it ok to insert PICC? 1044 ok to insert picc if able to find one. 1140 results of glucose 56 and fsbs [address] Alonzo. [address] dr Alonzo that pt also received amp of D 50. [address] Alonzo complete ns bolus, change maintenance fluids to D5NS @ 100. draw labs at 1530. per Dr Alonzo give pt total of 2 amps d 50 1223 fsbs 211 1200 Rina Hamilton rn at bedside to insert picc. 1309 received call from [facility] in regards to PICC. States that picc is coiled in lower SVC. notified Rina Hamilton RN.
--- NOTE | 2023-04-20 16:37 | PC.NURSE ---
Dr Swain notified via phone of CBC and BMP results. no new orders clarified with Dr Swain that pt sugar was 317. pt is to receive 10 units sliding scale insulin. per Dr Swain please medicate pt with insulin at this time.,
[2023-04-20 17:10] LABS: Eosinophils % 1 % (0-3); Hypochromasia 2+; Lymphocytes % 7 % (10-50); Monocytes % 1 % (2-9); Neutrophils % 91 % (42-76); Ovalocytes 1+; Platelet Estimate Slight Increase; Total Cells Counted 100
--- NOTE | 2023-04-20 17:18 | ECG_ITS ---
APPROVED REPORT Exam: Resting ECG HR:128 bpm ECG Measurements Heart Rate 128 AXES TN 125 P 66 QRSd 81 QRS 29 QT 293 T 0 QTc 369 Conclusion SINUS TACHYCARDIA NONSPECIFIC ST & T-WAVE ABNORMALITY ABNORMAL RHYTHM ECG UNCONFIRMED REPORT Electronically signed by : Enoch Alonzo MD 04/22/2023 15:08:05
[2023-04-20 17:49] LABS: POC Glucose,Bedside 421 (70-110)
--- NOTE | 2023-04-20 18:47 | PC.NURSE ---
[address] Bar via phone that pt now has 2+ pitting edema in ble, crackles are more audible without stethoscope, pt is claiming something is wrong and doesn't feel right . hr is now 120 -130. pt has stat ekg that shows sinus tach. o2 increased to 3lpm sating mid 80's. new orders lasix 40mg iv times 1. 1724 lasix 40mg admin 1740 called and spoke to dr culver. notified him that pt was extremely restless. hr noted to be 140's. obtain stat abg at this time. Dr bar requested to have Dr Moffett see pt to [facility] for potential recommendations for treatment. olvera cath placed r/t change in status, accurate i/o and lasix being given. 181 Dr Moffett at bedside. abg results reviewed and given to Dr Moffett. per MD start bumex drip to be dosed by pharmacy. start on bipap. abg 1 hour after bipap, bmp q4h x4 [address] Bar aware of and agrees with recommendations by Dr Moffett, orders to be entered and followed. 181 paged [facility] pharmacy to dose bumex drip 181 call returned by pharmacyDung to come to [facility] to mix drip r/t med availability.
[2023-04-20 20:19] LABS: POC Glucose,Bedside 241 (70-110)
[2023-04-20 20:28] LABS: ABG Base Excess -0.5 mmol/L (-2.4-2.3); ABG HCO3 24.6 mmhg (22.0-26.0); ABG Oxygen Saturation 99 % (90-100); ABG PH 7.39 mmol/L (7.35-7.45); ABG PO2 116.7 mmhg (80-100); ABG TCO2 25.9 mmhg (23-27); Oxygen 60% %; Source Left Brachial
[2023-04-20 20:30] LABS: Allen's Test Patient Unable; Oxygen 3LPM %; Source Left Radial
[2023-04-20 20:32] LABS: ABG Base Excess -6.6 mmol/L (-2.4-2.3); ABG HCO3 19.5 mmhg (22.0-26.0); ABG Oxygen Saturation 68 % (90-100); ABG PCO2 38.2 mmhg (35.0-45.0); ABG PH 7.33 mmol/L (7.35-7.45); ABG PO2 36.4 mmhg (80-100); ABG TCO2 20.6 mmhg (23-27)
[2023-04-20 20:34] LABS: Microscopic, Urine URINE MICROSCOPIC (MICROSCOPIC)
[2023-04-20 20:39] LABS: Appearance,Urine CLEAR (Clear); Bilirubin,Urine Negative (Negative); Blood, Urine Negative (Negative); Color,Urine YELLOW (Yellow); Glucose,Urine (UA) Negative (Negative); Ketones,Urine Negative (Negative); Leukocyte Esterase,Urine Negative (Negative); Nitrate,Urine Negative (Negative); Protein,Urine Negative (Negative); Urobilinogen,Urine 0.2 EU/dl (0.2)
[2023-04-20 21:17] LABS: POC Glucose,Bedside 125 (70-110)
[2023-04-20 21:18] LABS: Yeast,Urine 1+ /lpf
[2023-04-20 22:10] LABS: Chloride 106 mmol/L (98-107); Potassium 3.3 mmoL/L (3.5-5.1); Sodium 139 mmol/L (136-145)
[2023-04-20 22:13] LABS: Anion Gap 8.3 mEq/L (5-15); Blood Urea Nitrogen 11 mg/dl (7-17); Carbon Dioxide 28 mmol/L (22.0-30.0); Creatinine Clearance Estimated 100 mL/min (50-200); Estimated Glomerular Filt Rate 85 ml/min (>60); GFR (African American) 103 ML/MIN (>60)
[2023-04-20 22:14] LABS: Calcium 8.3 mg/dl (8.4-10.2); Glucose 101 mg/dl (74-100)
[2023-04-20 23:13] LABS: POC Glucose,Bedside 102 (70-110)
[2023-04-21] VITALS (17 sets, daily range): BP systolic 96–154; BP diastolic 40–76; PULSE 84–120; RESP 12–30; TEMP 36.7–37.5; O2SAT 91–100; BMI 23.6
[2023-04-21 01:17] LABS: POC Glucose,Bedside 177 (70-110)
[2023-04-21 02:09] LABS: Chloride 103 mmol/L (98-107)
[2023-04-21 02:10] LABS: Sodium 138 mmol/L (136-145)
[2023-04-21 02:12] LABS: Blood Urea Nitrogen 10 mg/dl (7-17); Creatinine Clearance Estimated 100 mL/min (50-200); Estimated Glomerular Filt Rate 85 ml/min (>60); GFR (African American) 103 ML/MIN (>60)
[2023-04-21 02:13] LABS: Calcium 7.8 mg/dl (8.4-10.2); Carbon Dioxide 30 mmol/L (22.0-30.0); Glucose 199 mg/dl (74-100)
[2023-04-21 05:09] LABS: POC Glucose,Bedside 388 (70-110)
[2023-04-21 06:34] LABS: Basophils % 0.1 % (0.1-2.0); Eosinophils # 0.1 K/mm3 (0.0-0.4); Eosinophils % 0.3 % (0.1-12.0); Hematocrit 27.5 % (37.0-47.0); Hemoglobin 8.1 g/dL (12.2-16.2); Lymphocytes # 0.8 K/mm3 (0.7-4.5); Lymphocytes % 4.9 % (10-50); Mean Corpuscular HGB Conc 29.7 g/dL (31.8-35.4); Mean Corpuscular Hemoglobin 27.2 pg (27.0-31.2); Mean Corpuscular Volume 91.6 fl (81-99); Mean Platelet Volume 8.1 fl (7.4-10.4); Monocytes # 0.6 K/mm3 (0.1-1.0); Monocytes % 3.4 % (1.7-9.3); Neutrophils # 15.3 K/mm3 (1.8-7.8); Neutrophils % 91.4 % (37.0-80.0); Platelet Count 448 K/mm3 (142-424); Red Cell Distribution Width 18.1 % (11.5-17.5); White Blood Count 16.8 K/mm3 (4.8-10.8)
[2023-04-21 07:01] LABS: MANUAL DIFFERENTIAL MANUAL DIFFERENTIAL (MANUAL DIFF)
--- NOTE | 2023-04-21 07:30 | PC.NURSE ---
removed bipap and placed pt on 3LNc so pt can eat breakfast
[2023-04-21 07:31] LABS: Anisocytosis 1+; Hypochromasia 1+; Lymphocytes % 12 % (10-50); Monocytes % 3 % (2-9); Neutrophils % 84 % (42-76); Platelet Estimate Normal; Total Cells Counted 100
[2023-04-21 07:39] LABS: Alanine Aminotransferase 24 U/L (12-78); Albumin Level 1.9 g/dl (3.5-5.0); Albumin/Globulin Ratio 0.7 (1.1-1.8); Alkaline Phosphatase 228 U/L (38-126); Anion Gap 10.7 mEq/L (5-15); Aspartate Amino Transferase 53 U/L (14-36); Bilirubin,Total 0.2 mg/dl (0.2-1.3); Blood Urea Nitrogen 12 mg/dl (7-17); Calcium 7.2 mg/dl (8.4-10.2); Carbon Dioxide 27 mmol/L (22.0-30.0); Chloride 101 mmol/L (98-107); Creatinine Clearance Estimated 101 mL/min (50-200); Estimated Glomerular Filt Rate 85 ml/min (>60); GFR (African American) 103 ML/MIN (>60); Globulin 2.8 g/dL (1.3-3.2); Glucose 380 mg/dl (74-100); Potassium 3.7 mmoL/L (3.5-5.1); Sodium 135 mmol/L (136-145); Total Protein,Serum 4.7 g/dl (6.3-8.2)
--- NOTE | 2023-04-21 08:37 | EXP.ACUTE.PN ---
Subjective *Date: 04/21/23 *Time: 08:37 Interval history: Patient had several events happen over the past 24 hours. Significant problems with up-and-down glucose levels. We have settled on low rate volume glucose infusions to avoid hypoglycemia. Also had problems with pulmonary edema, decreased oxygenation status. Rapid response last night resulted in institution of a Bumex drip and CPAP therapy overnight which is markedly improved patient's situation. She is diuresed about 4 L and has been able to be on a nasal cannula at 3 L this morning. She feels much better. Able to mentate and eat a little bit more today. Medical Exam Vital signs and Labs for Last 24 Hours: Vital Signs Temp Pulse Pulse Resp BP BP Pulse Ox 04/21/23 08:00 110 H 27 H 123/52 L 99 04/21/23 07:56 99.4 F 04/21/23 07:00 04/21/23 07:03 04/21/23 06:00 115 H 20 114/49 L 93 L 04/21/23 05:00 04/21/23 04:00 103 H 04/21/23 04:00 113 H 96 04/21/23 04:00 99.4 F 113 H 24 96/40 L 96 04/21/23 03:00 04/21/23 02:00 115 H 24 131/69 98 04/20/23 22:00 110 H 22 141/71 H 95 04/20/23 20:00 98.4 F 107 H 20 138/67 100 04/21/23 02:00 04/21/23 02:01 04/21/23 00:00 113 H 04/21/23 01:00 04/21/23 00:00 112 H 27 H 154/76 H 100 04/20/23 23:00 04/20/23 22:00 04/20/23 21:00 04/20/23 20:00 107 H 23 100 04/20/23 21:05 04/20/23 18:25 04/20/23 19:00 113 H 20 145/69 H 100 04/20/23 18:00 22 04/20/23 18:00 130 H 22 138/64 72 L 04/20/23 17:00 123 H 22 125/73 91 L 04/20/23 17:20 130 H 93 L 04/20/23 19:00 04/20/23 16:00 120 H 04/20/23 17:00 04/20/23 15:00 04/20/23 13:00 04/20/23 09:00 04/20/23 12:00 110 H 04/20/23 16:00 99.0 F 119 H 33 H 147/49 H 94 L O2 Del Method O2 Flow Rate FiO2 04/21/23 08:00 Nasal Cannula 3 04/21/23 07:56 04/21/23 07:00 BiPAP 04/21/23 07:03 35 04/21/23 06:00 Nasal Cannula 2 04/21/23 05:00 BiPAP 04/21/23 04:00 04/21/23 04:00 BiPAP 35 04/21/23 04:00 BiPAP 35 04/21/23 03:00 BiPAP 04/21/23 02:00 BiPAP 35 04/20/23 22:00 BiPAP 35 04/20/23 20:00 35 04/21/23 02:00 35 04/21/23 02:01 35 04/21/23 00:00 04/21/23 01:00 BiPAP 04/21/23 00:00 BiPAP 35 04/20/23 23:00 BiPAP 04/20/23 22:00 35 04/20/23 21:00 BiPAP 04/20/23 20:00 BiPAP 60 04/20/23 21:05 35 04/20/23 18:25 60 04/20/23 19:00 BiPAP 60 04/20/23 18:00 Venturi Mask 50 04/20/23 18:00 Venturi Mask 50 04/20/23 17:00 Nasal Cannula 2 04/20/23 17:20 Nasal Cannula 3 04/20/23 19:00 BiPAP 04/20/23 16:00 04/20/23 17:00 Nasal Cannula 3 04/20/23 15:00 Nasal Cannula 2 04/20/23 13:00 Nasal Cannula 2 04/20/23 09:00 Nasal Cannula 2 04/20/23 12:00 04/20/23 16:00 Nasal Cannula 2 Intake and Output 04/20/23 04/21/23 04/21/23 19:59 03:59 11:59 Intake Total 0 / 2300 1952 / 2300 348 / 2300 Output Total 0 / 6200 5600 / 6200 600 / 6200 Balance 0 / -3900 -3648 / -3900 -252 / -3900 Intake: Intake, Oral Amount 0 / 0 Intake, Total IV Amount 1951 / 2299 0.9 % Sodium Chloride 1000ML 1, 1000 / 1000 000 ml @ 500 mls/hr IV .Q2H [facility] Rx#:[id number] Azithromycin 500 mg In 0.9 % 250 / 250 Sodium Chloride 250 ml @ 250 mls/hr IV Q24H [facility] Rx#:[id number] Bumetanide 25 mg In 0.9 % 18 / 47 29 / 47 Sodium Chloride 150 ml @ 5 mls/ hr IV .Q24H [facility] Rx#:[id number] Calcium Gluconate 2,000 mg In 0 100 / 100 .9 % Sodium Chloride 100 ml @ 60 mls/hr IV ONCE ONE Rx#: [id number] Ceftriaxone 1 gm 1 gm In 0.9 % 50 / 50 Sodium Chloride 50 ml @ 100 mls /hr IV Q24H [facility] Rx#:[id number] Dextrose 5 % and 0.9 % NaCl 1, 113 / 373 260 /
--- NOTE | 2023-04-21 10:00 | PC.NURSE ---
notified MD Alonzo of pt's positive cultures, no new orders at this time
[2023-04-21 11:40] LABS: Anion Gap 4.7 mEq/L (5-15); Blood Urea Nitrogen 12 mg/dl (7-17); Calcium 7.2 mg/dl (8.4-10.2); Carbon Dioxide 35 mmol/L (22.0-30.0); Chloride 98 mmol/L (98-107); Creatinine Clearance Estimated 101 mL/min (50-200); Estimated Glomerular Filt Rate 85 ml/min (>60); GFR (African American) 103 ML/MIN (>60); Glucose 202 mg/dl (74-100); Sodium 135 mmol/L (136-145)
--- NOTE | 2023-04-21 12:10 | PC.NURSE ---
notified MD Alonzo that pt's potassium critical at 2.7, instructed this RN to order 60mEq potassium po, sent pharmacy requisition form
[2023-04-21 12:11] LABS: Potassium 2.7 mmoL/L (3.5-5.1)
--- NOTE | 2023-04-21 17:53 | PC.NURSE ---
pt had large bm earlier and potassium with abg at this time is 5.72 so potassium is coming down, glucose was too high to read on the abg so will order random glucose from lab for the 1800 fsbs check
[2023-04-21 19:30] LABS: POC Glucose,Bedside 236 (70-110)
[2023-04-21 19:30] LABS: POC Glucose,Bedside 346 (70-110)
[2023-04-21 19:30] LABS: POC Glucose,Bedside 229 (70-110)
[2023-04-21 19:30] LABS: POC Glucose,Bedside 430 (70-110)
[2023-04-21 20:05] LABS: POC Glucose,Bedside 185 (70-110)
--- NOTE | 2023-04-21 23:09 | PC.NURSE ---
RESPIRATORY CARE NOTE: PT REFUSES TO WEAR BIPAP AT THIS TIME. RT TO BE NOTIFIED WHEN PT WANTS TO PLACE BIPAP ON.
[2023-04-22] VITALS (26 sets, daily range): BP systolic 82–133; BP diastolic 34–69; PULSE 75–103; RESP 15–32; TEMP 36.7–37.5; O2SAT 91–100; BMI 23.7
[2023-04-22 02:21] LABS: POC Glucose,Bedside 497 (70-110)
[2023-04-22 05:21] LABS: Basophils % 0.1 % (0.1-2.0); Eosinophils # 0.1 K/mm3 (0.0-0.4); Hematocrit 26.1 % (37.0-47.0); Hemoglobin 7.9 g/dL (12.2-16.2); Lymphocytes # 0.8 K/mm3 (0.7-4.5); Lymphocytes % 7.5 % (10-50); Mean Corpuscular HGB Conc 30.2 g/dL (31.8-35.4); Mean Corpuscular Hemoglobin 27.9 pg (27.0-31.2); Mean Corpuscular Volume 92.2 fl (81-99); Mean Platelet Volume 8.3 fl (7.4-10.4); Monocytes # 0.5 K/mm3 (0.1-1.0); Monocytes % 4.2 % (1.7-9.3); Neutrophils # 9.6 K/mm3 (1.8-7.8); Neutrophils % 87.2 % (37.0-80.0); Platelet Count 353 K/mm3 (142-424); Red Blood Count 2.83 M/mm3 (4.20-5.40); Red Cell Distribution Width 18.2 % (11.5-17.5)
[2023-04-22 05:23] LABS: Chloride 90 mmol/L (98-107)
[2023-04-22 05:24] LABS: Sodium 133 mmol/L (136-145)
[2023-04-22 05:25] LABS: MANUAL DIFFERENTIAL MANUAL DIFFERENTIAL (MANUAL DIFF)
[2023-04-22 05:27] LABS: Blood Urea Nitrogen 15 mg/dl (7-17); Calcium 6.5 mg/dl (8.4-10.2); Carbon Dioxide 30 mmol/L (22.0-30.0); Creatinine Clearance Estimated 79 mL/min (50-200); Estimated Glomerular Filt Rate 64 ml/min (>60); GFR (African American) 77 ML/MIN (>60)
[2023-04-22 05:31] LABS: Glucose 525 mg/dl (74-100)
[2023-04-22 05:49] LABS: Lymphocytes % 16 % (10-50); Monocytes % 1 % (2-9); Neutrophils % 83 % (42-76); Platelet Estimate Normal; Total Cells Counted 100
[2023-04-22 05:50] LABS: Anisocytosis 1+; Hypochromasia 1+
[2023-04-22 06:35] LABS: POC Glucose,Bedside 544 (70-110)
--- NOTE | 2023-04-22 08:35 | XR_ITS ---
PROCEDURE INFORMATION: Exam: XR Chest Exam date and time: 04/22/2023 6:10 AM Age: 58 years old Clinical indication: Shortness of breath; Additional info: F/u icu exam TECHNIQUE: Imaging protocol: Radiologic exam of the chest. Views: 1 view. COMPARISON: CR XR CHEST PORTABLE 04/20/2023 2:14 PM FINDINGS: Tubes, catheters and devices: Central venous catheter unchanged. Lungs: Patchy diffuse airspace disease is improved compared to the prior study. Pleural spaces: Unremarkable. No pleural effusion. No pneumothorax. Heart/Mediastinum: Unremarkable. No cardiomegaly. Bones/joints: Unremarkable. IMPRESSION: Patchy diffuse airspace disease is improved compared to the prior study. Central venous catheter unchanged.
--- NOTE | 2023-04-22 08:44 | EXP.ACUTE.PN ---
Subjective *Date: 04/22/23 *Time: 08:44 Interval history: Patient is talkative, alert this morning. States I want to go home. Her heart rate is improving in the low 100 range and her blood pressure is in the mid 90s on current regimens for afterload reduction or diastolic dysfunction. Electrolytes this morning were reviewed, potassium has been replaced. Kidney function remains normal per creatinine levels. Her hemoglobin has gone down to 7.9 g. Medical Exam Vital signs and Labs for Last 24 Hours: Vital Signs Temp Pulse Pulse Resp BP Pulse Ox O2 Del Method 04/22/23 07:50 99.0 F 04/22/23 07:00 Nasal Cannula 04/22/23 06:46 100 Nasal Cannula 04/22/23 06:00 100 H 18 111/47 L 100 Nasal Cannula 04/22/23 04:00 90 04/22/23 04:00 98.6 F 96 H 20 88/34 L 100 Nasal Cannula 04/22/23 04:00 100 Nasal Cannula 04/22/23 03:00 Nasal Cannula 04/22/23 02:00 94 H 18 82/38 L 100 Nasal Cannula 04/22/23 00:00 90 04/22/23 01:00 Nasal Cannula 04/22/23 00:00 99.4 F 91 H 20 101/43 L 100 Nasal Cannula 04/21/23 22:00 86 20 107/41 L 100 Nasal Cannula 04/21/23 20:00 100 H 04/21/23 20:00 99.2 F 90 20 128/57 L 96 Nasal Cannula 04/21/23 20:00 98 Nasal Cannula 04/21/23 18:57 Nasal Cannula 04/21/23 18:00 84 30 H 127/64 91 L Nasal Cannula 04/21/23 16:00 95 Nasal Cannula 04/21/23 16:00 93 H 25 H 124/49 L 98 Nasal Cannula 04/21/23 17:00 Nasal Cannula 04/21/23 15:00 Nasal Cannula 04/21/23 16:00 90 04/21/23 15:27 98.1 F 04/21/23 14:00 95 H 25 H 134/53 L 100 Nasal Cannula 04/21/23 12:00 92 H 04/21/23 12:00 91 H 25 H 134/61 100 Nasal Cannula 04/21/23 13:00 Nasal Cannula 04/21/23 11:43 99.5 F 04/21/23 11:00 Nasal Cannula 04/21/23 10:00 107 H 12 108/44 L 95 Nasal Cannula 04/21/23 09:00 Nasal Cannula O2 Flow Rate 04/22/23 07:50 04/22/23 07:00 2 04/22/23 06:46 3 04/22/23 06:00 3 04/22/23 04:00 04/22/23 04:00 3 04/22/23 04:00 3 04/22/23 03:00 3 04/22/23 02:00 3 04/22/23 00:00 04/22/23 01:00 3 04/22/23 00:00 2 04/21/23 22:00 2 04/21/23 20:00 04/21/23 20:00 3 04/21/23 20:00 3 04/21/23 18:57 3 04/21/23 18:00 3 04/21/23 16:00 3 04/21/23 16:00 3 04/21/23 17:00 3 04/21/23 15:00 3 04/21/23 16:00 04/21/23 15:27 04/21/23 14:00 3 04/21/23 12:00 04/21/23 12:00 3 04/21/23 13:00 3 04/21/23 11:43 04/21/23 11:00 3 04/21/23 10:00 3 04/21/23 09:00 3 Intake and Output 04/21/23 04/22/23 04/22/23 19:59 03:59 11:59 Intake Total 390 / 2713 1471 / 2713 852 / 2713 Output Total 5000 / 7600 1300 / 7600 1300 / 7600 Balance -4610 / -4887 171 / -4887 -448 / -4887 Intake: Intake, Oral Amount 390 / 1290 300 / 1290 600 / 1290 Intake, Other Amount 91 / 109 18 / 109 Intake, Total IV Amount 1080 / 1314 234 / 1314 Dextrose 5 % and 0.9 % NaCl 1, 898 / 1098 200 / 1098 000 ml @ 50 mls/hr IV .Q20H [facility] Rx#:[id number] Pantoprazole Sodium 80 mg In 0. 182 / 216 34 / 216 9 % Sodium Chloride 100 ml @ 10 mls/hr IV .Q10H [facility] Rx#: [id number] Output: Output, Urine Amount 3000 / 5600 1300 / 5600 1300 / 5600 Output, Urine Amount (Catheter) 1999 Hernandez 1999 Other: Intake, Other Source Saline Solution Saline Solution Number of Unmeasured Voids 0 0 0 Number of Bowel Movements 1 Weight 165 lb 8.369 oz Patient Weight 04/22/23 11:59 Weight 165 lb 8.369 oz Laboratory Results - last 24 hr 04/18/23 22:30: Urine Color Yellow, Urine Appearance Clear, Urine pH 6.0, Ur Specific Hardin 1.015, Urine Protein Negative, Urine Glucose (UA) 3+, Urine Ketones 1+, Urine Blood Negative, Urine Nitrate Negative, Urine Bilirubin Negative, Urine Urobilinogen 0.2, Ur Leukocyte Esterase Negative, Urine RBC Occasional, Urine
--- NOTE | 2023-04-22 10:59 | EXP.PHA.PN ---
Subjective *Date: 04/22/23 *Time: 10:59 Medical Exam Vital signs and Labs for Last 24 Hours: Vital Signs Temp Pulse Pulse Resp BP Pulse Ox O2 Del Method 04/22/23 08:00 100 Nasal Cannula 04/22/23 09:00 Nasal Cannula 04/22/23 10:00 79 23 91/50 L 100 Nasal Cannula 04/22/23 08:00 83 21 92/36 L 100 Nasal Cannula 04/22/23 08:00 100 Nasal Cannula 04/22/23 08:00 86 04/22/23 07:50 99.0 F 04/22/23 07:00 Nasal Cannula 04/22/23 06:46 100 Nasal Cannula 04/22/23 06:00 100 H 18 111/47 L 100 Nasal Cannula 04/22/23 04:00 90 04/22/23 04:00 98.6 F 96 H 20 88/34 L 100 Nasal Cannula 04/22/23 04:00 100 Nasal Cannula 04/22/23 03:00 Nasal Cannula 04/22/23 02:00 94 H 18 82/38 L 100 Nasal Cannula 04/22/23 00:00 90 04/22/23 01:00 Nasal Cannula 04/22/23 00:00 99.4 F 91 H 20 101/43 L 100 Nasal Cannula 04/21/23 22:00 86 20 107/41 L 100 Nasal Cannula 04/21/23 20:00 100 H 04/21/23 20:00 99.2 F 90 20 128/57 L 96 Nasal Cannula 04/21/23 20:00 98 Nasal Cannula 04/21/23 18:57 Nasal Cannula 04/21/23 18:00 84 30 H 127/64 91 L Nasal Cannula 04/21/23 16:00 95 Nasal Cannula 04/21/23 16:00 93 H 25 H 124/49 L 98 Nasal Cannula 04/21/23 17:00 Nasal Cannula 04/21/23 15:00 Nasal Cannula 04/21/23 16:00 90 04/21/23 15:27 98.1 F 04/21/23 14:00 95 H 25 H 134/53 L 100 Nasal Cannula 04/21/23 12:00 92 H 04/21/23 12:00 91 H 25 H 134/61 100 Nasal Cannula 04/21/23 13:00 Nasal Cannula 04/21/23 11:43 99.5 F 04/21/23 11:00 Nasal Cannula O2 Flow Rate 04/22/23 08:00 3 04/22/23 09:00 3 04/22/23 10:00 3 04/22/23 08:00 3 04/22/23 08:00 3 04/22/23 08:00 04/22/23 07:50 04/22/23 07:00 2 04/22/23 06:46 3 04/22/23 06:00 3 04/22/23 04:00 04/22/23 04:00 3 04/22/23 04:00 3 04/22/23 03:00 3 04/22/23 02:00 3 04/22/23 00:00 04/22/23 01:00 3 04/22/23 00:00 2 04/21/23 22:00 2 04/21/23 20:00 04/21/23 20:00 3 04/21/23 20:00 3 04/21/23 18:57 3 04/21/23 18:00 3 04/21/23 16:00 3 04/21/23 16:00 3 04/21/23 17:00 3 04/21/23 15:00 3 04/21/23 16:00 04/21/23 15:27 04/21/23 14:00 3 04/21/23 12:00 04/21/23 12:00 3 04/21/23 13:00 3 04/21/23 11:43 04/21/23 11:00 3 Intake and Output 04/21/23 04/22/23 04/22/23 23:59 07:59 15:59 Intake Total 120 / 3381 2323 / 2963 640 / 2963 Output Total 2000 / 11553 2600 / 3800 1200 / 3800 Balance -1880 / -7619 -277 / -837 -560 / -837 Intake: Intake, Oral Amount 120 / 1050 900 / 1240 340 / 1240 Intake, Other Amount 109 / 109 Intake, Total IV Amount 1314 / 1614 300 / 1614 Azithromycin 500 mg In 0.9 % 250 / 250 Sodium Chloride 250 ml @ 250 mls/hr IV Q24H [facility] Rx#:[id number] Ceftriaxone 1 gm 1 gm In 0.9 % 50 / 50 Sodium Chloride 50 ml @ 100 mls /hr IV Q24H [facility] Rx#:[id number] Dextrose 5 % and 0.9 % NaCl 1, 1098 / 1098 000 ml @ 50 mls/hr IV .Q20H [facility] Rx#:[id number] Pantoprazole Sodium 80 mg In 0. 216 / 216 9 % Sodium Chloride 100 ml @ 10 mls/hr IV .Q10H [facility] Rx#: [id number] Output: Output, Urine Amount 0 / 9000 2600 / 3800 1200 / 3800 Output, Urine Amount (Catheter) 1999 Hernandez 1999 Other: Intake, Other Source Saline Solution Number of Unmeasured Voids 0 0 1 Number of Bowel Movements 1 1 Weight 75.08 kg Patient Weight 04/22/23 23:59 Weight 75.08 kg Laboratory Results - last 24 hr 04/21/23 05:57: POC Glucose 430 H* 04/21/23 08:14: POC Glucose 346 H* 04/21/23 10:48: POC Glucose 229 H 04/21/23 11:03: Sodium 135 L, Potassium 2.7 L* D, Chloride 98, Carbon Dioxide 35 H, Anion Gap 4.7 L, BUN 12, Creatinine 0.70, Estimated Creat Clear 101, Estimated GFR 85, Est GFR ( Amer) 103, Glucose 202 H
[2023-04-22 11:04] LABS: POC Glucose,Bedside 97 (70-110)
--- NOTE | 2023-04-22 12:02 | PC.NURSE ---
1115-restarted D5NS at 50mL/hr for fsbs of 101
--- NOTE | 2023-04-22 12:06 | PC.NURSE ---
1115-restarted D5NS at 50mL/hr for fsbs of 97
--- NOTE | 2023-04-22 15:57 | PC.NURSE ---
pt sleeping soundly, oxygen saturations dipped to 86-87% on 1LNC, increased oxygen to 2LNC and oxygen saturations 91%
[2023-04-22 16:43] LABS: Hematocrit 31.2 % (37.0-47.0)
[2023-04-22 16:54] LABS: Hemoglobin 10.3 g/dL (12.2-16.2)
[2023-04-22 17:25] LABS: POC Glucose,Bedside 362 (70-110)
[2023-04-22 20:30] LABS: POC Glucose,Bedside 206 (70-110)
[2023-04-23] VITALS (13 sets, daily range): BP systolic 85–111; BP diastolic 37–42; PULSE 49–100; RESP 18–22; TEMP 36.6–37.3; O2SAT 94–100; BMI 22.9
[2023-04-23 03:51] LABS: Vancomycin,Trough 25.1 ug/mL (5.0-10.0)
--- NOTE | 2023-04-23 04:41 | PC.NURSE ---
Lab called with high vanc trough level, pharmacy notified, will skip this dose and they will adjust as needed
--- NOTE | 2023-04-23 07:11 | EXP.ACUTE.PN ---
Subjective *Date: 04/23/23 *Time: 07:11 Interval history: Patient has done better overnight. She has been able to get up and go to the bedside commode in the bathroom with very minimal assistance from nurses and they report her lower extremity strength is better. She again reiterates her strong desire to go home. I reviewed labs, orders that are pending and her culture data. Medical Exam Vital signs and Labs for Last 24 Hours: Vital Signs Temp Pulse Pulse Resp BP BP Pulse Ox 04/23/23 06:54 04/23/23 06:00 81 18 93/41 L 100 04/23/23 05:00 04/23/23 04:00 90 04/23/23 03:06 85 19 97/40 L 99 04/23/23 02:00 90 20 85/42 L 100 04/23/23 01:00 04/23/23 00:00 80 04/23/23 00:00 99.2 F 78 22 100/41 L 100 04/23/23 00:00 100 04/22/23 23:00 04/22/23 22:00 86 20 103/42 L 100 04/22/23 20:00 99.5 F 75 23 114/45 L 100 04/22/23 22:00 04/22/23 20:00 04/22/23 21:00 04/22/23 20:00 80 04/22/23 18:33 04/22/23 18:08 04/22/23 18:00 89 22 91/40 L 91 L 04/22/23 16:00 79 04/22/23 17:00 04/22/23 16:09 103 H 20 133/69 100 04/22/23 15:44 98.3 F 04/22/23 16:00 102 H 25 H 132/51 L 91 L 04/22/23 15:58 91 L 04/22/23 15:57 91 L 04/22/23 15:15 04/22/23 15:09 88 32 H 108/45 L 98 04/22/23 14:15 93 H 16 125/54 L 95 04/22/23 14:00 86 18 125/54 L 98 04/22/23 13:45 80 16 100/50 L 100 04/22/23 13:30 98.5 F 80 21 92/44 L 97 04/22/23 13:25 98.5 F 84 15 120/51 L 97 04/22/23 13:00 04/22/23 13:20 98.3 F 92 H 25 H 122/56 L 99 04/22/23 13:15 98.3 F 90 21 110/43 L 100 04/22/23 13:11 86 16 121/41 L 100 04/22/23 11:00 04/22/23 11:36 98.1 F 04/22/23 08:00 100 04/22/23 09:00 04/22/23 10:00 79 23 91/50 L 100 04/22/23 08:00 83 21 92/36 L 100 04/22/23 08:00 100 04/22/23 08:00 86 04/22/23 07:50 99.0 F O2 Del Method O2 Flow Rate FiO2 04/23/23 06:54 Nasal Cannula 2 04/23/23 06:00 Nasal Cannula 2 04/23/23 05:00 Nasal Cannula 2 04/23/23 04:00 04/23/23 03:06 Nasal Cannula 1 04/23/23 02:00 Nasal Cannula 2 04/23/23 01:00 Nasal Cannula 2 04/23/23 00:00 04/23/23 00:00 Nasal Cannula 2 04/23/23 00:00 Nasal Cannula 2 04/22/23 23:00 Nasal Cannula 2 04/22/23 22:00 Nasal Cannula 2 04/22/23 20:00 Nasal Cannula 2 04/22/23 22:00 35 04/22/23 20:00 Nasal Cannula 04/22/23 21:00 Nasal Cannula 04/22/23 20:00 04/22/23 18:33 Nasal Cannula 2 28 04/22/23 18:08 Nasal Cannula 2 04/22/23 18:00 Nasal Cannula 2 04/22/23 16:00 04/22/23 17:00 Nasal Cannula 2 04/22/23 16:09 04/22/23 15:44 04/22/23 16:00 Nasal Cannula 2 04/22/23 15:58 Nasal Cannula 2 04/22/23 15:57 Nasal Cannula 2 04/22/23 15:15 Nasal Cannula 1 04/22/23 15:09 04/22/23 14:15 04/22/23 14:00 04/22/23 13:45 04/22/23 13:30 04/22/23 13:25 04/22/23 13:00 Nasal Cannula 3 04/22/23 13:20 04/22/23 13:15 04/22/23 13:11 04/22/23 11:00 Nasal Cannula 3 04/22/23 11:36 04/22/23 08:00 Nasal Cannula 3 04/22/23 09:00 Nasal Cannula 3 04/22/23 10:00 Nasal Cannula 3 04/22/23 08:00 Nasal Cannula 3 04/22/23 08:00 Nasal Cannula 3 04/22/23 08:00 04/22/23 07:50 Intake and Output 04/22/23 04/23/23 04/23/23 19:59 03:59 11:59 Intake Total 1199 / 2504 1305 / 2504 Output Total 425 / 925 500 / 925 0 / 925 Balance 774 / 1579 805 / 1579 0 / 1579 Intake: Intake, Oral Amount 480 / 720 240 / 720 Intake, Other Amount 50 / 50 Intake, Total IV Amount 419 / 419 Bumetanide 25 mg In 0.9 % Sodium Chloride 150 ml @ 5 mls/ hr IV .Q24H [facility] [place] Rx#:[id number] Calcium Gluconate 2,000 mg In 0 100 / 100
--- NOTE | 2023-04-23 07:55 | PC.NURSE ---
0750: spoke with Dr Alonzo. asked if md wanted pt to have labs drawn this am and if md wanted to continue IVF per md order CBC and CMP and DC D5 fluids
[2023-04-23 08:51] LABS: Basophils % 0.1 % (0.1-2.0); Eosinophils # 0.1 K/mm3 (0.0-0.4); Eosinophils % 0.9 % (0.1-12.0); Hematocrit 31.2 % (37.0-47.0); Hemoglobin 9.9 g/dL (12.2-16.2); Lymphocytes # 1.5 K/mm3 (0.7-4.5); Lymphocytes % 11.1 % (10-50); Mean Corpuscular HGB Conc 31.6 g/dL (31.8-35.4); Mean Corpuscular Hemoglobin 27.5 pg (27.0-31.2); Mean Corpuscular Volume 87.1 fl (81-99); Mean Platelet Volume 8.7 fl (7.4-10.4); Monocytes # 0.6 K/mm3 (0.1-1.0); Monocytes % 4.6 % (1.7-9.3); Neutrophils # 11.5 K/mm3 (1.8-7.8); Neutrophils % 83.3 % (37.0-80.0); Platelet Count 369 K/mm3 (142-424); Red Blood Count 3.58 M/mm3 (4.20-5.40); Red Cell Distribution Width 18.1 % (11.5-17.5); White Blood Count 13.9 K/mm3 (4.8-10.8)
--- NOTE | 2023-04-23 09:25 | PC.NURSE ---
0915 per reyes Adrian to transfer pt out of stepdown.
[2023-04-23 10:05] LABS: Creatine Kinase < 20 U/L (30-135)
[2023-04-23 10:40] LABS: Chloride 91 mmol/L (98-107); Sodium 132 mmol/L (136-145)
[2023-04-23 10:43] LABS: Alanine Aminotransferase 32 U/L (12-78); Albumin/Globulin Ratio 0.8 (1.1-1.8); Alkaline Phosphatase 179 U/L (38-126); Anion Gap 14.3 mEq/L (5-15); Aspartate Amino Transferase 38 U/L (14-36); Bilirubin,Total 0.3 mg/dl (0.2-1.3); Blood Urea Nitrogen 16 mg/dl (7-17); Carbon Dioxide 29 mmol/L (22.0-30.0); Creatinine Clearance Estimated 76 mL/min (50-200); Estimated Glomerular Filt Rate 64 ml/min (>60); GFR (African American) 77 ML/MIN (>60); Globulin 2.5 g/dL (1.3-3.2); Total Protein,Serum 4.5 g/dl (6.3-8.2)
[2023-04-23 10:44] LABS: Calcium 7.2 mg/dl (8.4-10.2); Glucose 200 mg/dl (74-100)
[2023-04-23 10:45] LABS: Potassium 2.3 mmoL/L (3.5-5.1)
--- NOTE | 2023-04-23 11:29 | INFXCTL.NOTE ---
[address] Alonzo that pt K+ is 2.3 1058 new orders Potassium 60mEq PO bid today only then dc order
[2023-04-23 12:00] LABS: POC Glucose,Bedside 111 (70-110)
--- NOTE | 2023-04-23 14:36 | PC.NURSE ---
pt was transitioned to room air at approx 1315. tolerated while awake. when sleeping it was noted that pt would desat to 87%.
[2023-04-23 16:31] LABS: POC Glucose,Bedside 388 (70-110)
--- NOTE | 2023-04-23 18:21 | PC.NURSE ---
Pt has rested throughout the day. pt was up to the chair for a few hours in the early afternoon. pt tolerated this well. pt was able to transition to room air while awake, but when asleep o2 sats dropped to the upper 80's. 2lpm o2 were reapplied. lung sounds contain scattered rhonchi throughout. bowel sounds are active in all quads. nad. pt has been alert to self and place, but appears to have difficulty with short term memory.
[2023-04-24] VITALS (10 sets, daily range): BP systolic 98–118; BP diastolic 38–49; PULSE 59–102; RESP 16–21; TEMP 36.8–37.6; O2SAT 95–100; BMI 20.7
[2023-04-24 05:48] LABS: Basophils % 0.3 % (0.1-2.0); Eosinophils # 0.2 K/mm3 (0.0-0.4); Eosinophils % 1.5 % (0.1-12.0); Hematocrit 32.1 % (37.0-47.0); Hemoglobin 9.8 g/dL (12.2-16.2); Lymphocytes % 9.9 % (10-50); Mean Corpuscular HGB Conc 30.5 g/dL (31.8-35.4); Mean Corpuscular Hemoglobin 27.8 pg (27.0-31.2); Mean Platelet Volume 8.2 fl (7.4-10.4); Monocytes # 0.5 K/mm3 (0.1-1.0); Monocytes % 4.5 % (1.7-9.3); Neutrophils # 8.8 K/mm3 (1.8-7.8); Neutrophils % 83.9 % (37.0-80.0); Platelet Count 309 K/mm3 (142-424); Red Blood Count 3.53 M/mm3 (4.20-5.40); Red Cell Distribution Width 18.6 % (11.5-17.5); White Blood Count 10.5 K/mm3 (4.8-10.8)
[2023-04-24 06:02] LABS: Anion Gap 17.6 mEq/L (5-15); Blood Urea Nitrogen 17 mg/dl (7-17); Calcium 7.4 mg/dl (8.4-10.2); Carbon Dioxide 26 mmol/L (22.0-30.0); Chloride 91 mmol/L (98-107); Creatinine Clearance Estimated 77 mL/min (50-200); Estimated Glomerular Filt Rate 73 ml/min (>60); GFR (African American) 89 ML/MIN (>60); Glucose 318 mg/dl (74-100); Potassium 4.6 mmoL/L (3.5-5.1); Sodium 130 mmol/L (136-145)
--- NOTE | 2023-04-24 06:58 | XR_ITS ---
FINAL REPORT CLINICAL HISTORY: f/u icu exam COMPARISON: 04/22/2023 FINDINGS: A PICC line is present with its tip in the right atrium. The heart size is normal. The mediastinum is normal. The bilateral airspace opacities noted on the prior chest x-ray remain present, and are unchanged in appearance. There are no pleural effusions. There is no pneumothorax. There is no osseous abnormality. IMPRESSION: Bilateral airspace opacities noted previously remained stable. Reviewed, Interpreted and Dictated by Codey Rodrigez MD Transcribed by Gaviota Shaw Authenticated and [facility]
[2023-04-24 07:31] LABS: POC Glucose,Bedside 169 (70-110)
[2023-04-24 07:31] LABS: POC Glucose,Bedside 409 (70-110)
--- NOTE | 2023-04-24 08:11 | EXP.ACUTE.PN ---
Subjective *Date: 04/24/23 *Time: 08:11 Interval history: Patient did well overnight. Oxygen requirements have improved, telemetry monitoring has also been stable. Medical Exam Vital signs and Labs for Last 24 Hours: Vital Signs Temp Pulse Pulse Resp BP Pulse Ox O2 Del Method 04/24/23 07:46 98.6 F 102 H 19 116/49 L 95 Nasal Cannula 04/24/23 06:56 Nasal Cannula 04/24/23 04:00 90 04/24/23 05:00 Nasal Cannula 04/24/23 04:00 98.2 F 59 L 18 99/40 L 100 Room Air 04/24/23 00:00 90 04/24/23 04:00 94 H 21 99/40 L 100 Nasal Cannula 04/24/23 03:00 Nasal Cannula 04/24/23 01:00 Nasal Cannula 04/24/23 00:00 100 Nasal Cannula 04/24/23 00:00 99.4 F 63 18 105/43 L 97 Nasal Cannula 04/23/23 23:00 Nasal Cannula 04/23/23 21:00 Nasal Cannula 04/23/23 20:00 100 Nasal Cannula 04/23/23 20:00 90 04/23/23 20:00 99 F 49 L 18 104/42 L 94 L Room Air 04/23/23 19:00 Nasal Cannula 04/23/23 16:00 99 F 96 H 19 99/40 L 96 Room Air 04/23/23 16:00 100 H 04/23/23 17:05 100 Nasal Cannula 04/23/23 12:00 80 04/23/23 14:44 Nasal Cannula 04/23/23 13:46 Room Air 04/23/23 12:00 97.8 F 86 18 111/40 L 96 Nasal Cannula 04/23/23 11:00 Nasal Cannula 04/23/23 09:00 97 H 20 89/39 L 100 Nasal Cannula 04/23/23 08:15 81 100 Nasal Cannula 04/23/23 09:00 Nasal Cannula 04/23/23 10:00 74 18 111/37 L 100 Nasal Cannula O2 Flow Rate 04/24/23 07:46 2 04/24/23 06:56 2 04/24/23 04:00 04/24/23 05:00 2 04/24/23 04:00 04/24/23 00:00 04/24/23 04:00 2 04/24/23 03:00 2 04/24/23 01:00 2 04/24/23 00:00 2 04/24/23 00:00 2 04/23/23 23:00 2 04/23/23 21:00 2 04/23/23 20:00 2 04/23/23 20:00 04/23/23 20:00 04/23/23 19:00 04/23/23 16:00 04/23/23 16:00 04/23/23 17:05 2 04/23/23 12:00 04/23/23 14:44 2 04/23/23 13:46 04/23/23 12:00 04/23/23 11:00 2 04/23/23 09:00 2 04/23/23 08:15 2 04/23/23 09:00 2 04/23/23 10:00 2 Intake and Output 04/23/23 04/24/23 04/24/23 19:59 03:59 11:59 Intake Total 240 / 480 240 / 480 0 / 480 Output Total 450 / 451 1 / 451 Balance -210 / 29 239 / 29 0 / 29 Intake: Intake, Oral Amount 240 / 480 240 / 480 0 / 480 Output: Output, Urine Amount 450 / 451 1 / 451 Other: Number of Unmeasured Voids 0 1 1 Number of Bowel Movements 1 Weight 144 lb 8 oz Patient Weight 04/24/23 11:59 Weight 144 lb 8 oz Laboratory Results - last 24 hr 04/23/23 06:02: POC Glucose 409 H* 04/23/23 08:36: WBC 13.9 H D, RBC 3.58 L D, Hgb 9.9 L, Hct 31.2 L, MCV 87.1, MCH 27.5, MCHC 31.6 L, RDW 18.1 H, Plt Count 369, MPV 8.7, Neut % (Auto) 83.3 H, Lymph % (Auto) 11.1, [place] % (Auto) 4.6, Eos % (Auto) 0.9, Baso % (Auto) 0.1, Neut # (Auto) 11.5 H, Lymph # (Auto) 1.5, [place] # (Auto) 0.6, Eos # (Auto) 0.1, Baso # (Auto) 0.0, Sodium 132 L, Potassium 2.3 L* D, Chloride 91 L, Carbon Dioxide 29, Anion Gap 14.3, BUN 16, Creatinine 0.90, Estimated Creat Clear 76, Estimated GFR 64, Est GFR ( Amer) 77, Glucose 200 H, Calcium 7.2 L, Total Bilirubin 0.3, AST 38 H D, ALT 32 D, Alkaline Phosphatase 179 H, Total Creatine Kinase < 20 L, Total Protein 4.5 L, Albumin 2.0 L, Globulin 2.5, Albumin/Globulin Ratio 0.8 L 04/23/23 11:50: POC Glucose 111 H 04/23/23 16:23: POC Glucose 388 H* 04/23/23 20:23: POC Glucose 169 H 04/24/23 05:28: WBC 10.5, RBC 3.53 L, Hgb 9.8 L, Hct 32.1 L, MCV 91.0, MCH 27.8, MCHC 30.5 L, RDW 18.6 H, Plt Count 309, MPV 8.2, Neut % (Auto) 83.9 H, Lymph % (Auto) 9.9 L, [place] % (Auto) 4.5, Eos % (Auto) 1.5, Baso % (Auto) 0.3, Neut # (Auto) 8.8 H, Lymph # (Auto) 1.0, [place] # (Auto) 0.5, Eos # (Auto) 0.2, Baso # (Auto) 0.0, Sodium 130 L, Potassium 4.6 D, Chloride 91 L, Carbon Dioxide 26, Anion Gap 17.6 H, BUN 17, Creatinine 0.80, Estimated Creat Clear 77, Estimated GFR 73, Est GFR ( Amer) 89, Glucos
[2023-04-24 10:58] LABS: POC Glucose,Bedside 136 (70-110)
--- NOTE | 2023-04-24 13:27 | PC.NURSE ---
Pt coughing, not productive. Currently unable to produce sputum for sample. Dr. Bowling aware.
--- NOTE | 2023-04-24 14:20 | DIET.NUTRFU ---
Addendum entered by Nga Calderón RD, LD 04/25/23 09:36: Kitchen staff attempted to help patient with menu and she still only wanted yogurt. It was explained to her she needs to eat more than yogurt. Nursing noted she refused breakfast this AM. Will continue to encourage po intake Original Note: This RD visited patient today, she has been refusing most of the meals since admit (04/18). Today she ate 50% of lunch, she reported she is finally feeling hungry. Patient prepares own meals at home and only eats when hungry sometimes less then 1 meal/day. RD expressed how important it is to eat at least 2 meals with protein each day. She has been receiving glucerna- dislikes and wants to discontinue. She did request yogurt with trays needs to fill a menu out, kitchen notified. She denied any GI distress, just not hungry. She is having multiple BM daily. She continues on dextrose/NaCL, remeron, lasix and insulin. Labs reviewed, BS elevated, uses insulin pump at home.
--- NOTE | 2023-04-24 16:31 | PC.NURSE ---
nurse gave ok to use a purewick on pt. pt said she is cont but refuses to let staff no.
[2023-04-24 18:38] LABS: POC Glucose,Bedside 453 (70-110)
[2023-04-24 19:25] LABS: POC Glucose,Bedside 474 (70-110)
[2023-04-24 22:01] LABS: POC Glucose,Bedside 206 (70-110)
[2023-04-24 22:01] LABS: POC Glucose,Bedside 283 (70-110)
[2023-04-25] VITALS: BP 90/40; PULSE 100; PULSE 56; RESP 18; TEMP 37.2; O2SAT 92
[2023-04-25 04:00] VITALS: BP 90/38; PULSE 55; PULSE 72; RESP 18; TEMP 36.5; O2SAT 100; BMI 21.7
--- NOTE | 2023-04-25 05:19 | PC.NURSE ---
Patient has had a good night. Has rested through the night. was incontinent through the night. Groin is excoriated. Barrier cream is in place as well as a protective pad on coccyx. RN educated patient that it is imperative that we rotate from side to side and also to tell the nursing staff when she has voided so we can change her. No other issues have been noted.
[2023-04-25 06:11] LABS: POC Glucose,Bedside 97 (70-110)
[2023-04-25 08:00] VITALS: BP 115/42; PULSE 101; PULSE 93; RESP 16; TEMP 36.8; O2SAT 97; O2SAT 98
[2023-04-25 08:55] LABS: Basophils % 0.2 % (0.1-2.0); Eosinophils # 0.1 K/mm3 (0.0-0.4); Eosinophils % 0.9 % (0.1-12.0); Hematocrit 31.3 % (37.0-47.0); Hemoglobin 9.6 g/dL (12.2-16.2); Lymphocytes % 9.2 % (10-50); Mean Corpuscular HGB Conc 30.5 g/dL (31.8-35.4); Mean Corpuscular Hemoglobin 27.8 pg (27.0-31.2); Mean Platelet Volume 8.4 fl (7.4-10.4); Monocytes # 0.4 K/mm3 (0.1-1.0); Monocytes % 4.1 % (1.7-9.3); Neutrophils % 85.6 % (37.0-80.0); Platelet Count 296 K/mm3 (142-424); Red Blood Count 3.44 M/mm3 (4.20-5.40); Red Cell Distribution Width 19.1 % (11.5-17.5); White Blood Count 10.5 K/mm3 (4.8-10.8)
[2023-04-25 08:59] LABS: MANUAL DIFFERENTIAL MANUAL DIFFERENTIAL (MANUAL DIFF)
[2023-04-25 09:14] LABS: Anion Gap 19.4 mEq/L (5-15); Blood Urea Nitrogen 20 mg/dl (7-17); Calcium 7.8 mg/dl (8.4-10.2); Carbon Dioxide 25 mmol/L (22.0-30.0); Chloride 89 mmol/L (98-107); Creatinine Clearance Estimated 81 mL/min (50-200); Estimated Glomerular Filt Rate 73 ml/min (>60); GFR (African American) 89 ML/MIN (>60); Glucose 313 mg/dl (74-100); Potassium 4.4 mmoL/L (3.5-5.1); Sodium 129 mmol/L (136-145)
[2023-04-25 09:34] LABS: Eosinophils % 1 % (0-3); Lymphocytes % 8 % (10-50); Monocytes % 1 % (2-9); Neutrophils % 80 % (42-76); RBC Morphology Normal; Total Cells Counted 100
[2023-04-25 09:35] LABS: Platelet Estimate Normal
--- NOTE | 2023-04-25 10:10 | EXP.DC.SUM ---
General Admission date:: 04/18/23 Discharge date: 04/25/23 HPI HPI HPI: 58-year-old female who was discharged from the hospital yesterday. She had been admitted for bilateral pneumonia, determined to be probable viral but sent home on cefdinir and azithromycin after she was feeling better, no oxygen requirement and eating well. Her course in the hospital was complicated with some up-and-down glucose levels. She had presented with hypoglycemia in the ER and her insulin infusion device had been discontinued. She had been on sliding scale in the hospital and doing fairly well, and her endocrinology folks at had recommended when they called my office yesterday to discharge her home on Humalog and Lantus and not restart her pump device. This was done. I did send her prescriptions for Humalog to [facility] and the patient tells me that when she arrived at [facility] yesterday afternoon they told her they were out of the insulin. As a result she did not get the prescription. She went home and ate and then became very somnolent. Her fianc? checked her sugar repeatedly and it became very high. She was unable to treat this with insulin at home obviously and then came to the ER. In the ER she was found to have DKA with mild acetone levels in her serum, hyperglycemia and dehydration evident along with hypokalemia and was admitted with IV insulin, and placed on vancomycin and Zosyn for sepsis. Hospital Course Hospital Course Hospital Course: Patient was admitted as noted above. DKA was treated with insulin drip until clear. Patient was found to have worsening pulmonary infiltrates/ARDS and treated with broad-spectrum IV antibiotics and had CPAP for a couple of nights for her significant hypoxia. Also found to fluid overload and diuresed with a Bumex drip for 24 hours resulting in a 4 L diuresis and vast improvement of her pulmonary mechanics. Patient was noted to have significant anemia because of chronic disease issues and some evidence of gastritis. PPI was started and she was given 1 unit of packed cells which caused a very nice improvement in her hemoglobin. Echocardiogram showed diastolic dysfunction. She was placed on a regimen of diastolic dysfunction medications including SGLT2 inhibitor, spironolactone and low-dose beta-darron. Tolerated this well. Electrolytes stabilized. She was placed on ceftriaxone and daptomycin for her E. coli UTI and Staph hominis sepsis. She was found to need significant help with ADLs and gait and weakness. PT evaluated her and felt that she would do well in the skilled care placement. Today she will be transferred to the [facility]. Orders will be as follows 1. PT/OT evaluation. 2. Speech/dietary evaluation for diabetic diet. 3. We will change to a Lantus/7030 regimen as noted in the medication orders. Please be aware that she will need an appointment MATEO with the [facility] diabetes clinic to restart her pump which she has had for several years. 4. She will need daptomycin intravenously as ordered for 7 more days. After the daptomycin is finished her PICC line can be discontinued. 5. Other medications are as ordered on discharge summary. 6. Please note she will need a BMP and CBC on 04/27/2023. Exam Data for Last 24 hours Vital signs and Labs for Last 24 Hours: Temp Pulse Resp BP Pulse Ox O2 Del Method O2 Flow Rate 98.3 F 93 H 16 115/42 L 97 Nasal Cannula 2 04/25/23 08:00 04/25/23 08:00 04/25/23 08:00 04/25/23 08:00 04/25/23 08:00 04/25/23 08:00 04/25/23 06:56 FiO2 35 04/22/23 22:00 Laboratory Results - last 24 hr 04/24/23 10:51: POC Glucose 136 H 04/24/23 18:31: POC Glucose 453 H* 04/24/23 19:18: POC Glucose 474 H* 04/24/23 20:43: POC Glucose 283 H 04/24/23 21:48: POC Glucose 206 H 04/25/23 06:01: POC Glucose 97 04/25/23 08:42: WBC 10.5, RBC 3.44 L, Hgb 9.6 L, Hct 31.3 L, MCV 91.0, MCH 27.8, MCHC 30.5 L, RDW 19.1
--- NOTE | 2023-04-25 10:48 | PC.NURSE ---
Spoke to Edwina at [facility], she is currently unable to take report, she has not been faxed a discharge summary.
[2023-04-25 11:01] LABS: POC Glucose,Bedside 437 (70-110)
--- NOTE | 2023-04-25 11:48 | PC.NURSE ---
Called report to Edwina nurse, at [facility]. Right upper arm picc dressing changed today prior to discharge. Dressing dated. Did pass along need for appointment with [facility] for device orders. Continuation of Daptomycin. Need for labwork on 04/27.
== END 2023-04-25 12:02 | DRG 871 ==
LOC: ER 22:23 → 2ND 22:48
PROVIDERS: Family Medicine; Admitting Provider Family Medicine; Emergency Provider Emergency Medicine; PCP Internal Medicine Adolescent Medicine; Visit Provider Internal Medicine Adolescent Medicine
DX: A41.9 Sepsis, unspecified organism (principal); E11.10 Type 2 diabetes mellitus with ketoacidosis without coma; J18.9 Pneumonia, unspecified organism; J80 Acute respiratory distress syndrome; K92.2 Gastrointestinal hemorrhage, unspecified; N39.0 Urinary tract infection, site not specified; E87.6 Hypokalemia; I10 Essential (primary) hypertension; E78.5 Hyperlipidemia, unspecified; I25.10 Atherosclerotic heart disease of native coronary artery without angina pectoris; Z95.5 Presence of coronary angioplasty implant and graft; Z79.4 Long term (current) use of insulin; Z96.41 Presence of insulin pump (external) (internal); B96.20 Unspecified Escherichia coli [E. coli] as the cause of diseases classified elsewhere; D64.89 Other specified anemias; E87.70 Fluid overload, unspecified; E86.0 Dehydration
CPT/HCPCS: 36569; 36410; 36415; 70450; 71045; 80048; 80053; 80202; 80305; 80329; 81001; 82009; 82272; 82550; 82803; 82947; 82962; 83605; 83615; 83880; 84484; 84550; 85007; 85014; 85018; 85025; 85378; 86850; 87040; 87077; 87086; 87088; 87186; 87636; 93005; 93306; 94660; 97110; 97162; 97165; 97530; 99291; C1751; G0328; J0456; J0696; J0878; J2543; P9016

== ENCOUNTER → 2023-05-23 12:23 | Outpatient (CLI) | payer MEDICARE, MEDICAID, SELFPAY ==
--- OUTSIDE RECORDS SUMMARY | 2023-05-23 12:26 | XMS_ITS | Summary of Care ---
Author Name Unknown Organization [facility] Address [address] [place] [address]- Care Team Providers Care Industrial Aerial Installer Name Role Phone Enoch Alonzo Primary Care Physician Unavailab le Encounter 01/05/23 - 01/14/23 [facility] [address] [place] [address] Discharge Disposition: Home with Home Health Care Attending Physician: Chacho Le MD Admitting Physician: Chacho Le MD Allergies, Adverse Reactions, Alerts Substance Reaction Severity Status clindamycin Active Medications Albuterol (Eqv-Proventil HFA) 90 mcg/inh inhalation aerosol = 2 puff, INH, q6hr PRN, INHALE 2 PUFFS BY MOUTH EVERY 6 HOURS, Wheezing Start Date: 01/08/23 Status: Ordered aspirin 81 mg oral delayed release tablet 162 mg, = 2 tab, Indication: Other...See Comments Tab-EC, Oral, Daily, 0 Refill(s), take 81mg 2 tabs = 162 mg daily X 9 more days Start Date: 01/14/23 Status: Ordered atorvastatin 40 mg oral tablet 40 mg = 1 tab, Tab, Oral, QHS, 30 tab, 0 Refill(s) Start Date: 01/08/23 Status: Ordered atropine-diphenoxylate 0.025 mg-2.5 mg oral tablet 2 tab, Oral, QID PRN, 0 Refill(s), Loose stool Start Date: 01/08/23 Status: Ordered bifidobacterium-lactobacillus oral capsule 1 cap, Cap, Oral, Daily, 10 cap, 0 Refill(s), Route to Pharmacy Electronically, [phone], 01/07/23 6:15:00 EDT, Height/Length Dosing, cm, 69.4, 01/07/23 6:15:00 EDT, Weight Dosing, kg Start Date: 01/14/23 Status: Ordered Brilinta (ticagrelor) 90 mg oral tablet 90 mg, = 1 tab, Oral, BID, TAKE 1 TABLET BY MOUTH TWICE DAILY Start Date: 01/08/23 Status: Ordered divalproex sodium 500 mg oral tablet, extended release 500 mg = 1 tab, Tab-ER, Oral, Daily, 30 tab, 0 Refill(s) Start Date: 01/08/23 Status: Ordered Glucagon Emergency Kit for Low Blood Sugar 1 mg injection 1 mg, Injection, Subcutaneous, Once PRN, 0 Refill(s), Hypoglycemia Start Date: 01/05/23 Status: Ordered hydrOXYzine pamoate 25 mg oral capsule 25 mg = 1 cap, Cap, Oral, TID PRN, 40 cap, 0 Refill(s), Anxiety Start Date: 01/08/23 Status: Ordered insulin aspart 100 units/mL injectable solution Standard, Indication: Hyperglycemia
[2023-05-23 14:07] LABS: Albumin Level 2.6 g/dl (3.5-5.0); Chloride 99 mmol/L (98-107); Potassium 3.7 mmoL/L (3.5-5.1); Sodium 137 mmol/L (136-145)
[2023-05-23 14:09] LABS: Blood Urea Nitrogen 3 mg/dl (7-17); Estimated Glomerular Filt Rate 102 ml/min (>60); GFR (African American) 123 ML/MIN (>60)
[2023-05-23 14:10] LABS: Anion Gap 9.7 mEq/L (5-15); Calcium 8.3 mg/dl (8.4-10.2); Carbon Dioxide 32 mmol/L (22.0-30.0); Glucose 201 mg/dl (74-100); Phosphorous 3.7 mg/dl (2.5-4.5)
[2023-05-23 14:23] LABS: 25-OH Vitamin D, Total 36.5 ng/mL (30-100)
[2023-05-25 17:10] LABS: Osteocalcin 12.7 ng/mL (.)
[2023-05-26 02:46] LABS: Tandem-R Ostase 34.3 ug/L (.)
[2023-06-04 23:14] LABS: C-Telopeptide Serum 486 pg/mL (.)
== END ==
PROVIDERS: PCP Internal Medicine Adolescent Medicine; Visit Provider Physician Assistant
DX: M80.00XA Age-related osteoporosis with current pathological fracture, unspecified site, initial encounter for fracture (principal); Z68.25 Body mass index [BMI] 25.0-25.9, adult
CPT/HCPCS: 36415; 80069; 82306; 82523; 83937; 84080

== ENCOUNTER → 2023-05-31 13:11 | Outpatient (CLI) | payer MEDICARE, MEDICAID, SELFPAY | PROVIDERS: PCP Internal Medicine Adolescent Medicine; Visit Provider Physician Assistant | DX: M80.00XA Age-related osteoporosis with current pathological fracture, unspecified site, initial encounter for fracture (principal) ==

== ENCOUNTER 2023-08-30 09:52 | Outpatient (CLI) | payer MEDICARE, MEDICAID, SELFPAY ==
[2023-08-30 10:42] LABS: Chloride 103 mmol/L (98-107); Sodium 136 mmol/L (136-145)
[2023-08-30 10:43] LABS: Albumin Level 3.8 g/dl (3.5-5.0)
[2023-08-30 10:45] LABS: Blood Urea Nitrogen 19 mg/dl (7-17); Calcium 8.9 mg/dl (8.4-10.2); Carbon Dioxide 29 mmol/L (22.0-30.0); Estimated Glomerular Filt Rate 85 ml/min (>60); GFR (African American) 103 ML/MIN (>60); Glucose 174 mg/dl (74-100); Phosphorous 4.4 mg/dl (2.5-4.5)
[2023-08-30 11:03] LABS: 25-OH Vitamin D, Total 64.2 ng/mL (30-100)
[2023-09-03 17:27] LABS: Osteocalcin 20.5 ng/mL (.)
[2023-09-03 19:28] LABS: C-Telopeptide Serum 615 pg/mL (.)
[2023-09-04 18:07] LABS: Tandem-R Ostase 27.4 ug/L (.)
[2023-09-05 12:17] LABS: Serial Monitoring PDF SCANNED IMAGE
== END 2023-08-30 23:59 ==
LOC: LAB 09:54
PROVIDERS: PCP Internal Medicine Adolescent Medicine; Visit Provider Physician Assistant
DX: M80.00XA Age-related osteoporosis with current pathological fracture, unspecified site, initial encounter for fracture (principal)
CPT/HCPCS: 36415; 80069; 82306; 82523; 83937; 84080

== ENCOUNTER → 2023-10-02 20:28 | Outpatient (CLI) | payer MEDICARE, MEDICAID, SELFPAY | PROVIDERS: PCP Internal Medicine Adolescent Medicine; Visit Provider Specialist | DX: G47.33 Obstructive sleep apnea (adult) (pediatric) (principal); G47.36 Sleep related hypoventilation in conditions classified elsewhere | CPT/HCPCS: 95810 ==

== ENCOUNTER 2024-02-08 06:45 | Outpatient (CLI) | payer MEDICARE, MEDICAID, SELFPAY ==
--- NOTE | 2024-02-08 06:48 | NM_ITS ---
APPROVED REPORT Exam: Nuclear Stress Test Indication: CAD, H/O DC, 3 STENTS, DM, TOB USE, C.P. Patient Location: Outpatient Stress Tech: Ilda Trevizo [place] Tech:TATY Hansen RT (R)(N)(M) Ht: 5 ft 5 in Wt: 144 lbs Bra Size: 32B HR: 79 bpm BP: 159/103 mmHg BSA: 1.72 m2 Rhythm: NSR TID: 1.12 BMI: 23.9 History: CAD, H/O DC, 3 STENTS, DM, TOB USE, C.P. PT CAN NOT LAY ON STOMACH FOE PRONE IMAGES Procedure: Patient received 0.4 mg of intravenous Lexiscan, resting heart rate 79 bpm, resting blood pressure 159/103 mmHg, with Lexiscan maximum heart rate achieved was 110 bpm which is % of the maximum predicted heart rate and blood pressure was 161/74 mmHg. With Lexiscan, patient denied any complaint of chest pain. Cardiac Stress and Resting SPECT Images: Cardiac Stress and Resting SPECT images were obtained using technetium 99m Myoview 31.9 mCi stress and 10.90 mCi at rest. The patient could not lie on her abdomen. Therefore, prone stress imaging could not be performed. There is also significant GI radiotracer uptake in close proximity to the inferior border of the LV wall. This may affect the diagnostic interpretation of the study findings. Resting and stress imaging in supine positions demonstrate no evidence of fixed or reversible perfusion defects. Gated imaging demonstrates normal global and regional LV systolic function. LVEF is calculated at 53%. Conclusion: Technically difficult study. No evidence of fixed or reversible perfusion defects. Gated imaging demonstrates normal global and regional LV systolic function. LVEF is calculated at 53%. If there is concern for ongoing ischemia, further evaluation with coronary angiography is suggested in the setting of technically difficult nuclear stress test (due to significant GI radiotracer uptake in close proximity to the inferior LV wall and inability to adequately assess ischemia in that region). Electronically signed by : Allie Zavaleta MD 02/11/2024 11:56:55
[2024-02-08] MEDS: SODIUM CHLORIDE 0.9% 10ML SYR (RAD ONLY) 10 ML IV ×2 (07:05→08:30)
[2024-02-08] MEDS: REGADENOSON 0.4MG/5ML SYRINGE 0.4 MG IV (08:30)
--- NOTE | 2024-02-08 08:52 | CA_ITS ---
APPROVED REPORT Exam: Pharmacologic Technologist: Ilda Quiñonez, Ht: 5 ft 0 in Wt: 147 lbs BSA: 1.64 m2 HR: 79 bpm BP: 159/103 mmHg Rhythm: NSR Medical History Medications: Levothyroxine,,,,, Aspirin,,,,, Atorvastatin,,,,, Temazepam,,,,, Albuterol,,,,, Famotidine,,,,, Seroquel,,,,, LanTUS,,,,, PriMIDONE,,,,, NovOLIN,,,,, Hydroxyzine,,,,, Mirtazapine,,,,, Stress Test Details Test: LEXISCAN Reason for pharmacologic stress test: physical limitation. HR Resting HR: 79 bpm Max Heart Rate (APMHR): 160 bpm Max HR Achieved: 110 bpm Target HR (85% APMHR): 136 bpm % of APMHR: 69 Recovery HR: 101 bpm BP Resting BP: 159.0/103.0 mmHg Max BP: 161.0/74.0 mmHg Recovery BP: 153.0/171.0 mmHg ECG Resting ECG: NSR Stress ECG: No significant ST changes Arrhythmia: None Clinical Exercise duration: 04:00 min Highest Stage Achieved: Stress ECG Conclusion Symptoms: Mild SOA & head discomfort. No CP. Arrhythmias/Ectopy: None ST-T Changes: No significant ST changes. Conclusion: Unremarkable Lexiscan stress. Myoview images reported separately. Test Summary REST . . . . . . . Resting REST 04:34 . . 79 . 159/103 . . Stage 1 01:00 . . 99 . . . . Stage 2 01:00 . . 108 . 142/ 64 . . Stage 3 01:00 . . 108 . 150/ 62 . . Stage 4 01:00 . . 105 . 143/ 62 . Stop exercise at 04:00 RECOVERY 01:00 . . 109 . . . . RECOVERY 02:00 . . 103 . 161/ 74 . . RECOVERY 03:00 . . 100 . 153/ 71 . . RECOVERY 03:19 . . 105 . 153/ 71 . . Electronically signed by : Allie Zavaleta MD 02/11/2024 11:52:56
[2024-02-08] MEDS: ISOTOPE MYOVIEW (PER STUDY) 1 DOSE IV (10:42)
== END 2024-02-08 23:59 | disposition home or self-care (01) ==
LOC: RAD 06:45
PROVIDERS: PCP Internal Medicine Adolescent Medicine; Visit Provider Nurse Practitioner Family
DX: R07.89 Other chest pain (principal); R06.09 Other forms of dyspnea; I11.9 Hypertensive heart disease without heart failure; I25.10 Atherosclerotic heart disease of native coronary artery without angina pectoris; E78.2 Mixed hyperlipidemia; F17.210 Nicotine dependence, cigarettes, uncomplicated
CPT/HCPCS: 78452; 93017; 93018; A9502; J2785

== ENCOUNTER 2024-02-19 15:26 | Outpatient (POV) | payer MEDICARE, MEDICAID, SELFPAY | END 2024-02-19 23:59 | disposition home or self-care (01) | LOC: SC 15:27 | PROVIDERS: PCP Internal Medicine Adolescent Medicine; Visit Provider Dermatology | DX: Z00.00 Encounter for general adult medical examination without abnormal findings (principal) ==

== ENCOUNTER 2024-02-23 11:15 | Emergency (ER) | payer MEDICARE, MEDICAID, SELFPAY ==
[2024-02-23 11:30] VITALS: BP 151/59; PULSE 102; RESP 20; TEMP 36.7; O2SAT 100; BMI 24.5
--- NOTE | 2024-02-23 11:47 | EXP.UTC ---
Discharge Plan Disposition Patient Disposition: Home, Self-Care Condition: Good Prescriptions Prescriptions: New dextromethorphan polistirex [Delsym 12 hour] 30 mg/5 mL suspension,extended rel 12 hr 10 ml PO Q12H PRN (Reason: cough) Qty: 89 0RF prednisone 10 mg tablet 10 mg PO BID 3 Days Qty: 6 0RF No Action atorvastatin 40 mg tablet 40 mg PO HS Patient Comments: TAKE 1 TABLET BY MOUTH AT BEDTIME NIGHTLY FOR CHOLESTEROL doxycycline hyclate 100 mg capsule 100 mg PO BID Patient Comments: TAKE 1 CAPSULE BY MOUTH TWICE DAILY FOR 10 DAYS quetiapine 300 mg tablet 300 mg PO HS Patient Comments: TAKE 1 TABLET BY MOUTH AT BEDTIME tizanidine 4 mg tablet 4 mg PO DAILY Patient Comments: TAKE 1 TABLET BY MOUTH TWICE DAILY alendronate 70 mg tablet 70 mg PO AM Patient Comments: TAKE 1 TABLET BY MOUTH EVERY 7 DAYS, TAKE IN THE MORNING WITH A FULL GLASS OF WATER, ON AN EMPTY STOMACH, AND DONOT TAKE ANYTHING ELSE BY MOUTH OR LIE DOWN FOR THE NEXT 30 MINUTES desmopressin 0.2 mg tablet 0.2 mg PO DAILY levothyroxine 75 mcg tablet 75 mcg PO DAILY famotidine 20 mg tablet 20 mg PO DAILY primidone 250 mg tablet 250 mg PO HS Patient Comments: TAKE 1 TABLET BY MOUTH ONCE DAILY AT NIGHT hydroxyzine HCl 25 mg tablet 25 mg PO DAILY Patient Comments: TAKE 3 TABLETS BY MOUTH IN THE MORNING THEN 2 TABLETS AT NIGHT mirtazapine 15 mg tablet 15 mg PO HS Patient Comments: TAKE 1 TABLET BY MOUTH EVERY DAY AT BEDTIME GlucaGen HypoKit 1 mg recon soln 1 mg IM ONCE Patient Comments: INJECT 1 MG INTRAMUSCULARLY A ONE TIME DOSE insulin aspart U-100 [Novolog FlexPen U-100 Insulin] 100 unit/mL (3 mL) insulin pen See Rx Instructions .ROUTE .COMPLEX Rx Instructions: . temazepam 22.5 mg capsule 22.5 mg PO DAILY Patient Comments: TAKE 1 CAPSULE BY MOUTH AT BEDTIME insulin glargine [Lantus Solostar U-100 Insulin] 100 unit/mL (3 mL) insulin pen See Rx Instructions .ROUTE .COMPLEX Rx Instructions: . Referrals Follow up/Referrals: Enoch Alonzo MD [Primary Care Provider] - See instructions Activity Restrictions/Add. Instructions Additional Instructions/Restrictions: No sign of a bacterial infection. Likely viral. Viruses can take 7-14 days to run their course. Nasal saline and bulb syringe or nose Gail to remove nasal drainage to help with nasal congestion. Hard to eat, drink, sleep with nasal congestion so important to keep this cleaned out. Monitor temp. Tylenol or Motrin as needed for pain or fever Encourage fluids, water, Gatorade, Powerade, Pedialyte if /toddler/child Warm salt water gargles Warm fluids Sore throat lozenges Sleep elevated Humidifier/vaporizer Follow-up immediately for new or worsening symptoms or no noticeable improvement over the next 48-72 hours. Clinical Impressions Clinical Impression: Upper respiratory infection, Bronchitis Instructions Patient Instructions: DI for Viral Upper Respiratory Infection -- Adult, Acute Bronchitis Discharge ED Provider: Chacha ([facility] [[email or web address] [facility] [place] General Stated complaint: congestion, cough Mode of Arrival: Ambulatory Source of Information: Patient Limitations: No Limitations Time Seen by Provider: 02/23/24 11:47 Description of Symptoms (Recalled from Triage Doc. by RN): PATIENT C/O COUGH AND CONGESTION. SHE STATES SHE SAW HER PCP SUNDAY BUT IS NOT BETTER HEENT Symptoms (Recalled from RN notes): Yes Resp Symptoms (Recalled from RN notes): Yes Skin Symptoms (Recalled from RN notes): No MS Symptoms (Recalled from RN notes): No Functional Status (Recalled from RN notes): WNL History of Present Illness Provider Complaint: 58 yr old female presents for cough and congestion. pt states she saw her pcp on sunday dx with upper resp infection and given doxy. pt states she still coughing and called again suns they changed her cough med but she still coughing. Related Data Home Medications Medication Instructions Recorded Confirmed alendronate 70 mg tablet 70 mg PO AM 02/23/24 02/23/24 atorvastatin 40 mg tablet 40 mg PO HS 02/23/24 02/23/24 desmopressin 0.2 mg tablet 0.2 mg PO DAILY 02/23/24 02/23/24 doxycycline hyclate 100 mg capsule 100 mg PO BID 02/23/24 02/23/24 famotidine 20 mg tablet 20 mg PO DAILY 02/23/24 02/23/24 glucagon 1 mg solution for 1 mg IM ONCE 02/23/24 02/23/24 injection (GlucaGen HypoKit) hydroxyzine HCl 25 mg tablet 25 mg PO DAILY 02/23/24 02/23/24 insulin aspart U-100 100 unit/mL See Rx Instructions .Route .COMPLEX 02/23/24 02/23/24 (3 mL) subcutaneous pen (Novolog FlexPen U-100 Insulin aspart) insulin glargine 100 unit/mL (3 See Rx Instructions .Route .COMPLEX 02/23/24 02/23/24 mL) subcutaneous pen (Lantus Solostar U-100 Insulin) levothyroxine 75 mcg tablet 75 mcg PO DAILY 02/23/24 02/23/24 mirtazapine 15 mg tablet 15 mg PO HS 02/23/24 02/23/24 primidone 250 mg tablet 250 mg PO HS 02/23/24 02/23/24 quetiapine 300 mg tablet 300 mg PO HS 02/23/24 02/23/24 temazepam 22.5 mg capsule 22.5 mg PO DAILY 02/23/24 02/23/24 tizanidine 4 mg tablet 4 mg PO DAILY 02/23/24 02/23/24 Previous Rx's Medication Instructions Recorded dextromethorphan polistirex 30 10 ml PO Q12H PRN cough #89 mL 02/23/24 mg/5 mL oral susp ext.release 12hr (Delsym 12 hour) prednisone 10 mg tablet 10 mg PO BID 3 days #6 tabs 02/23/24 Allergies Allergy/AdvReac Type Severity Reaction Status Date / Time Penicillins Allergy Severe itching,ciro Verified 02/18/24 13:29 h clindamycin Allergy Verified 02/18/24 13:29 Worker's Comp Is this a Worker's Comp case?: No [facility] Disclaimer: The information contained in this section may have been updated after the patient was seen, as this information can be updated by other users. Medical History (Reviewed 02/23/24 @ 11:49 by Phong Burnham ([facility] [[email or web address] [employer]) Atypical angina Encounter for screening for malignant neoplasm of lung Dyspnea on exertion Smoking greater than 30 pack years Insomnia Mood disorder Diastolic dysfunction Hyperlipidemia Hypertension Diabetes mellitus Tobacco dependence syndrome CAD (coronary atherosclerotic disease) Cellulitis Insulin pump in place Thyroid disease Diabetes Surgical History (Reviewed 02/23/24 @ 11:49 by Phong Burnham ([facility] [[email or web address] [employer]) History of surgery on lower extremity H/O section H/O knee surgery Stented coronary artery Family History (Reviewed 02/23/24 @ 11:49 by Phong Burnham ([facility] [[email or web address] [employer]) No significant family history Diabetes FHx: mental illness Cancer Stroke Social History (Reviewed 02/23/24 @ 11:49 by Phong Burnham ([facility] [[email or web address] [employer]) Smoking Status: Current every day smoker tobacco type: cigarettes packs per day: 1 quit status: considering quitting alcohol intake: former substance use type: denies use current occupational status: disabled Travel in the last 8 weeks: Inside the [employer] States household members: significant other housing: apartment lives independently: Yes marital status: life partner number of children: 1 ROS Obtained: Yes All systems reviewed & no additional complaints except as documented Constitutional Constitutional: Reports system reviewed and no additional complaints, except as documented Eyes Eyes: Reports system reviewed and no additional complaints, except as documented ENT Ears, Nose, Mouth, and Throat: Reports system reviewed and no additional complaints, except as documented, Reports as per HPI, Reports nasal congestion and Reports nasal discharge Cardiovascular Cardiovascular: Reports system reviewed and no additional complaints, except as documented Respiratory Respiratory: Reports system reviewed and no additional complaints, except as documented, Reports as per HPI, Reports cough and Reports non-productive cough Gastrointestinal Gastrointestingal: Reports system reviewed and no additional complaints, except as documented Musculoskeletal Musculoskeletal: Reports system reviewed and no additional complaints, except as documented Integumentary/Breasts Skin/Breast: Reports system reviewed and no additional complaints, except as documented Neurologic Neurologic: Reports system reviewed and no additional complaints, except as documented Endocrine Endocrine: Reports system reviewed and no additional complaints, except as documented Allergic/Immunologic Allergic/Immunologic: Reports system reviewed and no additional complaints, except as documented Physical Exam General General appearance: alert and in no apparent distress Eye Eye exam: Present normal appearance ENT ENT exam: Present normal exam, normal oropharynx, mucous membranes moist and TM's normal bilaterally Respiratory Respiratory exam: Present wheezes Cardiovascular Cardiovascular exam: Present regular rate and normal rhythm Neurological Exam Neurological exam: Present alert and oriented X3 Skin Skin exam: Present warm and intact Medical Decision Making Medical Records Medical records reviewed: Yes I reviewed the patient's medical records. Gamaliel Inquiry Pt receiving controlled substance: No Gamaliel was queried for this patient: No Vital Signs: 02/23/24 11:30 Temperature 98.1 F Temperature Source Oral Pulse Rate [Left Brachial] 102 H Respiratory Rate 20 Blood Pressure [Left Arm] 151/59 H Blood Pressure Mean [Left Arm] 89 Blood Pressure Source [Left Arm] Automatic Cuff Blood Pressure Position [Left Arm] Sitting 02 Sat by Pulse Oximetry 100 Oxygen Delivery Method Room Air
[2024-02-23 11:54] VITALS: BP 151/59; PULSE 102; RESP 20; TEMP 36.7; O2SAT 100
[2024-02-23 12:13] LABS: Adenovirus,PCR Not Detected (NotDetected); Bordetella Pertussis Not Detected (NotDetected); Chlamydophila Pneumoniae, PCR Not Detected (NotDetected); Coronavirus 19, PCR Not Detected (NotDetected); Coronavirus 229E Not Detected (NotDetected); Coronavirus NL63 Not Detected (NotDetected); Coronavirus OC43 Not Detected (NotDetected); Coronovirus HKU1,PCR Not Detected (NotDetected); Human Metapneumovirus Not Detected (NotDetected); Influenza A, PCR Not Detected (NotDetected); Influenza AH1, 2009 Not Detected (NotDetected); Influenza AH1, PCR Not Detected (NotDetected); Influenza AH3,PCR Not Detected (NotDetected); Influenza B, PCR Not Detected (NotDetected); Mycoplasma Pneumoniae, PCR Not Detected (NotDetected); Parainfluenza 1, PCR Not Detected (NotDetected); Parainfluenza 2, PCR Not Detected (NotDetected); Parainfluenza 3, PCR Not Detected (NotDetected); Parainfluenza 4, PCR Not Detected (NotDetected); Respiratory Syncytial Virus Not Detected (NotDetected); Rhinovirus/Enterovirus Not Detected (NotDetected)
== END 2024-02-23 11:58 | disposition home or self-care (01) ==
PROVIDERS: Emergency Provider Nurse Practitioner Family; PCP Internal Medicine Adolescent Medicine
DX: J20.9 Acute bronchitis, unspecified (principal); J06.9 Acute upper respiratory infection, unspecified; R05.9 Cough, unspecified
CPT/HCPCS: 87581; 87632; 87635; 87798; 99204; 99212; G0463

== ENCOUNTER 2024-02-26 11:23 | Outpatient (CLI) | payer MEDICARE, MEDICAID, SELFPAY ==
--- NOTE | 2024-02-26 11:31 | XR_ITS ---
FINAL REPORT CLINICAL HISTORY: PERSISTANT COUGH COMPARISON: 04/24/2023 FINDINGS: There are underlying emphysematous changes. No acute pulmonary density is present. No significant pleural effusion. There is no pneumothorax. The heart is normal in size. The mediastinum is unremarkable. IMPRESSION: Emphysema without acute process. Reviewed, Interpreted and Dictated by Olivia Oh MD Transcribed by Gaviota Shaw Authenticated and [facility]
== END 2024-02-26 23:59 | disposition home or self-care (01) ==
LOC: RAD 11:25
PROVIDERS: PCP Internal Medicine Adolescent Medicine; Visit Provider Nurse Practitioner Family
DX: R05.3 Chronic cough (principal)
CPT/HCPCS: 71046

== ENCOUNTER 2024-03-07 12:04 | Outpatient (CLI) | payer MEDICARE, MEDICAID, SELFPAY ==
[2024-03-07 13:07] LABS: Alanine Aminotransferase 664 U/L (12-78); Albumin Level 3.4 g/dl (3.5-5.0); Albumin/Globulin Ratio 1.3 (1.1-1.8); Alkaline Phosphatase 314 U/L (38-126); Anion Gap 10.6 mEq/L (5-15); Aspartate Amino Transferase 473 U/L (14-36); Bilirubin,Total 0.5 mg/dl (0.2-1.3); Blood Urea Nitrogen 25 mg/dl (7-17); Calcium 9.3 mg/dl (8.4-10.2); Carbon Dioxide 26 mmol/L (22.0-30.0); Chloride 97 mmol/L (98-107); Estimated Glomerular Filt Rate 64 ml/min (>60); GFR (African American) 77 ML/MIN (>60); Globulin 2.7 g/dL (1.3-3.2); Glucose 249 mg/dl (74-100); Lipase 114 U/L (23-300); Potassium 4.6 mmoL/L (3.5-5.1); Sodium 129 mmol/L (136-145); Total Protein,Serum 6.1 g/dl (6.3-8.2)
== END 2024-03-07 23:59 | disposition home or self-care (01) ==
LOC: LAB 12:05
PROVIDERS: PCP Internal Medicine Adolescent Medicine; Visit Provider Internal Medicine Adolescent Medicine
DX: R74.01 Elevation of levels of liver transaminase levels (principal); K85.90 Acute pancreatitis without necrosis or infection, unspecified
CPT/HCPCS: 36415; 80053; 83690

== ENCOUNTER 2024-03-12 10:02 | Outpatient (CLI) | payer MEDICARE, MEDICAID, SELFPAY ==
[2024-03-12 10:46] LABS: Basophils # 0.1 K/mm3 (0-0.2); Basophils % 0.9 % (0.1-2.0); Eosinophils # 0.1 K/mm3 (0.0-0.4); Eosinophils % 2.1 % (0.1-12.0); Hematocrit 38.8 % (37.0-47.0); Hemoglobin 12.7 g/dL (12.2-16.2); Lymphocytes # 1.9 K/mm3 (0.7-4.5); Lymphocytes % 30.7 % (10-50); Mean Corpuscular HGB Conc 32.8 g/dL (31.8-35.4); Mean Corpuscular Hemoglobin 31.8 pg (27.0-31.2); Mean Corpuscular Volume 96.9 fl (81-99); Mean Platelet Volume 8.7 fl (7.4-10.4); Monocytes # 0.4 K/mm3 (0.1-1.0); Monocytes % 5.8 % (1.7-9.3); Neutrophils # 3.7 K/mm3 (1.8-7.8); Neutrophils % 60.6 % (37.0-80.0); Platelet Count 200 K/mm3 (142-424)
[2024-03-12 11:47] LABS: Alanine Aminotransferase 152 U/L (12-78); Albumin Level 3.3 g/dl (3.5-5.0); Albumin/Globulin Ratio 1.2 (1.1-1.8); Alkaline Phosphatase 182 U/L (38-126); Amylase 75 U/L (30-110); Anion Gap 7.6 mEq/L (5-15); Aspartate Amino Transferase 46 U/L (14-36); Bilirubin,Total 0.4 mg/dl (0.2-1.3); Blood Urea Nitrogen 15 mg/dl (7-17); Calcium 9.2 mg/dl (8.4-10.2); Carbon Dioxide 27 mmol/L (22.0-30.0); Chloride 97 mmol/L (98-107); Estimated Glomerular Filt Rate 85 ml/min (>60); GFR (African American) 103 ML/MIN (>60); Globulin 2.7 g/dL (1.3-3.2); Glucose 208 mg/dl (74-100); Lipase 122 U/L (23-300); Potassium 4.6 mmoL/L (3.5-5.1); Sodium 127 mmol/L (136-145)
== END 2024-03-12 23:59 | disposition home or self-care (01) ==
LOC: LAB 10:03
PROVIDERS: PCP Internal Medicine Adolescent Medicine; Visit Provider Nurse Practitioner Family
DX: K80.20 Calculus of gallbladder without cholecystitis without obstruction (principal); R74.01 Elevation of levels of liver transaminase levels; K85.90 Acute pancreatitis without necrosis or infection, unspecified
CPT/HCPCS: 36415; 80053; 82150; 83690; 85025

== ENCOUNTER 2024-04-03 11:53 | Observation (INO) | payer MEDICARE, MEDICAID, SELFPAY ==
[2024-04-03 11:55] VITALS: BP 168/71; PULSE 101; RESP 18; TEMP 37.1; O2SAT 98; BMI 25.7
[2024-04-03 12:25] LABS: Eosinophils # 0.1 K/mm3 (0.0-0.4); Eosinophils % 1.3 % (0.1-12.0); Hemoglobin 13.1 g/dL (12.2-16.2); Lymphocytes % 21.6 % (10-50); Mean Corpuscular HGB Conc 32.7 g/dL (31.8-35.4); Mean Corpuscular Hemoglobin 31.2 pg (27.0-31.2); Mean Corpuscular Volume 95.3 fl (81-99); Monocytes # 0.3 K/mm3 (0.1-1.0); Monocytes % 5.4 % (1.7-9.3); Neutrophils # 3.3 K/mm3 (1.8-7.8); Neutrophils % 70.7 % (37.0-80.0); Platelet Count 249 K/mm3 (142-424); Red Cell Distribution Width 14.5 % (11.5-17.5); White Blood Count 4.7 K/mm3 (4.8-10.8)
[2024-04-03 12:34] LABS: Chloride 89 mmol/L (98-107)
[2024-04-03 12:35] LABS: Albumin Level 3.9 g/dl (3.5-5.0); Potassium 4.8 mmoL/L (3.5-5.1); Sodium 119 mmol/L (136-145)
[2024-04-03 12:37] LABS: Blood Urea Nitrogen 19 mg/dl (7-17); Creatinine Clearance Estimated 83 mL/min (50-200); Estimated Glomerular Filt Rate 73 ml/min (>60); GFR (African American) 89 ML/MIN (>60)
--- NOTE | 2024-04-03 12:37 | HMH.EDGENADL ---
Discharge Plan Disposition Patient Disposition: Admitted Clinical Impressions Clinical Impression: Hyponatremia Discharge ED Provider: Regis Sevilla General Adult HPI General Chief complaint: Recheck/Abnormal Lab/Rx Stated complaint: ab labs, sent by Time Seen by Provider: 04/03/24 12:18 Mode of Arrival: Ambulatory Source of Information: Patient Limitations: No Limitations Description of Symptoms (Recalled from ER Triage Doc. by RN): c/o low sodium from a lab draw while preparing for a bladder sling. Pt states that she is having no symptoms at this time History of Present Illness HPI narrative: Lan Garcia is a 58F who presents to the emergency department for complaints of low sodium. She has a history of diabetes mellitus, denies alcohol use. Patient states that she was being seen at [facility] today as she was supposed to get a bladder sling, however when lab work was obtained, it showed a sodium of 118 and her procedure was canceled. She was going to be admitted to the hospital, however home is here in [place] so she stated that she wanted to come here and agreed to come to the emergency department immediately upon arrival. Patient states that her sodium has been low in the past, most recently 129 in February but denies any known reason as to why. She denies any vomiting, diarrhea, excessive water intake, alcohol use. She states that she has no abdominal pain, chest pain, seizures. Related Data Home Medications ?Medication ?Instructions ?Recorded ?Confirmed alendronate 70 mg tablet 70 mg PO WEEKLY 02/23/24 04/03/24 desmopressin 0.2 mg tablet 0.2 mg PO DAILY 02/23/24 04/03/24 famotidine 20 mg tablet 20 mg PO BID 02/23/24 04/03/24 hydroxyzine HCl 25 mg tablet 50 mg PO HS 02/23/24 04/03/24 insulin aspart U-100 100 unit/mL See Rx Instructions .Route .COMPLEX 02/23/24 04/03/24 (3 mL) subcutaneous pen (Novolog FlexPen U-100 Insulin aspart) insulin glargine 100 unit/mL (3 9 unit SQ BID 02/23/24 04/03/24 mL) subcutaneous pen (Lantus Solostar U-100 Insulin) levothyroxine 75 mcg tablet 75 mcg PO DAILY 02/23/24 04/03/24 primidone 250 mg tablet 250 mg PO HS 02/23/24 04/03/24 temazepam 22.5 mg capsule 22.5 mg PO HS 02/23/24 04/03/24 tizanidine 4 mg tablet 4 mg PO BID 02/23/24 04/03/24 hydroxyzine HCl 25 mg tablet 75 mg PO DAILY 03/05/24 04/03/24 vibegron 75 mg tablet (Gemtesa) 75 mg PO HS 03/06/24 04/03/24 dextromethorphan polistirex 30 10 ml PO Q12HP PRN Cough 04/03/24 04/03/24 mg/5 mL oral susp ext.release 12hr (Cough DM ER) linaclotide 290 mcg capsule 290 mcg PO DAILY 04/03/24 04/03/24 (Linzess) mirtazapine 30 mg tablet (Remeron) 30 mg PO HS 04/03/24 04/03/24 Previous Rx's ?Medication ?Instructions ?Recorded inclisiran 284 mg/1.5 mL 284 mg (1.5 mL) SQ [id number] #1.5 mL 03/18/24 subcutaneous syringe (Leqvio) valsartan 80 mg tablet 80 mg PO DAILY #30 tabs 03/24/24 quetiapine 200 mg tablet (Seroquel) 200 mg PO HS #30 tabs 03/31/24 Allergies Allergy/AdvReac Type Severity Reaction Status Date / Time Penicillins Allergy Severe itching,ciro Verified 03/24/24 11:16 h clindamycin Allergy Verified 03/24/24 11:16 atorvastatin [From Lipitor] AdvReac Intermediate liver Verified 03/24/24 11:16 injury PFSH PFS Disclaimer: The information contained in this section may have been updated after the patient was seen, as this information can be updated by other users. Medical History Atypical angina Encounter for screening for malignant neoplasm of lung Dyspnea on exertion Smoking greater than 30 pack years Insomnia Mood disorder Diastolic dysfunction Hyperlipidemia Hypertension Diabetes mellitus Tobacco dependence syndrome CAD (coronary atherosclerotic disease) Cellulitis Insulin pump in place Thyroid disease Diabetes Surgical History History of surgery on lower extremity H/O section H/O knee surgery Stented coronary artery Family History Other Cancer Diabetes FHx: mental illness No significant family history Stroke Social History Smoking Status: Current every day smoker tobacco type: cigarettes packs per day: 1 quit status: considering quitting alcohol intake: former substance use type: denies use current occupational status: disabled Travel in the last 8 weeks: Inside the [employer] States household members: significant other housing: apartment lives independently: Yes marital status: life partner number of children: 1 ROS Obtained: Yes All systems reviewed & no additional complaints except as documented Physical Exam General General appearance: alert and in no apparent distress Head Head exam: atraumatic Eye Eye exam: Present normal appearance ENT ENT exam: Present normal external ear exam Neck Neck exam: Present full ROM Chest Chest inspection: Present symmetric chest wall rise Respiratory Respiratory exam: Present normal lung sounds bilaterally; Absent respiratory distress Cardiovascular Cardiovascular exam: Present regular rate and normal rhythm Abdominal Exam Abdominal exam: Present soft; Absent tenderness or guarding Extremities Exam Extremities exam: Present normal inspection Back Exam Back exam: Present normal inspection Neurological Exam Neurological exam: Present alert and oriented X3 Psychiatric Psychiatric exam: Present normal affect Skin Skin exam: Present warm and dry Medical Decision Making Medical Records Medical records reviewed: Yes I reviewed the patient's medical records. Gamaliel Inquiry Pt receiving controlled substance: No Vital Signs: 04/03/24 11:55 04/03/24 14:38 Temperature 98.8 F 98.8 F Temperature Source Oral Oral Pulse Rate 101 H Pulse Rate [Left Radial] 101 H Respiratory Rate 18 18 Blood Pressure 168/71 H Blood Pressure [Right Arm] 168/71 H Blood Pressure Mean [Right Arm] 103 Blood Pressure Source Automatic Cuff Blood Pressure Source [Right Arm] Automatic Cuff Blood Pressure Position Sitting Blood Pressure Position [Right Arm] Sitting 02 Sat by Pulse Oximetry 98 Oxygen Delivery Method Room Air Room Air Lab Data Lab Results 04/03/24 12:19: WBC 4.7 L, RBC 4.20, Hgb 13.1, Hct 40.0, MCV 95.3, MCH 31.2, MCHC 32.7, RDW 14.5, Plt Count 249, MPV 8.0, Neut % (Auto) 70.7, Lymph % (Auto) 21.6, [place] % (Auto) 5.4, Eos % (Auto) 1.3, Baso % (Auto) 1.0, Neut # (Auto) 3.3, Lymph # (Auto) 1.0, [place] # (Auto) 0.3, Eos # (Auto) 0.1, Baso # (Auto) 0.0, Sodium 119 L, Potassium 4.8, Chloride 89 L, Carbon Dioxide 29, Anion Gap 5.8, BUN 19 H, Creatinine 0.80, Estimated Creat Clear 83, Estimated GFR 73, Est GFR ( Amer) 89, Glucose 227 H, Calcium 8.4, Total Bilirubin 0.4, AST 30, ALT 26, Alkaline Phosphatase 141 H, Total Protein 6.8, Albumin 3.9, Globulin 2.9, Albumin/Globulin Ratio 1.3 04/03/24 12:19 04/03/24 14:42 Orders (Tests/Meds): ED MEDICATIONS Generic Name Dose Route Start Last Admin Trade Name Freq PRN Reason Stop Dose Admin Famotidine 20 mg 04/03/24 21:00 Famotidine 20mg Tablet PO 05/03/24 20:59 BID [facility] Hydroxyzine Pamoate 75 mg 04/04/24 09:00 Hydroxyzine Pamoate 25mg Capsule PO 05/04/24 08:59 DAILY SYED Hydroxyzine Pamoate 50 mg 04/03/24 21:00 Hydroxyzine Pamoate 25mg Capsule PO 05/03/24 20:59 HS [facility] Insulin Glargine 9 unit 04/03/24 21:00 Insulin Glargine 100 Units/Ml 3ml Flexpen SQ 05/03/24 20:59 BID [facility] Insulin Human Lispro 0 unit 04/03/24 16:30 Humalog 100 Units/Ml 10ml Vial (Ssi) SQ 05/03/24 16:29 ACHS [facility] Protocol Irbesartan 75 mg 04/04/24 09:00 Irbesartan 75mg Tablet PO 05/04/24 08:59 DAILY SYED Levothyroxine Sodium 75 mcg 04/04/24 07:00 Levothyroxine 75mcg (0.075mg) Tab PO 05/04/24 06:59 DAILYDM [facility] Mirtazapine 30 mg 04/03/24 21:00 Mirtazapine 15 Mg Tablet PO 05/03/24 20:59 HS [facility] Nicotine 14 mg 04/03/24 15:58 Nicotine 14mg/24hrs Patch TD 05/03/24 15:57 DAILYP PRN Nicotine Cravings Non-Formulary Medication 290 mcg 04/04/24 09:00 Linaclotide [Linzess] PO 05/04/24 08:59 DAILY SYED Primidone 250 mg 04/03/24 21:00 Primidone 250mg Tablet PO 05/03/24 20:59 HS [facility] Quetiapine Fumarate 200 mg 04/03/24 21:00 Quetiapine 100mg Tablet PO 05/03/24 20:59 HS [facility] Sodium Chloride 1,000 mg 04/03/24 16:00 Sodium Chloride 1,000mg Tablet PO 04/03/24 22:01 Q6H [facility] Temazepam 15 mg 04/03/24 16:03 Temazepam 15mg Capsule PO 05/03/24 16:02 HSP PRN Sleep Discontinued Medications Generic Name Dose Route Start Last Admin Trade Name Freq PRN Reason Stop Dose Admin Sodium Chloride 1,000 mls @ 999 mls/hr 04/03/24 12:50 04/03/24 13:30 Sod Chlor 0.9% 1000ml Bag IV 04/03/24 13:50 999 mls/hr .Q1H1M ONE Administration ORDERS Category Date Time Status Basic Metabolic Panel Routine Lab 04/03/24 14:42 Completed CMP [Comprehensive Metabolic Panel] Stat Lab 04/03/24 12:19 Completed Complete Blood Count Auto Diff AMLAB Lab 04/04/24 06:00 Ordered Complete Blood Count Auto Diff Stat Lab 04/03/24 12:19 Completed Comprehensive Metabolic Panel AMLAB Lab 04/04/24 06:00 Ordered Magnesium AMLAB Lab 04/04/24 06:00 Ordered Sodium,Urine Random Stat Lab 04/03/24 14:26 Ordered Medical Decision Narrative: This is a 58-year-old female with history of diabetes mellitus, hypertension, coronary artery disease, mood disorder presenting to the emergency department for evaluation of hyponatremia. Patient states that she was prepared to have a bladder sling procedure performed today at an outside facility, however they found her sodium level to be 118. They wanted her to go to [facility] emergency department, however she lives in [place] and preferred to come here. She then left there and came directly to the [facility] emergency department for evaluation. She denies any seizure-like activity, changes in her medication, excessive amounts of water intake, no alcohol use, abdominal pain, nausea, vomiting or diarrhea. Differential diagnosis includes: Medication side effect, GI losses, osmotic diuresis, renal tubular acidosis, aldosterone deficiency, nephrotic syndrome, cirrhosis, CHF, SIADH, hypothyroidism. Patient's workup in the emergency department included CBC, CMP. She was given 1 L of normal saline in the emergency department Patient's labs are significant for sodium of 119, potassium 4.1, CBC grossly unremarkable and nonactionable Based on patient's medication review, it appears she is taking desmopressin. This could be contributing to her hyponatremia. Given her significant hyponatremia, is felt that she would benefit from admission for slow correction of her hyponatremia. Discussions were had with the hospitalist service regarding the case and they agreed to admit the patient. Patient was amenable to this plan as well and she was subsequently admitted for further management. Critical Care Critical Care Time Critical Care Time: No
[2024-04-03 12:38] LABS: Alanine Aminotransferase 26 U/L (12-78); Albumin/Globulin Ratio 1.3 (1.1-1.8); Alkaline Phosphatase 141 U/L (38-126); Anion Gap 5.8 mEq/L (5-15); Aspartate Amino Transferase 30 U/L (14-36); Bilirubin,Total 0.4 mg/dl (0.2-1.3); Calcium 8.4 mg/dl (8.4-10.2); Carbon Dioxide 29 mmol/L (22.0-30.0); Globulin 2.9 g/dL (1.3-3.2); Glucose 227 mg/dl (74-100); Total Protein,Serum 6.8 g/dl (6.3-8.2)
[2024-04-03] MEDS: 0.9 % SODIUM CHLORIDE 1000ML 1,000 ML 999 ML IV (13:30)
--- NOTE | 2024-04-03 14:31 | P.HP_ITS ---
History of Present Illness *Admission Date: 04/03/24 *Reason for visit:: Abnormal labs *History of present illness: Ms. Garcia is a 58-year-old female with tobacco use disorder, mood disorder, insulin-dependent diabetes, who presented to the ER with concern for abnormal labs on preop testing prior to bladder sling. States she was at [facility] where she was informed her labs were abnormal with a low sodium. She came to the ER at [facility] due to preference of our facility being closer to her home. On arrival, sodium consistently low at 119. Has had low sodiums in the high 20s previously. Review of medication shows that she is on desmopressin. This is to keep her from having incontinence which is one of the reasons she is having a bladder sling performed. She denies any confusion, dizziness, weakness, chest pain, shortness of breath. Denies alcohol intake. Does smoke. No tremor or seizure. Kidney function and electrolytes otherwise normal on presentation. Sodium elevated to 27. Normal white count. Medicine consulted for admission and further management. On arrival to the floor, she is alert and oriented x 4. Stable on room air. Has received 1 L of normal saline. Repeat sodium up to 121. PFSH PFS Disclaimer: The information contained in this section may have been updated after the patient was seen, as this information can be updated by other users. Medical History Atypical angina Encounter for screening for malignant neoplasm of lung Dyspnea on exertion Smoking greater than 30 pack years Insomnia Mood disorder Diastolic dysfunction Hyperlipidemia Hypertension Diabetes mellitus Tobacco dependence syndrome CAD (coronary atherosclerotic disease) Cellulitis Insulin pump in place Thyroid disease Diabetes Surgical History History of surgery on lower extremity H/O section H/O knee surgery Stented coronary artery Family History Other Cancer Diabetes FHx: mental illness No significant family history Stroke Social History Smoking Status: Current every day smoker tobacco type: cigarettes packs per day: 1 quit status: considering quitting alcohol intake: former substance use type: denies use current occupational status: disabled Travel in the last 8 weeks: Inside the [place] household members: significant other housing: apartment lives independently: Yes marital status: life partner number of children: 1 Review of Systems Review of Systems Review of systems (narrative): 14 point review of systems performed, pertinent positives and negatives as per HPI Meds Home Medications and Allergies Home Medications ?Medication ?Instructions ?Recorded ?Confirmed ?Type alendronate 70 mg tablet 70 mg PO WEEKLY 02/23/24 04/03/24 History desmopressin 0.2 mg tablet 0.2 mg PO DAILY 02/23/24 04/03/24 History famotidine 20 mg tablet 20 mg PO BID 02/23/24 04/03/24 History hydroxyzine HCl 25 mg tablet 50 mg PO HS 02/23/24 04/03/24 History insulin aspart U-100 100 unit/mL See Rx Instructions .Route .COMPLEX 02/23/24 04/03/24 History (3 mL) subcutaneous pen (Novolog FlexPen U-100 Insulin aspart) insulin glargine 100 unit/mL (3 9 unit SQ BID 02/23/24 04/03/24 History mL) subcutaneous pen (Lantus Solostar U-100 Insulin) levothyroxine 75 mcg tablet 75 mcg PO DAILY 02/23/24 04/03/24 History primidone 250 mg tablet 250 mg PO HS 02/23/24 04/03/24 History temazepam 22.5 mg capsule 22.5 mg PO HS 02/23/24 04/03/24 History tizanidine 4 mg tablet 4 mg PO BID 02/23/24 04/03/24 History hydroxyzine HCl 25 mg tablet 75 mg PO DAILY 03/05/24 04/03/24 History vibegron 75 mg tablet (Gemtesa) 75 mg PO HS 03/06/24 04/03/24 History inclisiran 284 mg/1.5 mL 284 mg (1.5 mL) SQ [id number] #1.5 mL 03/18/24 04/03/24 Rx subcutaneous syringe (Leqvio) valsartan 80 mg tablet 80 mg PO DAILY #30 tabs 03/24/24 04/03/24 Rx quetiapine 200 mg tablet (Seroquel) 200 mg PO HS #30 tabs 03/31/24 04/03/24 Rx dextromethorphan polistirex 30 10 ml PO Q12HP PRN Cough 04/03/24 04/03/24 History mg/5 mL oral susp ext.release 12hr (Cough DM ER) linaclotide 290 mcg capsule 290 mcg PO DAILY 04/03/24 04/03/24 History (Linzess) mirtazapine 30 mg tablet (Remeron) 30 mg PO HS 04/03/24 04/03/24 History New Prescriptions to Start Prescriptions: Allergies Allergy/AdvReac Type Severity Reaction Status Date / Time Penicillins Allergy Severe itching,ciro Verified 03/24/24 11:16 h clindamycin Allergy Verified 03/24/24 11:16 atorvastatin [From Lipitor] AdvReac Intermediate liver Verified 03/24/24 11:16 injury Exam Data for Last 24 hours Vital signs and Labs for Last 24 Hours: Temp Pulse Resp BP Pulse Ox O2 Del Method 98.8 F 101 H 18 168/71 H 98 Room Air 04/03/24 11:55 04/03/24 11:55 04/03/24 11:55 04/03/24 11:55 04/03/24 11:55 04/03/24 11:55 Laboratory Results - last 24 hr 04/03/24 12:19: WBC 4.7 L, RBC 4.20, Hgb 13.1, Hct 40.0, MCV 95.3, MCH 31.2, MCHC 32.7, RDW 14.5, Plt Count 249, MPV 8.0, Neut % (Auto) 70.7, Lymph % (Auto) 21.6, [place] % (Auto) 5.4, Eos % (Auto) 1.3, Baso % (Auto) 1.0, Neut # (Auto) 3.3, Lymph # (Auto) 1.0, [place] # (Auto) 0.3, Eos # (Auto) 0.1, Baso # (Auto) 0.0, Sodium 119 L, Potassium 4.8, Chloride 89 L, Carbon Dioxide 29, Anion Gap 5.8, BUN 19 H, Creatinine 0.80, Estimated Creat Clear 83, Estimated GFR 73, Est GFR ( Amer) 89, Glucose 227 H, Calcium 8.4, Total Bilirubin 0.4, AST 30, ALT 26, Alkaline Phosphatase 141 H, Total Protein 6.8, Albumin 3.9, Globulin 2.9, Albumin/Globulin Ratio 1.3 I & O for Last 24 hours: Intake & Output 03/31/24 04/01/24 04/02/24 04/03/24 23:59 23:59 23:59 23:59 Weight 70.307 kg Constitutional Constitutional: no acute distress, average body habitus, chronically ill appearing and cooperative *Routine HEENT Exam Head: Present normocephalic Eye: Present EOMI and PERRL ENT: Present mucous membranes moist *Routine Neck Exam Neck: Present supple; Absent lymphadenopathy Routine Chest/Breast/Axilla Exam Chest wall: Absent tenderness *Routine Respiratory Exam Respiratory: Present CTA bilaterally; Absent respiratory distress, rhonchi, wheezes or crackles *Routine Cardiovascular Exam Cardiovascular: Present RRR *Routine Abdominal Exam Abdominal: Present soft and normoactive bowel sounds; Absent tenderness or distended *Routine Rectal Exam Rectal:: deferred *Routine Genitalia Exam Genitalia:: deferred *Routine Extremities Exam Extremities: Absent cyanosis, clubbing or edema *Routine Skin Exam Skin: Present warm; Absent rash *Routine Neurological Exam Neurological: Present alert, oriented X3 and moving all extremities; Absent altered mental status Assessment and Plan *Assessment and plan (1) Hyponatremia: Status: Acute Category: Medical Code(s): E87.1 - Hypo-osmolality and hyponatremia (2) Diabetes mellitus: Status: Chronic Qualifiers: Diabetes mellitus type: other specified (including NAIMA) Diabetes mellitus terminal 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 insulin use: unspecified terminal 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 insulin use status Diabetes mellitus complication status: with other specified complication Qualified Code(s): E13.69 - Other specified diabetes mellitus with other specified complication Category: Medical Code(s): E11.9 - Type 2 diabetes mellitus without complications (3) Insomnia: Status: Chronic Qualifiers: Insomnia type: due to medical condition Qualified Code(s): G47.01 - Insomnia due to medical condition Category: Medical Code(s): G47.00 - Insomnia, unspecified (4) Tobacco dependence syndrome: Status: Chronic Category: Medical Code(s): F17.200 - Nicotine dependence, unspecified, uncomplicated (5) Hyperlipidemia: Status: Acute Qualifiers: Hyperlipidemia type: mixed hyperlipidemia Qualified Code(s): E78.2 - Mixed hyperlipidemia Category: Medical Code(s): E78.5 - Hyperlipidemia, unspecified (6) Hypertension: Status: Chronic Qualifiers: Hypertension type: primary hypertension Qualified Code(s): I10 - Essential (primary) hypertension Category: Medical Code(s): I10 - Essential (primary) hypertension (7) Smoking greater than 30 pack years: Status: Acute Category: Social Hx Code(s): F17.210 - Nicotine dependence, cigarettes, uncomplicated (8) Mood disorder: Status: Chronic Category: Medical Code(s): F39 - Unspecified mood [affective] disorder Plan 58-year-old female with abnormal labs during preop assessment [facility]. Found to have low sodium. Was sent to the ER for further evaluation. On workup, found have sodium of 119. Discussed case with ER physician, request admission for sodium correction and monitoring overnight. I agreed to admit for further management. Patient denies any confusion, weakness, dizziness. Review of her medication shows that she is on desmopressin and has been for some time due to incontinence. She takes it nightly. Concerned that this is medication side effect. Will hold this medication at this time. Problems addressed as follows: Hyponatremia -Sodium 119 on presentation, received a liter of normal saline in the ER. Repeat 2 hours later with a sodium of 121. Will hold her desmopressin. Administer sodium chloride tablets 1000 mg x 2 6 hours apart. -Repeat BMP ordered for 10 PM, CMP ordered for 6 AM. Monitoring every 8 hours. Correction goal 8 to 10 mEq/day. -Urine sodium pending Insulin-dependent diabetes -A1c 8.1 in the beginning of the month. Will continue basal insulin with 9 units insulin pain twice daily and sliding scale insulin and fingersticks ACHS -Glucose 227 on admission. Mood disorder: Continue home regimen including hydroxyzine 25 mg nightly, mirtazapine 15 mg nightly, Seroquel 30 mg nightly Insomnia: Continue temazepam 22.5 mg nightly Hypothyroid: Continue levothyroxine 75 mcg daily, TSH 2.29 one-month ago Tobacco use disorder: Smokes half pack a day, initiate 14 mg patch daily as needed Full code Holding anticoagulation, independently mobile Diabetic diet
--- NOTE | 2024-04-03 14:32 | PC.NURSE ---
pt admitted to room 208.
[2024-04-03 14:38] VITALS: BP 168/71; PULSE 101; RESP 18; TEMP 37.1; O2SAT 98
--- NOTE | 2024-04-03 14:38 | PC.NURSE ---
Report given to HERBIE Kamara on Med Surg.
--- NOTE | 2024-04-03 14:45 | HMH.PHAINT1 ---
Pharmacy Intervention Comments: MEDICATION RECONCILIATION COMPLETED ON PATIENT USING EXTERNAL FILL HISTORY FROM PHARMACY AND LISTS FROM BEHAVIORAL HEALTH/CARDIOLOGY OFFICES. -ILENE LOGAND
[2024-04-03 14:51] LABS: Chloride 92 mmol/L (98-107); Potassium 4.1 mmoL/L (3.5-5.1); Sodium 121 mmol/L (136-145)
[2024-04-03 14:54] LABS: Anion Gap 5.1 mEq/L (5-15); Blood Urea Nitrogen 18 mg/dl (7-17); Carbon Dioxide 28 mmol/L (22.0-30.0); Creatinine Clearance Estimated 95 mL/min (50-200); Estimated Glomerular Filt Rate 85 ml/min (>60); GFR (African American) 103 ML/MIN (>60)
[2024-04-03 14:55] LABS: Glucose 124 mg/dl (74-100)
[2024-04-03 14:57] VITALS: BP 164/73; PULSE 76; RESP 18; TEMP 36.9; O2SAT 98; BMI 25.9
[2024-04-03] MEDS: SODIUM CHLORIDE 1,000MG TABLET 1000 MG PO ×2 (16:45→22:11)
[2024-04-03] MEDS: humaLOG 100 UNITS/ML 10ML VIAL (SSI) SQ ×2 (17:07→20:44)
[2024-04-03 17:16] LABS: POC Glucose,Bedside 307 (70-110)
--- NOTE | 2024-04-03 17:19 | PC.NURSE ---
A&OX4. TOLERATING RA WELL. HAS BEEN UP AMBULATING IN ROOM AND HALLWAY. NO S/S OF ELECTROLYTE IMBALANCE. NO C/O SINCE ARRIVAL TO FLOOR. CURRENTLY SITTING IN BED EATING SUPPER. URINE SAMPLE NEEDED-PATIENT AWARE AND SPECIMEN CUP LEFT IN BATHROOM. NO NEEDS NOTED AT THIS TIME, VSS.
[2024-04-03 20:00] VITALS: BP 167/84; PULSE 86; RESP 20; TEMP 36.9; O2SAT 97
[2024-04-03] MEDS: FAMOTIDINE 20MG TABLET 20 MG PO (20:41)
[2024-04-03] MEDS: hydrOXYzine pamoate 25MG CAPSULE 50 MG PO (20:41)
[2024-04-03] MEDS: QUETIAPINE 100MG TABLET 200 MG PO (20:42)
[2024-04-03] MEDS: MIRTAZAPINE 15 MG TABLET 30 MG PO (20:42)
[2024-04-03] MEDS: INSULIN GLARGINE 100 UNITS/ML 3ML FLEXPEN 9 UNIT SQ (20:43)
[2024-04-03] MEDS: PRIMIDONE 250MG TABLET 250 MG PO (20:43)
[2024-04-03] MEDS: NAPROXEN 500MG TABLET 500 MG PO (22:23)
[2024-04-03 22:25] LABS: Chloride 97 mmol/L (98-107); Potassium 4.2 mmoL/L (3.5-5.1); Sodium 123 mmol/L (136-145)
[2024-04-03 22:28] LABS: Anion Gap 5.2 mEq/L (5-15); Blood Urea Nitrogen 19 mg/dl (7-17); Calcium 8.4 mg/dl (8.4-10.2); Carbon Dioxide 25 mmol/L (22.0-30.0); Creatinine Clearance Estimated 95 mL/min (50-200); Estimated Glomerular Filt Rate 85 ml/min (>60); GFR (African American) 103 ML/MIN (>60); Glucose 88 mg/dl (74-100)
[2024-04-04 04:00] VITALS: BP 145/62; PULSE 81; RESP 16; TEMP 36.7; O2SAT 98; BMI 24.5
--- NOTE | 2024-04-04 05:26 | PC.NURSE ---
Patient is A&OX4 and has tolerated room air. She has ambulated the halls multiple times throughout the night. She did complain of a headache early in the shift and was treated per MAR. Other then that she has not had any other complaints. Currently asleep with call light within reach.
[2024-04-04 06:16] LABS: Basophils # 0.1 K/mm3 (0-0.2); Basophils % 1.2 % (0.1-2.0); Eosinophils # 0.1 K/mm3 (0.0-0.4); Eosinophils % 1.9 % (0.1-12.0); Hematocrit 39.4 % (37.0-47.0); Lymphocytes # 1.3 K/mm3 (0.7-4.5); Lymphocytes % 24.4 % (10-50); Mean Corpuscular HGB Conc 32.9 g/dL (31.8-35.4); Mean Corpuscular Hemoglobin 31.6 pg (27.0-31.2); Mean Platelet Volume 8.2 fl (7.4-10.4); Monocytes # 0.4 K/mm3 (0.1-1.0); Monocytes % 6.6 % (1.7-9.3); Neutrophils # 3.5 K/mm3 (1.8-7.8); Neutrophils % 65.9 % (37.0-80.0); Platelet Count 275 K/mm3 (142-424); Red Cell Distribution Width 14.8 % (11.5-17.5); White Blood Count 5.3 K/mm3 (4.8-10.8)
[2024-04-04 06:17] LABS: Albumin Level 3.4 g/dl (3.5-5.0); Chloride 98 mmol/L (98-107); Potassium 5.1 mmoL/L (3.5-5.1); Sodium 123 mmol/L (136-145)
[2024-04-04 06:19] LABS: Alanine Aminotransferase 24 U/L (12-78); Aspartate Amino Transferase 31 U/L (14-36); Blood Urea Nitrogen 20 mg/dl (7-17); Creatinine Clearance Estimated 105 mL/min (50-200); Estimated Glomerular Filt Rate 102 ml/min (>60); GFR (African American) 123 ML/MIN (>60)
[2024-04-04 06:20] LABS: Albumin/Globulin Ratio 1.2 (1.1-1.8); Alkaline Phosphatase 174 U/L (38-126); Anion Gap 4.1 mEq/L (5-15); Bilirubin,Total 0.4 mg/dl (0.2-1.3); Carbon Dioxide 26 mmol/L (22.0-30.0); Globulin 2.8 g/dL (1.3-3.2); Glucose 279 mg/dl (74-100); Magnesium 1.8 mg/dl (1.6-2.3); Total Protein,Serum 6.2 g/dl (6.3-8.2)
[2024-04-04] MEDS: LEVOTHYROXINE 75MCG (0.075MG) TAB 75 MCG PO (06:25)
[2024-04-04] MEDS: humaLOG 100 UNITS/ML 10ML VIAL (SSI) SQ ×2 (06:25→11:16)
[2024-04-04 06:26] LABS: POC Glucose,Bedside 298 (70-110)
[2024-04-04 07:30] VITALS: BP 147/58; PULSE 109; RESP 18; TEMP 36.7; O2SAT 96
[2024-04-04] MEDS: SODIUM CHLORIDE 1,000MG TABLET 1000 MG PO (08:49)
[2024-04-04] MEDS: FAMOTIDINE 20MG TABLET 20 MG PO (08:50)
[2024-04-04] MEDS: hydrOXYzine pamoate 25MG CAPSULE 75 MG PO (08:50)
[2024-04-04] MEDS: IRBESARTAN 75MG TABLET 75 MG PO (08:51)
[2024-04-04] MEDS: INSULIN GLARGINE 100 UNITS/ML 3ML FLEXPEN 12 UNIT SQ (09:04)
[2024-04-04 09:13] LABS: POC Glucose,Bedside 254 (70-110)
[2024-04-04 11:17] LABS: POC Glucose,Bedside 203 (70-110)
--- NOTE | 2024-04-04 11:59 | P.DS_ITS ---
General Admission date:: 04/03/24 Discharge date: 04/04/24 HPI HPI HPI: Ms. Garcia is a 58-year-old female with tobacco use disorder, mood disorder, insulin-dependent diabetes, who presented to the ER with concern for abnormal labs on preop testing prior to bladder sling. States she was at [facility] where she was informed her labs were abnormal with a low sodium. She came to the ER at [facility] due to preference of our facility being closer to her home. On arrival, sodium consistently low at 119. Has had low sodiums in the high 20s previously. Review of medication shows that she is on desmopressin. This is to keep her from having incontinence which is one of the reasons she is having a bladder sling performed. She denies any confusion, dizziness, weakness, chest pain, shortness of breath. Denies alcohol intake. Does smoke. No tremor or seizure. Kidney function and electrolytes otherwise normal on presentation. Sodium elevated to 27. Normal white count. Medicine consulted for admission and further management. On arrival to the floor, she is alert and oriented x 4. Stable on room air. Has received 1 L of normal saline. Repeat sodium up to 121. Hospital Course Hospital Course Hospital Course: 58-year-old female with abnormal labs during preop assessment [facility]. Found to have low sodium. Was sent to the ER for further evaluation. On workup, found have sodium of 119. Discussed case with ER physician, request admission for sodium correction and monitoring overnight. I agreed to admit for further management. Patient denies any confusion, weakness, dizziness. Review of her medication shows that she is on desmopressin and has been for some time due to incontinence. She takes it nightly. Concerned that this is medication side effect. Will hold this medication at this time. Saw improvement in sodium with medication changes. Patient remained asymptomatic. Stable to discharge home. Recommend repeat labs in 3 to 4 days to monitor for normalization of sodium. Follow-up with primary care and urology as scheduled. Problems addressed as follows: Hyponatremia -Sodium 119 on presentation, received a liter of normal saline in the ER. Repeat 2 hours later with a sodium of 121. No desmopressin due to urinary issues. Suspect this is the cause of her symptoms. Initiated on sodium chloride tablets 1000 mg twice daily. Repeat labs showed consistent improvement within goal range of 8 to 10 mEq/day. Urine sodium elevated 88. Consistent with inappropriate concentration, suspect secondary to desmopressin/medication induced. Saw improvement in sodium with holding desmopressin. Improved to 128 by time of discharge. Improved 9 points and 24 hours. Insulin-dependent diabetes -A1c 8.1 in the beginning of the month. Continue basal insulin at home dose. Resume home regimen at discharge. Glucose improved to under 200 on day of discharge. Mood disorder: Continue home regimen including hydroxyzine 25 mg nightly, mirtazapine 15 mg nightly, Seroquel 30 mg nightly Insomnia: Continue temazepam 22.5 mg nightly Hypothyroid: Continue levothyroxine 75 mcg daily, TSH 2.29 one-month ago Tobacco use disorder: Smokes half pack a day, initiate 14 mg patch daily as needed during admission. Total time spent on discharge 32 minutes in counseling, documentation, chart review, and direct care with patient. Exam Data for Last 24 hours Vital signs and Labs for Last 24 Hours: Temp Pulse Resp BP Pulse Ox O2 Del Method 98.0 F 109 H 18 147/58 H 96 Room Air 04/04/24 07:30 04/04/24 07:30 04/04/24 07:30 04/04/24 07:30 04/04/24 07:30 04/04/24 11:00 Laboratory Results - last 24 hr 04/03/24 12:19: WBC 4.7 L, RBC 4.20, Hgb 13.1, Hct 40.0, MCV 95.3, MCH 31.2, MCHC 32.7, RDW 14.5, Plt Count 249, MPV 8.0, Neut % (Auto) 70.7, Lymph % (Auto) 21.6, Elliott % (Auto) 5.4, Eos % (Auto) 1.3, Baso % (Auto) 1.0, Neut # (Auto) 3.3, Lymph # (Auto) 1.0, Elliott # (Auto) 0.3, Eos # (Auto) 0.1, Baso # (Auto) 0.0, Sodium 119 L, Potassium 4.8, Chloride 89 L, Carbon Dioxide 29, Anion Gap 5.8, BUN 19 H, Creatinine 0.80, Estimated Creat Clear 83, Estimated GFR 73, Est GFR ( Amer) 89, Glucose 227 H, Calcium 8.4, Total Bilirubin 0.4, AST 30, ALT 26, Alkaline Phosphatase 141 H, Total Protein 6.8, Albumin 3.9, Globulin 2.9, Albumin/Globulin Ratio 1.3 04/03/24 14:42: Sodium 121 L, Potassium 4.1, Chloride 92 L, Carbon Dioxide 28, Anion Gap 5.1, BUN 18 H, Creatinine 0.70, Estimated Creat Clear 95, Estimated GFR 85, Est GFR ( Amer) 103, Glucose 124 H D, Calcium 8.0 L 04/03/24 17:02: POC Glucose 307 H* 04/03/24 17:30: Urine Sodium 88.0 04/03/24 20:08: Sodium 123 L, Potassium 4.2, Chloride 97 L, Carbon Dioxide 25, Anion Gap 5.2, BUN 19 H, Creatinine 0.70, Estimated Creat Clear 95, Estimated GFR 85, Est GFR ( Amer) 103, Glucose 88 D, Calcium 8.4 04/04/24 06:00: WBC 5.3, RBC 4.10 L, Hgb 13.0, Hct 39.4, MCV 96.0, MCH 31.6 H, MCHC 32.9, RDW 14.8, Plt Count 275, MPV 8.2, Neut % (Auto) 65.9, Lymph % (Auto) 24.4, Elliott % (Auto) 6.6, Eos % (Auto) 1.9, Baso % (Auto) 1.2, Neut # (Auto) 3.5, Lymph # (Auto) 1.3, Elliott # (Auto) 0.4, Eos # (Auto) 0.1, Baso # (Auto) 0.1, Sodium 123 L, Potassium 5.1 D, Chloride 98, Carbon Dioxide 26, Anion Gap 4.1 L, BUN 20 H, Creatinine 0.60, Estimated Creat Clear 105, Estimated GFR 102, Est GFR ( Amer) 123, Glucose 279 H D, Calcium 8.0 L, Magnesium 1.8, Total Bilirubin 0.4, AST 31, ALT 24, Alkaline Phosphatase 174 H, Total Protein 6.2 L, Albumin 3.4 L D, Globulin 2.8, Albumin/Globulin Ratio 1.2 04/04/24 06:19: POC Glucose 298 H 04/04/24 09:03: POC Glucose 254 H 04/04/24 11:04: POC Glucose 203 H I & O for Last 24 hours: Intake & Output 04/01/24 04/02/24 04/03/24 04/04/24 23:59 23:59 23:59 23:59 Intake Total 360 / 910 790 / 790 Output Total 0 / 0 0 / 0 Balance 360 0 790 / 790 Weight 70.534 kg 66.735 kg Constitutional Constitutional: no acute distress, thin, chronically ill appearing and cooperative *Routine HEENT Exam Head: Present normocephalic Eye: Present EOMI and PERRL ENT: Present mucous membranes moist *Routine Neck Exam Neck: Present supple; Absent lymphadenopathy *Routine Respiratory Exam Respiratory: Present prolonged expiratory phase and rhonchi; Absent wheezes or crackles *Routine Cardiovascular Exam Cardiovascular: Present RRR *Routine Abdominal Exam Abdominal: Present soft and normoactive bowel sounds; Absent tenderness *Routine Rectal Exam Patient deferred: visual exam *Routine Exam Patient deferred: external exam *Routine Extremities Exam Extremities: Absent cyanosis, clubbing or edema *Routine Skin Exam Skin: Present warm; Absent rash *Routine Neurological Exam Neurological: Present alert, oriented X3 and moving all extremities; Absent altered mental status Results Data Completed and Pending Labs on day of discharge: Labs from last 24 hours 04/04/24 04/04/24 04/04/24 11:04 09:03 06:19 WBC RBC Hgb Hct MCV MCH MCHC RDW Plt Count MPV Neut % (Auto) Lymph % (Auto) Elliott % (Auto) Eos % (Auto) Baso % (Auto) Neut # (Auto) Lymph # (Auto) Elliott # (Auto) Eos # (Auto) Baso # (Auto) Sodium Potassium Chloride Carbon Dioxide Anion Gap BUN Creatinine Estimated Creat Clear Estimated GFR Est GFR ( Amer) Glucose POC Glucose 203 H 254 H 298 H Calcium Magnesium Total Bilirubin AST ALT Alkaline Phosphatase Total Protein Albumin Globulin Albumin/Globulin Ratio Urine Sodium 04/04/24 04/03/24 04/03/24 06:00 20:08 17:30 WBC 5.3 RBC 4.10 L Hgb 13.0 Hct 39.4 MCV 96.0 MCH 31.6 H MCHC 32.9 RDW 14.8 Plt Count 275 MPV 8.2 Neut % (Auto) 65.9 Lymph % (Auto) 24.4 Elliott % (Auto) 6.6 Eos % (Auto) 1.9 Baso % (Auto) 1.2 Neut # (Auto) 3.5 Lymph # (Auto) 1.3 Elliott # (Auto) 0.4 Eos # (Auto) 0.1 Baso # (Auto) 0.1 Sodium 123 L 123 L Potassium 5.1 D 4.2 Chloride 98 97 L Carbon Dioxide 26 25 Anion Gap 4.1 L 5.2 BUN 20 H 19 H Creatinine 0.60 0.70 Estimated Creat Clear 105 95 Estimated GFR 102 85 Est GFR ( Amer) 123 103 Glucose 279 H D 88 D POC Glucose Calcium 8.0 L 8.4 Magnesium 1.8 Total Bilirubin 0.4 AST 31 ALT 24 Alkaline Phosphatase 174 H Total Protein 6.2 L Albumin 3.4 L D Globulin 2.8 Albumin/Globulin Ratio 1.2 Urine Sodium 88.0 04/03/24 04/03/24 04/03/24 17:02 14:42 12:19 WBC 4.7 L RBC 4.20 Hgb 13.1 Hct 40.0 MCV 95.3 MCH 31.2 MCHC 32.7 RDW 14.5 Plt Count 249 MPV 8.0 Neut % (Auto) 70.7 Lymph % (Auto) 21.6 Elliott % (Auto) 5.4 Eos % (Auto) 1.3 Baso % (Auto) 1.0 Neut # (Auto) 3.3 Lymph # (Auto) 1.0 Elliott # (Auto) 0.3 Eos # (Auto) 0.1 Baso # (Auto) 0.0 Sodium 121 L 119 L Potassium 4.1 4.8 Chloride 92 L 89 L Carbon Dioxide 28 29 Anion Gap 5.1 5.8 BUN 18 H 19 H Creatinine 0.70 0.80 Estimated Creat Clear 95 83 Estimated GFR 85 73 Est GFR ( Amer) 103 89 Glucose 124 H D 227 H POC Glucose 307 H* Calcium 8.0 L 8.4 Magnesium Total Bilirubin 0.4 AST 30 ALT 26 Alkaline Phosphatase 141 H Total Protein 6.8 Albumin 3.9 Globulin 2.9 Albumin/Globulin Ratio 1.3 Urine Sodium DS: Diagnosis Discharge Diagnosis (1) Hyponatremia: Status: Acute Code(s): E87.1 - Hypo-osmolality and hyponatremia (2) Diabetes mellitus: Status: Chronic Code(s): E11.9 - Type 2 diabetes mellitus without complications Qualifiers: Diabetes mellitus complication status: with other specified complication Diabetes mellitus half-way insulin 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 Diabetes mellitus type: other specified (including NAIMA) Qualified Code(s): E13.69 - Other specified diabetes mellitus with other specified complication (3) Insomnia: Status: Chronic Code(s): G47.00 - Insomnia, unspecified Qualifiers: Insomnia type: due to medical condition Qualified Code(s): G47.01 - Insomnia due to medical condition (4) Tobacco dependence syndrome: Status: Chronic Code(s): F17.200 - Nicotine dependence, unspecified, uncomplicated (5) Hyperlipidemia: Status: Acute Code(s): E78.5 - Hyperlipidemia, unspecified Qualifiers: Hyperlipidemia type: mixed hyperlipidemia Qualified Code(s): E78.2 - Mixed hyperlipidemia (6) Hypertension: Status: Chronic Code(s): I10 - Essential (primary) hypertension Qualifiers: Hypertension type: primary hypertension Qualified Code(s): I10 - Essential (primary) hypertension (7) Smoking greater than 30 pack years: Status: Acute Code(s): F17.210 - Nicotine dependence, cigarettes, uncomplicated (8) Mood disorder: Status: Chronic Code(s): F39 - Unspecified mood [affective] disorder Meds Home Medications and Allergies Home Medications ?Medication ?Instructions ?Recorded ?Confirmed ?Type alendronate 70 mg tablet 70 mg PO WEEKLY 02/23/24 04/03/24 History famotidine 20 mg tablet 20 mg PO BID 02/23/24 04/03/24 History hydroxyzine HCl 25 mg tablet 50 mg PO HS 02/23/24 04/03/24 History insulin aspart U-100 100 unit/mL See Rx Instructions .Route .COMPLEX 02/23/24 04/03/24 History (3 mL) subcutaneous pen (Novolog FlexPen U-100 Insulin aspart) insulin glargine 100 unit/mL (3 9 unit SQ BID 02/23/24 04/03/24 History mL) subcutaneous pen (Lantus Solostar U-100 Insulin) levothyroxine 75 mcg tablet 75 mcg PO DAILY 02/23/24 04/03/24 History primidone 250 mg tablet 250 mg PO HS 02/23/24 04/03/24 History temazepam 22.5 mg capsule 22.5 mg PO HS 02/23/24 04/03/24 History tizanidine 4 mg tablet 4 mg PO BID 02/23/24 04/03/24 History hydroxyzine HCl 25 mg tablet 75 mg PO DAILY 03/05/24 04/03/24 History vibegron 75 mg tablet (Gemtesa) 75 mg PO HS 03/06/24 04/03/24 History valsartan 80 mg tablet 80 mg PO DAILY #30 tabs 03/24/24 04/03/24 Rx quetiapine 200 mg tablet (Seroquel) 200 mg PO HS #30 tabs 03/31/24 04/03/24 Rx dextromethorphan polistirex 30 10 ml PO Q12HP PRN Cough 04/03/24 04/03/24 History mg/5 mL oral susp ext.release 12hr (Cough DM ER) linaclotide 290 mcg capsule 290 mcg PO DAILY 04/03/24 04/03/24 History (Linzess) mirtazapine 30 mg tablet (Remeron) 30 mg PO HS 04/03/24 04/03/24 History evolocumab 140 mg/mL subcutaneous 140 mg SQ Q2W #3 mL 04/04/24 Rx syringe (Repatha Syringe) New Prescriptions to Start Prescriptions: Allergies Allergy/AdvReac Type Severity Reaction Status Date / Time Penicillins Allergy Severe itching,ciro Verified 03/24/24 11:16 h clindamycin Allergy Verified 03/24/24 11:16 atorvastatin [From Lipitor] AdvReac Intermediate liver Verified 03/24/24 11:16 injury Discharge Plan Disposition Patient Disposition: Home, Self-Care Condition: Fair Follow up Plan Follow up with: Enoch Alonzo MD [Primary Care Provider] - 04/11/24 10:30 am Prescriptions/Medication Reconciliation: Continued valsartan 80 mg tablet 80 mg PO DAILY Qty: 30 2RF quetiapine [Seroquel] 200 mg tablet 200 mg PO HS Qty: 30 1RF Repatha Syringe 140 mg/mL syringe 140 mg SQ Q2W Qty: 3 2RF tizanidine 4 mg tablet 4 mg PO BID Patient Comments: TAKE 1 TABLET BY MOUTH TWICE DAILY alendronate 70 mg tablet 70 mg PO WEEKLY Patient Comments: TAKE 1 TABLET BY MOUTH EVERY 7 DAYS, TAKE IN THE MORNING WITH A FULL GLASS OF WATER, ON AN EMPTY STOMACH, AND DONOT TAKE ANYTHING ELSE BY MOUTH OR LIE DOWN FOR THE NEXT 30 MINUTES levothyroxine 75 mcg tablet 75 mcg PO DAILY famotidine 20 mg tablet 20 mg PO BID primidone 250 mg tablet 250 mg PO HS Patient Comments: TAKE 1 TABLET BY MOUTH ONCE DAILY AT NIGHT hydroxyzine HCl 25 mg tablet 50 mg PO HS insulin aspart U-100 [Novolog FlexPen U-100 Insulin] 100 unit/mL (3 mL) insulin pen See Rx Instructions .ROUTE .COMPLEX Rx Instructions: SLIDING SCALE DOSE temazepam 22.5 mg capsule 22.5 mg PO HS Patient Comments: TAKE 1 CAPSULE BY MOUTH AT BEDTIME insulin glargine [Lantus Solostar U-100 Insulin] 100 unit/mL (3 mL) insulin pen 9 unit SQ BID hydroxyzine HCl 25 mg tablet 75 mg PO DAILY Gemtesa 75 mg tablet 75 mg PO HS Patient Comments: TAKE 1 TABLET BY MOUTH ONCE DAILY dextromethorphan polistirex [Cough DM ER] 30 mg/5 mL suspension,extended rel 12 hr 10 ml PO Q12HP PRN (Reason: Cough) Patient Comments: TAKE 10 ML BY MOUTH EVERY 12 HOURS FOR 10 DAYS NEEDED Linzess 290 mcg capsule 290 mcg PO DAILY Patient Comments: TAKE 1 CAPSULE BY MOUTH ONCE DAILY BEFORE MEAL(S) FOR CONSTIPATION mirtazapine [Remeron] 30 mg tablet 30 mg PO HS Discontinued desmopressin 0.2 mg tablet 0.2 mg PO DAILY Other Ambulatory Orders: Basic Metabolic Panel (Routine) Timeframe: 3 Days Facility: [facility] - Location: Laboratory Ordered By: Pramod Bowling Problem Reconciliation Problems Reviewed?: Yes Patient Discharge Instructions ACTIVITY: Continue current activity DIET: continue same diet Patient Instructions: Smoking Cessation for Older Adults: It's Not Too Late!, DI for Hyponatremia Print Language: Arabic Providers Primary Care Provider: Enoch Alonzo Admit Provider: Pramod Bowling Attending Provider: Pramod Bowling
[2024-04-04 14:19] LABS: Blood Urea Nitrogen 20 mg/dl (7-17); Calcium 8.7 mg/dl (8.4-10.2); Carbon Dioxide 26 mmol/L (22.0-30.0); Chloride 100 mmol/L (98-107); Creatinine Clearance Estimated 70 mL/min (50-200); Estimated Glomerular Filt Rate 64 ml/min (>60); GFR (African American) 77 ML/MIN (>60); Glucose 79 mg/dl (74-100); Sodium 128 mmol/L (136-145)
[2024-04-04 15:09] LABS: Anion Gap 6.7 mEq/L (5-15)
[2024-04-04 15:10] LABS: Potassium 4.7 mmoL/L (3.5-5.1)
--- NOTE | 2024-04-08 14:41 | CARE MANAGER ---
Contacted patient related to hospital discharge. She states she is better. She had labs drawn per MD request today and is aware of follow up with Dr. Alonzo. She is aware of medication changes and denies any questions or concerns. HERBIE Meza
== END 2024-04-04 15:51 | disposition home or self-care (01) ==
LOC: ER 12:10 → 2ND 14:30
PROVIDERS: Admitting Provider Internal Medicine Adolescent Medicine; Emergency Provider Student in an Organized Health Care Education/Training Program; PCP Internal Medicine Adolescent Medicine; Visit Provider Internal Medicine Adolescent Medicine
DX: E87.1 Hypo-osmolality and hyponatremia (principal); E11.9 Type 2 diabetes mellitus without complications; G47.01 Insomnia due to medical condition; E78.2 Mixed hyperlipidemia; I10 Essential (primary) hypertension; F39 Unspecified mood [affective] disorder; R32 Unspecified urinary incontinence; I25.10 Atherosclerotic heart disease of native coronary artery without angina pectoris; E03.9 Hypothyroidism, unspecified; Z79.4 Long term (current) use of insulin; F17.210 Nicotine dependence, cigarettes, uncomplicated; Z79.899 Other long term (current) drug therapy
CPT/HCPCS: 36415; 80048; 80053; 82962; 83735; 84540; 85025; 99285; G0378; J7030

== ENCOUNTER 2024-04-08 11:59 | Outpatient (CLI) | payer MEDICARE, MEDICAID, SELFPAY ==
[2024-04-08 13:05] LABS: Anion Gap 5.8 mEq/L (5-15); Blood Urea Nitrogen 16 mg/dl (7-17); Calcium 9.4 mg/dl (8.4-10.2); Carbon Dioxide 27 mmol/L (22.0-30.0); Chloride 105 mmol/L (98-107); Estimated Glomerular Filt Rate 85 ml/min (>60); GFR (African American) 103 ML/MIN (>60); Glucose 174 mg/dl (74-100); Potassium 4.8 mmoL/L (3.5-5.1); Sodium 133 mmol/L (136-145)
== END 2024-04-08 23:59 | disposition home or self-care (01) ==
LOC: LAB 12:00
PROVIDERS: PCP Internal Medicine Adolescent Medicine; Visit Provider Internal Medicine Adolescent Medicine
DX: E87.1 Hypo-osmolality and hyponatremia (principal)
CPT/HCPCS: 36415; 80048

== ENCOUNTER 2024-05-29 13:49 | Outpatient (CLI) | payer MEDICARE, MEDICAID, SELFPAY ==
[2024-05-29 14:32] LABS: Anion Gap 7.3 mEq/L (5-15); Blood Urea Nitrogen 19 mg/dl (7-17); Calcium 9.3 mg/dl (8.4-10.2); Carbon Dioxide 27 mmol/L (22.0-30.0); Chloride 104 mmol/L (98-107); Estimated Glomerular Filt Rate 73 ml/min (>60); GFR (African American) 88 ML/MIN (>60); Glucose 178 mg/dl (74-100); Magnesium 1.7 mg/dl (1.6-2.3); Potassium 4.3 mmoL/L (3.5-5.1); Sodium 134 mmol/L (136-145)
[2024-05-29 14:41] LABS: NT Pro Brain Natriuretic Pep. 354 pg/mL (0-125)
== END 2024-05-29 23:59 | disposition home or self-care (01) ==
LOC: LAB 13:49
PROVIDERS: Visit Provider Physician Assistant
DX: R06.09 Other forms of dyspnea (principal); E87.1 Hypo-osmolality and hyponatremia; I51.89 Other ill-defined heart diseases; I25.118 Atherosclerotic heart disease of native coronary artery with other forms of angina pectoris; E78.2 Mixed hyperlipidemia; I10 Essential (primary) hypertension
CPT/HCPCS: 36415; 80048; 83735; 83880

== ENCOUNTER 2024-06-13 12:11 | Outpatient (CLI) | payer MEDICARE, MEDICAID, SELFPAY ==
[2024-06-13 13:10] LABS: Chloride 93 mmol/L (98-107); Potassium 5.4 mmoL/L (3.5-5.1); Sodium 127 mmol/L (136-145)
[2024-06-13 13:13] LABS: Anion Gap 10.4 mEq/L (5-15); Blood Urea Nitrogen 22 mg/dl (7-17); Carbon Dioxide 29 mmol/L (22.0-30.0); Estimated Glomerular Filt Rate 56 ml/min (>60); GFR (African American) 68 ML/MIN (>60); Glucose 325 mg/dl (74-100); Magnesium 1.9 mg/dl (1.6-2.3)
[2024-06-13 13:20] LABS: NT Pro Brain Natriuretic Pep. 155 pg/mL (0-125)
== END 2024-06-13 23:59 | disposition home or self-care (01) ==
LOC: LAB 12:12
PROVIDERS: Visit Provider Physician Assistant
DX: I50.30 Unspecified diastolic (congestive) heart failure (principal); R60.0 Localized edema; E87.1 Hypo-osmolality and hyponatremia; R06.09 Other forms of dyspnea
CPT/HCPCS: 80048; 83735; 83880

== ENCOUNTER 2024-06-27 12:21 | Outpatient (CLI) | payer MEDICARE, MEDICAID, SELFPAY ==
[2024-06-27 13:27] LABS: Anion Gap 11.5 mEq/L (5-15); Blood Urea Nitrogen 18 mg/dl (7-17); Calcium 9.5 mg/dl (8.4-10.2); Carbon Dioxide 24 mmol/L (22.0-30.0); Chloride 102 mmol/L (98-107); Estimated Glomerular Filt Rate 56 ml/min (>60); GFR (African American) 68 ML/MIN (>60); Glucose 131 mg/dl (74-100); Potassium 4.5 mmoL/L (3.5-5.1); Sodium 133 mmol/L (136-145)
== END 2024-06-27 23:59 | disposition home or self-care (01) ==
LOC: LAB 12:22
PROVIDERS: PCP Nurse Practitioner; Visit Provider Physician Assistant
DX: I10 Essential (primary) hypertension (principal); R60.9 Edema, unspecified
CPT/HCPCS: 80048

== ENCOUNTER 2024-06-29 11:33 | Emergency (ER) | payer MEDICARE, MEDICAID, SELFPAY ==
[2024-06-29 11:47] VITALS: BP 177/80; PULSE 97; RESP 16; TEMP 37.8; O2SAT 97; BMI 25.2
[2024-06-29 12:00] VITALS: BP 141/73; PULSE 91; O2SAT 93
--- NOTE | 2024-06-29 12:04 | XR_ITS ---
PROCEDURE INFORMATION: Exam: XR Right Shoulder Exam date and time: 06/29/2024 12:45 PM Age: 59 years old Clinical indication: Pain; Shoulder; Right; Additional info: Non traumatic shoulder pain TECHNIQUE: Imaging protocol: Radiologic exam of the right shoulder. Views: 2 or more views. COMPARISON: CR XR CHEST PORTABLE 03/05/2024 8:39 AM FINDINGS: Bones/joints: There are moderate degenerative changes of the acromioclavicular joint. No visible fracture or dislocation. No calcific tendinitis. Soft tissues: Normal. IMPRESSION: 1. No visible fracture or dislocation. 2. No calcific tendinitis.
--- NOTE | 2024-06-29 12:06 | HMH.EDGENADL ---
Discharge Plan Disposition Patient Disposition: Home, Self-Care Prescriptions Prescriptions: New cyclobenzaprine 10 mg tablet 10 mg PO TID PRN (Reason: muscle spasm) 5 Days Qty: 15 0RF ibuprofen 600 mg tablet 600 mg PO Q8H PRN (Reason: pain) 7 Days Qty: 21 0RF No Action mirtazapine 15 mg tablet 30 mg PO QHS Patient Comments: TAKE 1 TABLET BY MOUTH AT BEDTIME NIGHTLY furosemide [Lasix] 40 mg tablet 40 mg PO DAILY Qty: 15 3RF promethazine 25 mg tablet 25 mg PO HS Qty: 7 0RF fluticasone propionate [Flonase Allergy Relief] 50 mcg/actuation spray,suspension 1 spray intranasal DAILY PRN (Reason: allergies) Qty: 16 0RF Rx Instructions: administer into each nostril dextromethorphan polistirex [Delsym 12 hour] 30 mg/5 mL suspension,extended rel 12 hr 10 ml PO Q12H Qty: 89 0RF estradiol 0.01 % (0.1 mg/gram) cream See Rx Instructions vaginal .COMPLEX Qty: 42.5 2RF Rx Instructions: Using finger technique daily for two weeks and then twice weekly vaginally; quetiapine [Seroquel] 200 mg tablet 200 mg PO HS Qty: 30 1RF Repatha Syringe 140 mg/mL syringe 140 mg SQ Q2W Qty: 3 2RF valsartan 80 mg tablet See Rx Instructions .ROUTE .COMPLEX Qty: 90 3RF Dose Instruction: Take 1 tablet by mouth once daily Rx Instructions: Take 1 tablet by mouth once daily tizanidine 4 mg tablet 4 mg PO BID Patient Comments: TAKE 1 TABLET BY MOUTH TWICE DAILY alendronate 70 mg tablet 70 mg PO WEEKLY Patient Comments: TAKE 1 TABLET BY MOUTH EVERY 7 DAYS, TAKE IN THE MORNING WITH A FULL GLASS OF WATER, ON AN EMPTY STOMACH, AND DONOT TAKE ANYTHING ELSE BY MOUTH OR LIE DOWN FOR THE NEXT 30 MINUTES levothyroxine 75 mcg tablet 75 mcg PO DAILY famotidine 20 mg tablet 20 mg PO BID primidone 250 mg tablet 250 mg PO HS Patient Comments: TAKE 1 TABLET BY MOUTH ONCE DAILY AT NIGHT insulin aspart U-100 [Novolog FlexPen U-100 Insulin] 100 unit/mL (3 mL) insulin pen See Rx Instructions .ROUTE .COMPLEX Rx Instructions: SLIDING SCALE DOSE temazepam 22.5 mg capsule 22.5 mg PO HS Patient Comments: TAKE 1 CAPSULE BY MOUTH AT BEDTIME insulin glargine [Lantus Solostar U-100 Insulin] 100 unit/mL (3 mL) insulin pen 9 unit SQ BID hydroxyzine HCl 25 mg tablet 125 mg PO BID Rx Instructions: two in the AM and three in the PM Linzess 290 mcg capsule 290 mcg PO DAILY Patient Comments: TAKE 1 CAPSULE BY MOUTH ONCE DAILY BEFORE MEAL(S) FOR CONSTIPATION Referrals Follow up/Referrals: Boy Ding DO [Staff Physician] - See instructions Gwen Ruiz APRN [Primary Care Provider] - See instructions Activity Restrictions/Add. Instructions Additional Instructions/Restrictions: No emergent medical condition identified today regarding her right shoulder pain. I recommend that you follow-up outpatient with Dr. Ding if your symptoms persist beyond a few days as this may be related to rotator cuff pathology or other soft tissue abnormalities which would only be seen on an MRI. If you develop any high fevers chills or infectious type symptoms or redness and swelling over the joint itself please return to the emergency department. Also please do not take the prescribed muscle relaxer with other muscle lectures that he may still have at home. Clinical Impressions Clinical Impression: Right shoulder strain Print Language Print Language: Azerbaijani Discharge ED Provider: Florence Villatoro General Adult HPI General Chief complaint: Extremity Injury, Upper Stated complaint: right shoulder pain Time Seen by Provider: 06/29/24 11:56 Mode of Arrival: Ambulatory Source of Information: Patient Limitations: No Limitations Description of Symptoms (Recalled from ER Triage Doc. by RN): Pt. presents to the ED with complaints of right shoulder pain x2 days. She denies any known injury. She rates the pain 10/10. She has limited range of motion. History of Present Illness HPI narrative: Patient is a 59-year-old female presents today with nontraumatic right shoulder pain. She did state that she was moving her arm 2 days ago and she potentially felt a pop but no significant or definitive trauma. No fevers or feeling sick at home. Has limited range of motion she states that she had some leftover opiates at home from a dental surgery and also took a tizanidine without any had significant improvement in her symptoms. Related Data Home Medications ?Medication ?Instructions ?Recorded ?Confirmed alendronate 70 mg tablet 70 mg PO WEEKLY 02/23/24 06/29/24 famotidine 20 mg tablet 20 mg PO BID 02/23/24 06/29/24 insulin aspart U-100 100 unit/mL See Rx Instructions .Route .COMPLEX 02/23/24 06/29/24 (3 mL) subcutaneous pen (Novolog FlexPen U-100 Insulin aspart) insulin glargine 100 unit/mL (3 9 unit SQ BID 02/23/24 06/29/24 mL) subcutaneous pen (Lantus Solostar U-100 Insulin) levothyroxine 75 mcg tablet 75 mcg PO DAILY 02/23/24 06/29/24 primidone 250 mg tablet 250 mg PO HS 02/23/24 06/29/24 temazepam 22.5 mg capsule 22.5 mg PO HS 02/23/24 06/29/24 tizanidine 4 mg tablet 4 mg PO BID 02/23/24 06/29/24 linaclotide 290 mcg capsule 290 mcg PO DAILY 04/03/24 06/29/24 (Linzess) mirtazapine 15 mg tablet 30 mg PO QHS 04/29/24 06/29/24 hydroxyzine HCl 25 mg tablet 125 mg PO BID 05/26/24 06/29/24 Previous Rx's ?Medication ?Instructions ?Recorded quetiapine 200 mg tablet (Seroquel) 200 mg PO HS #30 tabs 03/31/24 evolocumab 140 mg/mL subcutaneous 140 mg SQ Q2W #3 mL 04/04/24 syringe (Repatha Syringe) estradiol 0.01% (0.1 mg/gram) See Rx Instructions vaginal 05/19/24 vaginal cream .COMPLEX #42.5 grams dextromethorphan polistirex 30 10 ml PO Q12H #89 mL 05/29/24 mg/5 mL oral susp ext.release 12hr (Delsym 12 hour) fluticasone propionate 50 1 spray intranasal DAILY PRN 05/29/24 mcg/actuation nasal allergies #16 grams spray,suspension (Flonase Allergy Relief) furosemide 40 mg tablet (Lasix) 40 mg PO DAILY #15 tabs 05/29/24 promethazine 25 mg tablet 25 mg PO HS #7 tabs 05/29/24 valsartan 80 mg tablet See Rx Instructions .Route 06/11/24 .COMPLEX #90 tabs cyclobenzaprine 10 mg tablet 10 mg PO TID PRN muscle spasm 5 06/29/24 days #15 tabs ibuprofen 600 mg tablet 600 mg PO Q8H PRN pain 7 days #21 06/29/24 tabs Allergies Allergy/AdvReac Type Severity Reaction Status Date / Time Penicillins Allergy Severe itching,ciro Verified 06/29/24 11:57 h clindamycin Allergy Other Verified 06/29/24 11:57 atorvastatin (From Lipitor) AdvReac Intermediate liver Verified 06/29/24 11:57 injury [facility] Disclaimer: The information contained in this section may have been updated after the patient was seen, as this information can be updated by other users. Medical History Atypical angina Encounter for screening for malignant neoplasm of lung Dyspnea on exertion Smoking greater than 30 pack years Insomnia Mood disorder Diastolic dysfunction Hyperlipidemia Hypertension Diabetes mellitus Tobacco dependence syndrome CAD (coronary atherosclerotic disease) Hospital admission at [facility], 04/2023: Pneumonia, CHF, Hypoxemia requiring CPAP and O2 3lpm. Cellulitis Insulin pump in place Thyroid disease Diabetes Surgical History History of surgery on lower extremity H/O section H/O knee surgery Stented coronary artery Family History Other Cancer Diabetes FHx: mental illness No significant family history Stroke Social History Smoking Status: Current every day smoker tobacco type: cigarettes packs per day: 1 quit status: considering quitting alcohol intake: former substance use type: denies use current occupational status: disabled household members: significant other housing: apartment lives independently: Yes marital status: life partner number of children: 1 Other Medical History Have you received the Flu Vaccine for this season: No Have you received the Pneumonia Vaccine: No ROS Obtained: Yes All systems reviewed & no additional complaints except as documented Physical Exam General General appearance: alert and in no apparent distress Respiratory Respiratory exam: Present normal lung sounds bilaterally Cardiovascular Cardiovascular exam: Present regular rate Extremities Exam Extremities exam: Present other (Limited range of motion in the right shoulder does not feel warm to me out of proportion to the left I do not palpate a definitive shoulder effusion neurovascular intact) Neurological Exam Neurological exam: Present alert and oriented X3 Medical Decision Making Medical Records Screening: Per USPSTF and CDC recommendations, given the prevalence of disease in our region, it is our hospital?s policy to screen for HIV and viral Hepatitis for all patients aged 18 and over and those with ongoing risk factors. Gamaliel Inquiry Pt receiving controlled substance: No Vital Signs: 06/29/24 11:47 06/29/24 12:00 06/29/24 12:31 Temperature 100.1 F H Temperature Source Oral Pulse Rate 91 H 81 Pulse Rate [Left Brachial] 97 H Respiratory Rate 16 Blood Pressure 141/73 H 147/74 H Blood Pressure [Left Arm] 177/80 H Blood Pressure Mean 103 Blood Pressure Mean [Left Arm] 112 Blood Pressure Source [Left Arm] Automatic Cuff Blood Pressure Position [Left Arm] Sitting 02 Sat by Pulse Oximetry 97 93 L 95 Oxygen Delivery Method Room Air Room Air Lab Data Lab Results 06/29/24 12:30: WBC 6.8, RBC 4.20, Hgb 13.1, Hct 37.9, MCV 90.3, MCH 31.2, MCHC 34.6, RDW 14.8, Plt Count 265, MPV 7.9, Neut % (Auto) 65.0, Lymph % (Auto) 27.1, [place] % (Auto) 5.5, Eos % (Auto) 1.4, Baso % (Auto) 1.0, Neut # (Auto) 4.5, Lymph # (Auto) 1.9, [place] # (Auto) 0.4, Eos # (Auto) 0.1, Baso # (Auto) 0.1, Sodium 127 L, Potassium 4.5, Chloride 98, Carbon Dioxide 24, Anion Gap 9.5, BUN 16, Creatinine 0.80, Estimated Creat Clear 64, Estimated GFR 73, Est GFR ( Amer) 88 D, Glucose 135 H, Calcium 9.4, Total Bilirubin 0.4, AST 24, ALT 17, Alkaline Phosphatase 111, C-Reactive Protein 14.1 H, Total Protein 6.8, Albumin 4.0, Globulin 2.8, Albumin/Globulin Ratio 1.4 06/29/24 12:30 06/29/24 12:30 Orders (Tests/Meds): ED MEDICATIONS Discontinued Medications Generic Name Dose Route Start Last Admin Trade Name Freq PRN Reason Stop Dose Admin Lactated Ringer's 1,000 mls @ 999 mls/hr 06/29/24 12:15 06/29/24 12:29 Lactated Ringer's 1000 Ml Bag IV 06/29/24 13:15 999 mls/hr .Q1H1M SYED Administration Ketorolac Tromethamine 15 mg 06/29/24 12:07 06/29/24 12:29 Ketorolac 30mg/Ml Vial IV 06/29/24 12:08 15 mg ONCE ONE Administration ORDERS Category Date Time Status Shoulder XR right miminum 2 views [XR shoulder RT min Exams 06/29/24 12:04 Completed 2V] Stat CBC w/Auto Diff [Complete Blood Count Auto Diff] Stat Lab 06/29/24 12:30 Results CMP [Comprehensive Metabolic Panel] Stat Lab 06/29/24 12:30 Completed CRP [C-Reactive Protein] Stat Lab 06/29/24 12:30 Completed ESR [Erythrocyte Sedimentation Rate] Stat Lab 06/29/24 12:30 Results Blood Culture Stat Micro 06/29/24 12:16 Received Medical Decision Narrative: 59-year-old with nontraumatic right shoulder pain limited range of motion and low-grade temperature not definitively an objective fever but concerning enough to be concern for possible septic joint. Her exam and history do not match a high likelihood of having a septic joint but will get inflammatory markers do blood cultures and reassess. IV fluids and Toradol have been administered. I suspect most likely she strained her shoulder with this activity that she said she felt a potential pop 2 days ago. Will get a plain film of the shoulder in addition to these labs and reassess. On my reassessment I took her temperature prior to Toradol administration and her temperature was 98. Labs unremarkable inflammatory markers very mildly elevated but nothing significant. Additionally from a clinical exam standpoint and his requesting but this does not seem to be consistent with a septic joint. Cannot rule this out definitively I told the patient that the only way that I could ruled out would be to do an arthrocentesis and we both agreed not to do that at the moment. She has been given return precautions including redness swelling fevers chills etc. to return to the emergency department otherwise to follow-up with orthopedic surgery for possible outpatient MRI if her symptoms persist. Supportive care discussed as well as return precautions emphasized. Critical Care Critical Care Time Critical Care Time: No
[2024-06-29] MEDS: LACTATED RINGERS 1000ML 1,000 ML 999 ML IV (12:29)
[2024-06-29] MEDS: KETOROLAC 30MG/ML VIAL 15 MG IV (12:29)
[2024-06-29 12:31] VITALS: BP 147/74; PULSE 81; O2SAT 95
[2024-06-29 12:44] LABS: Chloride 98 mmol/L (98-107); Potassium 4.5 mmoL/L (3.5-5.1); Sodium 127 mmol/L (136-145)
[2024-06-29 12:47] LABS: Alanine Aminotransferase 17 U/L (12-78); Albumin/Globulin Ratio 1.4 (1.1-1.8); Alkaline Phosphatase 111 U/L (38-126); Anion Gap 9.5 mEq/L (5-15); Aspartate Amino Transferase 24 U/L (14-36); Bilirubin,Total 0.4 mg/dl (0.2-1.3); Blood Urea Nitrogen 16 mg/dl (7-17); Calcium 9.4 mg/dl (8.4-10.2); Carbon Dioxide 24 mmol/L (22.0-30.0); Creatinine Clearance Estimated 64 mL/min (50-200); Estimated Glomerular Filt Rate 73 ml/min (>60); GFR (African American) 88 ML/MIN (>60); Globulin 2.8 g/dL (1.3-3.2); Glucose 135 mg/dl (74-100); Total Protein,Serum 6.8 g/dl (6.3-8.2)
[2024-06-29 12:51] LABS: Basophils # 0.1 K/mm3 (0-0.2); Eosinophils # 0.1 K/mm3 (0.0-0.4); Eosinophils % 1.4 % (0.1-12.0); Hematocrit 37.9 % (37.0-47.0); Hemoglobin 13.1 g/dL (12.2-16.2); Lymphocytes # 1.9 K/mm3 (0.7-4.5); Lymphocytes % 27.1 % (10-50); Mean Corpuscular HGB Conc 34.6 g/dL (31.8-35.4); Mean Corpuscular Hemoglobin 31.2 pg (27.0-31.2); Mean Corpuscular Volume 90.3 fl (81-99); Mean Platelet Volume 7.9 fl (7.4-10.4); Monocytes # 0.4 K/mm3 (0.1-1.0); Monocytes % 5.5 % (1.7-9.3); Neutrophils # 4.5 K/mm3 (1.8-7.8); Platelet Count 265 K/mm3 (142-424); Red Cell Distribution Width 14.8 % (11.5-17.5); White Blood Count 6.8 K/mm3 (4.8-10.8)
[2024-06-29 12:53] LABS: C-Reactive Protein 14.1 mg/L (0-4)
[2024-06-29 13:52] VITALS: BP 166/70; PULSE 87; RESP 16; TEMP 36.7; O2SAT 99
[2024-06-29 13:55] LABS: Erythrocyte Sedimentation Rate 34 mm/hr (0-30)
== END 2024-06-29 14:02 | disposition home or self-care (01) ==
PROVIDERS: Emergency Provider Student in an Organized Health Care Education/Training Program; PCP Nurse Practitioner
DX: S46.911A Strain of unspecified muscle, fascia and tendon at shoulder and upper arm level, right arm, initial encounter (principal); M25.511 Pain in right shoulder
CPT/HCPCS: 73030; 80053; 85025; 85651; 86140; 87040; 96361; 96374; 99283; J1885; J7120

== ENCOUNTER 2024-07-16 12:37 | Outpatient (CLI) | payer MEDICARE, MEDICAID, SELFPAY ==
[2024-07-16 13:11] VITALS: BMI 26.1
[2024-07-16 15:19] LABS: Sodium 132 mmol/L (136-145)
== END 2024-07-16 23:59 | disposition home or self-care (01) ==
LOC: PREOP 12:38
PROVIDERS: Nurse Anesthetist, Certified Registered; PCP Nurse Practitioner; Visit Provider Nurse Practitioner Obstetrics & Gynecology
DX: Z01.812 Encounter for preprocedural laboratory examination (principal)
CPT/HCPCS: 84295

== ENCOUNTER 2024-07-22 06:06 | Day surgery (SDC) | payer MEDICARE, MEDICAID, SELFPAY ==
[2024-07-22] VITALS (10 sets, daily range): BP systolic 111–162; BP diastolic 53–75; PULSE 93–102; RESP 16–18; TEMP 36.4–36.9; O2SAT 93–97; BMI 29.1
[2024-07-22] MEDS: 0.9 % SODIUM CHLORIDE 1000ML 1,000 ML 25 ML IV (06:44)
[2024-07-22 06:56] LABS: POC Glucose,Bedside 210 (70-110)
--- NOTE | 2024-07-22 07:14 | P.PNANES_ITS ---
[facility] Disclaimer: The information contained in this section may have been updated after the patient was seen, as this information can be updated by other users. Medical History Pulsatile tinnitus, bilateral Atypical angina Encounter for screening for malignant neoplasm of lung Dyspnea on exertion Smoking greater than 30 pack years Insomnia Mood disorder Diastolic dysfunction Hyperlipidemia Hypertension Diabetes mellitus Tobacco dependence syndrome CAD (coronary atherosclerotic disease) Cellulitis Insulin pump in place Thyroid disease Diabetes Surgical History Hx of LASIK History of surgery on lower extremity History of carpal tunnel release of both wrists History of tonsillectomy and adenoidectomy H/O cardiac catheterization History of surgery on lower extremity H/O section H/O knee surgery Stented coronary artery Family History Other Cancer Diabetes FHx: mental illness No significant family history Stroke Social History (Updated 07/22/24 @ 06:35 by Tsering Rosales RN) Smoking Status: Current every day smoker tobacco type: cigarettes packs per day: 1 quit status: considering quitting alcohol intake: never substance use type: denies use current occupational status: disabled Travel in the last 8 weeks: None household members: significant other housing: apartment lives independently: Yes marital status: life partner number of children: 1 Have you lived/traveled outside [place] in past 30 days?: No Contact w/someone who lives/traveled outside [place] past 30 days?: No Exposure to someone with infectious disease in past 14 days?: No Do you have a fever (greater than 100.4 F or 38 C)?: No Have you tested positive for COVID-19: No Exposed to someone with COVID-19 in past 14 days?: No Do you have a sore throat?: No Do you have a cough?: No Do you have any weakness?: No Are you experiencing any nausea/vomitting?: No Do you have any diarrhea?: No Are you experiencing any unusual bleeding?: No Do you have any muscle aches/pain?: No Do you have any abdominal pain?: No Are you experiencing loss of taste or smell?: No [facility] Anesthesia Checklist Patient Identification Patient Identification: Arm Band, Family and Verbal (Name & ) Structural Data Admitted From: Home Planned Operative Procedure/s: TVT Consent for Planned Operative Procedure(s) Verified: Yes Verified Documents: Surgical Consent and History and Physical NPO Status Verified Time NPO: 04:30 (Sprite) Chart Verification Results Verified: CBC, BMP and ECG Additional verifications Fingerstick Blood Glucose: 210 Patient : No Anesthesia Reactions: No Hx Blood Transfusions: No Blood Transfusion Reaction: No Cardiovascular Assessment Heart Sounds: S1 & S2 Pulse Rhythm: Irregular Peripheral Edema: No Airway Assessment Mallampati Score:: Class II C-Spine Mobility Assessed: Yes TMJ Mobility Assessed: Yes Dentition: Edentulous (+ posts x3 in lower jaw for denture application) Neurological Assessment Level of Consciousness: Awake, Alert, Appropriate and Follows Commands Hx Seizures: No Numbness or tingling in extremities: No Anesthesia Plan Anesthesia Risk discussed: Yes Anesthesia Plan: Verified ASA Class: III Anesthesia Type: General
[2024-07-22] MEDS: LEVOFLOXACIN/D5W 500 MG/100 ML PIGGYBACK 100 MG IV (07:20)
[2024-07-22] MEDS: LIDOCAINE 1% W/EPI 1:100,000 20ML VIAL 20 ML (07:42)
[2024-07-22] MEDS: ROPIVACAINE 0.5% 30ML VIAL 450 MG (07:42)
[2024-07-22] MEDS: SODIUM CHLORIDE IRRIG SOLUTION 3,000 ML 25 ML IR (07:42)
--- NOTE | 2024-07-22 08:21 | EXP.ANES.I ---
[facility] Anesthesia Record Part I Anesthesia Record I Intake, IV Amount: 700 Hydration: Adequate Estimated blood loss (mL): 75 Urine output (mL): 0 Blood Pressure: 111/53 SaO2: 94 Pulse Rate: 98 Airway Patency: Patent Respiratory Rate: 16 Temperature: 97.8 F Patient is:: Drowsy Stable to PACU at:: 08:15
[2024-07-22] MEDS: PROMETHAZINE HCL 25MG/ML 1ML VIAL 6.25 MG IV (08:39)
--- NOTE | 2024-07-22 08:50 | EXP.OP.NOTE ---
Date of procedure: 07/22/24 Pre-op Diagnosis:: Intrinsic sphincter deficiency, genuine stress urinary incontinence Post-op Diagnosis:: Intrinsic sphincter deficiency, genuine stress urinary incontinence Procedure performed:: Tension-free tape Surgeon:: Khanh Hartman MD Pile Header(s):: Dr. Hoffmann [employer] K[employer] AND RECAUSTICIZING OPERATOR:: Fred Downey Anesthesia: LMA Estimated blood loss (mL): 100 Clinical Note:: She is a 59-year-old lady who loses urine with laughing coughing sneezing. She also has what appears to be intrinsic sphincter deficiency. As result of that she was offered tension-free vaginal tape. She has tried various medications and continues to leak urine profusely. Operative findings:: She had a normal-appearing bladder with normal capacity. She had a normal-appearing urethra. Ureter Heriberto orifices were seen and appeared normal. Operative note:: She was taken to the operating room where LMA anesthesia was found be adequate. She was prepped and draped in normal sterile fashion in the lithotomy position. The bladder was drained. Weighted speculum was placed in the vagina and I injected 20 cc of 1% Xylocaine with epinephrine along the urethra and under the pubic rami bilaterally. I then injected 60 cc of 0.5% ropivacaine along the trocar paths in the space of Retzius with a spinal needle from above. I then grasped the vaginal mucosa with an Allis clamp just below the urethra and then again approximately 3 cm along. Made an incision with knife. I then grasped the edges of the vaginal mucosa using Metzenbaum scissors dissected out laterally to each pubic rami. I then inserted a catheter in the bladder with an obturator. I pulled it to its ipsilateral side and placed the left side of the tape. I went under the pubic rami, through the urogenital diaphragm and through the space of Retzius. I then passed the catheter out through the skin. Then inspected the bladder with a 70 degree cystoscope. There is no evidence of tape within the bladder. I then pulled the tape through to the midline. The bladder was then drained and once again the obturator was placed within the urethra and pulled to its ipsilateral side. I then placed the right side of the tape in the same fashion as the left side. Once again the bladder was inspected with a 70 degree cystoscope. There was no evidence of tape within the bladder. I then placed a packing forcep under the tape and removed his outer sheath. Once again I tested for attention by pushing on the bladder from above. There was minimal leakage. The tape was loose. I then cut the tape off at the level of the skin and pulled out the skin. The vaginal mucosa was then closed using interrupted 2-0 Vicryl suture in a mattress fashion. The suprapubic incisions were closed with Dermabond. Sterile dressings were applied. The bladder was then drained. She tolerated procedure well and was taken to the recovery room in excellent condition. All sponge, instrument and needle counts were correct. The estimated blood loss was less than 100 cc. Condition: stable Disposition: PACU Complications:: None
--- NOTE | 2024-07-22 10:44 | P.PNANES_ITS ---
[facility] Anesthesia Record Part II Anesthesia Record Part II Discharge Time: 08:45 Destination: Surgical Day Care (OP Surgery) PACU nurse assessment reviewed?: Yes Patient Condition:: Good Anesthesia Complications:: None Swallowing reflex intact?: Yes Airway Patency: Patent Cyanosis?: No Blood Pressure: 147/64 SaO2: 97 Respiratory Rate: 16 Pulse Rate: 94 Temperature: 97.8 F Mental Status: Alert & Oriented Pain level:: 0 Nausea and/or vomitting:: None Intake, IV Amount: 0 Hydration: Adequate
== END 2024-07-22 09:34 | disposition home or self-care (01) ==
PROVIDERS: PCP Nurse Practitioner; Visit Provider Nurse Practitioner Obstetrics & Gynecology
PROC: (CPT 57288; principal; 2024-07-22 07:30)
DX: N36.42 Intrinsic sphincter deficiency (ISD) (principal); N39.3 Stress incontinence (female) (male)
CPT/HCPCS: 57288; 82962; 96374; C1771; J1100; J1885; J1956; J2405; J2550; J3010; J7030

== ENCOUNTER 2024-08-02 21:46 | Emergency (ER) | payer MEDICARE, MEDICAID, SELFPAY ==
[2024-08-02 21:55] VITALS: BP 165/77; PULSE 98; RESP 20; TEMP 37.1; O2SAT 97; BMI 26.1
--- NOTE | 2024-08-02 21:57 | PC.NURSE ---
Pt awake alert and oriented x3 Skin pink warm and dry Resp full and easy Speech clear and appropriate. Accucheck 203
--- NOTE | 2024-08-02 22:43 | PC.NURSE ---
Accu check 62 MD aware. Pt given food. Awake alert and oriented x3
[2024-08-02 22:47] LABS: Basophils # 0.1 K/mm3 (0-0.2); Basophils % 0.8 % (0.1-2.0); Eosinophils # 0.2 K/mm3 (0.0-0.4); Eosinophils % 2.2 % (0.1-12.0); Hematocrit 35.2 % (37.0-47.0); Hemoglobin 12.1 g/dL (12.2-16.2); Lymphocytes # 1.9 K/mm3 (0.7-4.5); Lymphocytes % 21.4 % (10-50); Mean Corpuscular HGB Conc 34.4 g/dL (31.8-35.4); Mean Corpuscular Hemoglobin 30.9 pg (27.0-31.2); Mean Platelet Volume 9.9 fl (7.4-10.4); Monocytes # 0.5 K/mm3 (0.1-1.0); Monocytes % 5.7 % (1.7-9.3); Neutrophils # 6.3 K/mm3 (1.8-7.8); Neutrophils % 69.2 % (37.0-80.0); Platelet Count 301 K/mm3 (142-424); Red Blood Count 3.91 M/mm3 (4.20-5.40); Red Cell Distribution Width 12.6 % (11.5-17.5); White Blood Count 9.1 K/mm3 (4.8-10.8)
[2024-08-02 22:51] LABS: Chloride 100 mmol/L (98-107)
[2024-08-02 22:52] LABS: Albumin Level 4.2 g/dl (3.5-5.0); Potassium 3.9 mmoL/L (3.5-5.1); Sodium 132 mmol/L (136-145)
[2024-08-02 22:54] LABS: Blood Urea Nitrogen 17 mg/dl (7-17); Creatinine Clearance Estimated 66 mL/min (50-200); Estimated Glomerular Filt Rate 64 ml/min (>60); GFR (African American) 77 ML/MIN (>60)
[2024-08-02 22:55] LABS: Alanine Aminotransferase 19 U/L (12-78); Albumin/Globulin Ratio 1.5 (1.1-1.8); Alkaline Phosphatase 130 U/L (38-126); Anion Gap 10.9 mEq/L (5-15); Aspartate Amino Transferase 29 U/L (14-36); Bilirubin,Total 0.3 mg/dl (0.2-1.3); Carbon Dioxide 25 mmol/L (22.0-30.0); Globulin 2.8 g/dL (1.3-3.2); Glucose 58 mg/dl (74-100)
--- NOTE | 2024-08-02 23:08 | PC.NURSE ---
Accucheck 79
--- NOTE | 2024-08-02 23:12 | HMH.EDGENADL ---
Discharge Plan Disposition Patient Disposition: Left Against Medical Advice Prescriptions Prescriptions: No Action ammonium lactate 12 % cream 1 applic topical BID Qty: 385 1RF promethazine 25 mg tablet 25 mg PO HS Qty: 7 0RF fluticasone propionate [Flonase Allergy Relief] 50 mcg/actuation spray,suspension 1 spray intranasal DAILY PRN (Reason: allergies) Qty: 16 0RF Rx Instructions: administer into each nostril estradiol 0.01 % (0.1 mg/gram) cream See Rx Instructions vaginal .COMPLEX Qty: 42.5 2RF Rx Instructions: Using finger technique daily for two weeks and then twice weekly vaginally; quetiapine 300 mg tablet 300 mg PO HS hydrocodone-acetaminophen 10-325 mg tablet 1 tab PO TID PRN (Reason: Pain) Patient Comments: TAKE 1 TABLET BY MOUTH EVERY 6 HOURS FOR 7 DAYS mirtazapine 30 mg tablet 30 mg PO DAILY Patient Comments: TAKE 1 TABLET BY MOUTH AT BEDTIME ONCE DAILY Citrucel 500 mg tablet 0 g PO DAILY Patient Comments: TAKE 2 TABLETS BY MOUTH ONCE DAILY Gvoke HypoPen 1-Pack 1 mg/0.2 mL auto-injector 0 mg SQ DAILY PRN (Reason: .) Patient Comments: INJECT FULL CONTENT IN CASE OF SEVERE HYPOGLYCEMIA ONLY IF UNCONSCIOUS valsartan 80 mg tablet See Rx Instructions .ROUTE .COMPLEX Qty: 90 3RF Dose Instruction: Take 1 tablet by mouth once daily Rx Instructions: Take 1 tablet by mouth once daily Repatha Syringe 140 mg/mL syringe 140 mg SQ Q2W Qty: 3 2RF alendronate 70 mg tablet 70 mg PO WEEKLY Patient Comments: TAKE 1 TABLET BY MOUTH EVERY 7 DAYS, TAKE IN THE MORNING WITH A FULL GLASS OF WATER, ON AN EMPTY STOMACH, AND DONOT TAKE ANYTHING ELSE BY MOUTH OR LIE DOWN FOR THE NEXT 30 MINUTES levothyroxine 75 mcg tablet 75 mcg PO DAILY famotidine 20 mg tablet 20 mg PO BID primidone 250 mg tablet 250 mg PO HS Patient Comments: TAKE 1 TABLET BY MOUTH ONCE DAILY AT NIGHT insulin aspart U-100 [Novolog FlexPen U-100 Insulin] 100 unit/mL (3 mL) insulin pen See Rx Instructions .ROUTE .COMPLEX Rx Instructions: SLIDING SCALE DOSE temazepam 22.5 mg capsule 22.5 mg PO HS Patient Comments: TAKE 1 CAPSULE BY MOUTH AT BEDTIME hydroxyzine HCl 25 mg tablet 125 mg PO BID Rx Instructions: two in the AM and three in the PM insulin glargine [Lantus Solostar U-100 Insulin] 100 unit/mL (3 mL) insulin pen 10 unit SQ BID Linzess 290 mcg capsule 290 mcg PO DAILY Patient Comments: TAKE 1 CAPSULE BY MOUTH ONCE DAILY BEFORE MEAL(S) FOR CONSTIPATION furosemide [Lasix] 40 mg tablet 40 mg PO WEEKLY Rx Instructions: twice a week aspirin 81 mg Tablet 81 mg PO DAILY oxycodone-acetaminophen 5-325 mg tablet 1 tab PO Q6H PRN (Reason: pain) Qty: 14 0RF cyclobenzaprine 10 mg tablet 10 mg PO TID PRN (Reason: muscle spasm) 5 Days Qty: 15 0RF ibuprofen 600 mg tablet 600 mg PO Q8H PRN (Reason: pain) 7 Days Qty: 21 0RF Referrals Follow up/Referrals: Gwen Ruiz APRN [Primary Care Provider] - See instructions Activity Restrictions/Add. Instructions Additional Instructions/Restrictions: Please take your medications only as prescribed. Monitor your blood sugar closely at home for the next few hours as it is still possible for your blood sugar to bottom out since you are leaving before the normal full metabolism of that medication. Please immediately return to the ER with new, worsening, or otherwise concerning symptoms peer Clinical Impressions Clinical Impression: Accidental overdose of insulin, Hypoglycemia Instructions Patient Instructions: DI for Hyperglycemia -- Adult Print Language Print Language: Occitan Discharge ED Provider: Damian Hilario General Adult HPI <Damian Hilario MD - Last Filed: 08/02/24 23:30> General Chief complaint: Hyper/Hypoglycemia Stated complaint: took too diabetic meds Time Seen by Provider: 08/02/24 21:57 Mode of Arrival: Ambulatory Source of Information: Patient Limitations: No Limitations Description of Symptoms (Recalled from ER Triage Doc. by RN): Pt states she accidentaly took 9 units of Regular insulin too much. History of Present Illness HPI narrative: Please note that above description of symptoms, in this electronic medical record under categorization of recalled from ER triage doctor by RN are reflective of an initial nursing assessment, however, is not reflective of my full history and physical exam that was personally taken and clarified. Consequentially, this preceding description of symptoms, which may include the patient's categorized chief complaint in the EMR, do not reflect my personal clinical impression, and the ultimate description of history of present illness and patient stated complaints should be deferred to this section of the note. Unless stated otherwise or congruent with this section of the note, additional signs, symptoms, or incongruence should be interpreted as inaccurate with my clinical impression. Related Data Home Medications ?Medication ?Instructions ?Recorded ?Confirmed alendronate 70 mg tablet 70 mg PO WEEKLY 02/23/24 07/22/24 famotidine 20 mg tablet 20 mg PO BID 02/23/24 07/22/24 insulin aspart U-100 100 unit/mL See Rx Instructions .Route .COMPLEX 02/23/24 07/22/24 (3 mL) subcutaneous pen (Novolog FlexPen U-100 Insulin aspart) levothyroxine 75 mcg tablet 75 mcg PO DAILY 02/23/24 07/22/24 primidone 250 mg tablet 250 mg PO HS 02/23/24 07/22/24 temazepam 22.5 mg capsule 22.5 mg PO HS 02/23/24 07/22/24 linaclotide 290 mcg capsule 290 mcg PO DAILY 04/03/24 07/22/24 (Linzess) hydroxyzine HCl 25 mg tablet 125 mg PO BID 05/26/24 07/22/24 glucagon 1 mg/0.2 mL subcutaneous 0 mg SQ DAILY PRN . 06/30/24 07/22/24 auto-injector (Gvoke HypoPen 1-Pack) hydrocodone 10 mg-acetaminophen 1 tab PO TID PRN Pain 06/30/24 07/22/24 325 mg tablet insulin glargine 100 unit/mL (3 10 unit SQ BID 06/30/24 07/22/24 mL) subcutaneous pen (Lantus Solostar U-100 Insulin) methylcellulose (laxative) 500 mg 0 g PO DAILY 06/30/24 07/22/24 tablet (Citrucel) mirtazapine 30 mg tablet 30 mg PO DAILY 06/30/24 07/22/24 quetiapine 300 mg tablet 300 mg PO HS 06/30/24 07/22/24 aspirin 81 mg tablet 81 mg PO DAILY 07/22/24 07/22/24 furosemide 40 mg tablet (Lasix) 40 mg PO WEEKLY 07/22/24 07/22/24 Previous Rx's ?Medication ?Instructions ?Recorded estradiol 0.01% (0.1 mg/gram) See Rx Instructions vaginal 05/19/24 vaginal cream .COMPLEX #42.5 grams fluticasone propionate 50 1 spray intranasal DAILY PRN 05/29/24 mcg/actuation nasal allergies #16 grams spray,suspension (Flonase Allergy Relief) promethazine 25 mg tablet 25 mg PO HS #7 tabs 05/29/24 valsartan 80 mg tablet See Rx Instructions .Route 06/11/24 .COMPLEX #90 tabs cyclobenzaprine 10 mg tablet 10 mg PO TID PRN muscle spasm 5 06/29/24 days #15 tabs ibuprofen 600 mg tablet 600 mg PO Q8H PRN pain 7 days #21 06/29/24 tabs ammonium lactate 12 % topical cream 1 applic topical BID dry skin, 07/07/24 callus care #385 grams oxycodone-acetaminophen 5 mg-325 1 tab PO Q6H PRN pain #14 tabs 07/22/24 mg tablet evolocumab 140 mg/mL subcutaneous 140 mg SQ Q2W #3 mL 07/31/24 syringe (Repatha Syringe) Allergies Allergy/AdvReac Type Severity Reaction Status Date / Time Penicillins Allergy Severe itching,ciro Verified 07/02/24 13:53 h clindamycin Allergy Other Verified 07/02/24 13:53 [id number] Reductase Allergy itching Verified 07/22/24 06:25 Inhibitor atorvastatin (From Lipitor) AdvReac Intermediate liver Verified 07/02/24 13:53 injury [facility] <Damian Hilario MD - Last Filed: 08/02/24 23:30> [facility] Disclaimer: The information contained in this section may have been updated after the patient was seen, as this information can be updated by other users. Medical History (Updated 08/02/24 @ 23:30 by Damian Hilario MD) Pulsatile tinnitus, bilateral Atypical angina Encounter for screening for malignant neoplasm of lung Dyspnea on exertion Smoking greater than 30 pack years Insomnia Mood disorder Diastolic dysfunction Hyperlipidemia Hypertension Diabetes mellitus Tobacco dependence syndrome CAD (coronary atherosclerotic disease) Cellulitis Insulin pump in place Thyroid disease Diabetes Surgical History Hx of LASIK History of surgery on lower extremity History of carpal tunnel release of both wrists History of tonsillectomy and adenoidectomy H/O cardiac catheterization History of surgery on lower extremity H/O section H/O knee surgery Stented coronary artery Family History Other Cancer Diabetes FHx: mental illness No significant family history Stroke Social History (Updated 07/22/24 @ 06:35 by Tsering Rosales RN) Smoking Status: Current every day smoker tobacco type: cigarettes packs per day: 1 quit status: considering quitting alcohol intake: never substance use type: denies use current occupational status: disabled Travel in the last 8 weeks: Inside the [place] household members: significant other housing: apartment lives independently: Yes marital status: life partner number of children: 1 Have you lived/traveled outside [place] in past 30 days?: No Contact w/someone who lives/traveled outside [place] past 30 days?: No Exposure to someone with infectious disease in past 14 days?: No Do you have a fever (greater than 100.4 F or 38 C)?: No Have you tested positive for COVID-19: No Exposed to someone with COVID-19 in past 14 days?: No Do you have a sore throat?: No Do you have a cough?: No Do you have any weakness?: No Do you have any diarrhea?: No Are you experiencing any unusual bleeding?: No Do you have any muscle aches/pain?: No Do you have any abdominal pain?: No Are you experiencing loss of taste or smell?: No Other Medical History Have you received the Flu Vaccine for this season: No Have you received the Pneumonia Vaccine: No <Damian Hilario MD - Last Filed: 08/02/24 23:30> ROS Obtained: Yes All systems reviewed & no additional complaints except as documented Physical Exam <Damian Hilario MD - Last Filed: 08/02/24 23:30> General General appearance: alert Head Head exam: atraumatic and normocephalic Eye Eye exam: Present normal appearance, PERRL and EOMI Neck Neck exam: Present normal inspection, full ROM and trachea midline Respiratory Respiratory exam: Absent respiratory distress, wheezes, stridor, accessory muscle use or prolonged expiratory phase Cardiovascular Cardiovascular exam: Present other (Pulses equal symmetric in upper and lower extremities) Abdominal Exam Abdominal exam: Present soft; Absent distention, tenderness or pulsatile mass Extremities Exam Extremities exam: Absent edema Neurological Exam Neurological exam: Present alert, oriented X3 and CN II-XII intact; Absent motor sensory deficit Skin Skin exam: Present warm and dry; Absent diaphoresis or erythema Medical Decision Making <Damian Hilario MD - Last Filed: 08/02/24 23:30> Medical Records Medical records reviewed: Yes I reviewed the patient's medical records. Screening: Per USPSTF and CDC recommendations, given the prevalence of disease in our region, it is our hospital?s policy to screen for HIV and viral Hepatitis for all patients aged 18 and over and those with ongoing risk factors. Gamaliel Inquiry Pt receiving controlled substance: No Gamaliel was queried for this patient: No Vital Signs: 08/02/24 21:55 08/02/24 23:44 Temperature 98.8 F 98.2 F Temperature Source Oral Oral Pulse Rate 88 Pulse Rate [Right Brachial] 98 H Respiratory Rate 20 16 Blood Pressure 140/70 Blood Pressure [Right Arm] 165/77 H Blood Pressure Mean [Right Arm] 106 Blood Pressure Source Automatic Cuff Blood Pressure Source [Right Arm] Automatic Cuff Blood Pressure Position Sitting 02 Sat by Pulse Oximetry 97 Oxygen Delivery Method Room Air Room Air Lab Data Lab Results 08/02/24 22:40: WBC 9.1, RBC 3.91 L, Hgb 12.1 L, Hct 35.2 L, MCV 90.0, MCH 30.9, MCHC 34.4, RDW 12.6, Plt Count 301, MPV 9.9, Neut % (Auto) 69.2, Lymph % (Auto) 21.4, [place] % (Auto) 5.7, Eos % (Auto) 2.2, Baso % (Auto) 0.8, Neut # (Auto) 6.3, Lymph # (Auto) 1.9, [place] # (Auto) 0.5, Eos # (Auto) 0.2, Baso # (Auto) 0.1, Sodium 132 L, Potassium 3.9, Chloride 100, Carbon Dioxide 25, Anion Gap 10.9, BUN 17, Creatinine 0.90, Estimated Creat Clear 66, Estimated GFR 64, Est GFR ( Amer) 77, Glucose 58 L, Calcium 10.0, Total Bilirubin 0.3, AST 29, ALT 19, Alkaline Phosphatase 130 H, Total Protein 7.0, Albumin 4.2, Globulin 2.8, Albumin/Globulin Ratio 1.5, HIV Ag/Ab Combo Qual Negative 08/02/24 22:40 08/02/24 22:40 Orders (Tests/Meds): ORDERS Category Date Time Status Complete Blood Count Auto Diff Stat Lab 08/02/24 22:40 Completed Comprehensive Metabolic Panel Stat Lab 08/02/24 22:40 Completed HIV Combo Routine Lab 08/02/24 22:40 Completed Medical Decision Narrative: 59-year-old female history of diabetes presenting with accidental insulin overdose. Patient states that she was taking her long-acting insulin prior to arrival around 9:30 PM on 08/02, excellently took 9 extra units of short acting in addition. Called her diabetic clinic, they stated that she should come to the emergency department for evaluation and monitoring. Patient not having any symptoms. History obtained with patient. On my evaluation, very well-appearing, speaking in full sentences and neurologically intact. Initial glucose in the 200s. Patient had just eaten prior to arrival. States that she had high sugar meal. Patient was placed in observation beginning at 10 PM PM in order to continuous glucose checks and monitor for hypoglycemia and determine need for admission versus home-going. The patient was provided glucose monitoring and interventions as needed for hypoglycemia while awaiting results. Independent interpretation of results demonstrated glucose in the 60s on recheck. Patient's CBC and CMP nonactionable. Prior to final evaluation and disposition, care handed off to oncoming physician. Director Clinical Pharmacology disclaimer Much of this encounter note is an electronic cloth spreader screen printing spoken language to printed text. Electronic cloth spreader screen printing of the spoken language may permit errors. Although I have reviewed the note, some errors may still exist. <Sukhjinder Gary MD - Last Filed: 08/03/24 01:04> Vital Signs: 08/02/24 21:55 08/02/24 23:44 Temperature 98.8 F 98.2 F Temperature Source Oral Oral Pulse Rate 88 Pulse Rate [Right Brachial] 98 H Respiratory Rate 20 16 Blood Pressure 140/70 Blood Pressure [Right Arm] 165/77 H Blood Pressure Mean [Right Arm] 106 Blood Pressure Source Automatic Cuff Blood Pressure Source [Right Arm] Automatic Cuff Blood Pressure Position Sitting 02 Sat by Pulse Oximetry 97 Oxygen Delivery Method Room Air Room Air Lab Data Lab Results 08/02/24 22:40: WBC 9.1, RBC 3.91 L, Hgb 12.1 L, Hct 35.2 L, MCV 90.0, MCH 30.9, MCHC 34.4, RDW 12.6, Plt Count 301, MPV 9.9, Neut % (Auto) 69.2, Lymph % (Auto) 21.4, [place] % (Auto) 5.7, Eos % (Auto) 2.2, Baso % (Auto) 0.8, Neut # (Auto) 6.3, Lymph # (Auto) 1.9, [place] # (Auto) 0.5, Eos # (Auto) 0.2, Baso # (Auto) 0.1, Sodium 132 L, Potassium 3.9, Chloride 100, Carbon Dioxide 25, Anion Gap 10.9, BUN 17, Creatinine 0.90, Estimated Creat Clear 66, Estimated GFR 64, Est GFR ( Amer) 77, Glucose 58 L, Calcium 10.0, Total Bilirubin 0.3, AST 29, ALT 19, Alkaline Phosphatase 130 H, Total Protein 7.0, Albumin 4.2, Globulin 2.8, Albumin/Globulin Ratio 1.5, HIV Ag/Ab Combo Qual Negative Orders (Tests/Meds): ORDERS Category Date Time Status Complete Blood Count Auto Diff Stat Lab 08/02/24 22:40 Completed Comprehensive Metabolic Panel Stat Lab 08/02/24 22:40 Completed HIV Combo Routine Lab 08/02/24 22:40 Completed Medical Decision Narrative: 59-year-old female history of diabetes presenting with accidental insulin overdose. Patient states that she was taking her long-acting insulin prior to arrival around 9:30 PM on 08/02, excellently took 9 extra units of short acting in addition. Called her diabetic clinic, they stated that she should come to the emergency department for evaluation and monitoring. Patient not having any symptoms. History obtained with patient. On my evaluation, very well-appearing, speaking in full sentences and neurologically intact. Initial glucose in the 200s. Patient had just eaten prior to arrival. States that she had high sugar meal. Patient was placed in observation beginning at 10 PM PM in order to continuous glucose checks and monitor for hypoglycemia and determine need for admission versus home-going. The patient was provided glucose monitoring and interventions as needed for hypoglycemia while awaiting results. Independent interpretation of results demonstrated glucose in the 60s on recheck. Patient's CBC and CMP nonactionable. Prior to final evaluation and disposition, care handed off to oncoming physician. Director Clinical Pharmacology disclaimer Much of this encounter note is an electronic cloth spreader screen printing spoken language to printed text. Electronic cloth spreader screen printing of the spoken language may permit errors. Although I have reviewed the note, some errors may still exist. Gary: Upon my assumption of care I assessed the patient and her blood glucose is improving, now in the 90s. She is tolerating oral intake and feels well. I plan to observe this patient until around 1 AM which should be close to the end of the window duration of her insulin. Will continue to monitor her symptoms and vitals as well as frequently reassess blood glucose. Shortly after this, patient reported she wanted to leave. She states she feels fine and since her blood sugar is going up she wants to go home. I expressed to her my concern with this that she could still have rebound hypoglycemia and explained the consequences of this. She states she took her insulin around 8:20pm even though she had reported to Dr. Hilario it was closer to 9 PM. She says she thinks her insulin should be done working in her body at this point and there is nothing to worry about. I explained to her that this was not the case based on the metabolic window of activity of the NovoLog that she took, however she insists on leaving. Patient was able to explain back to me their condition and the risks of leaving up to and including wosening of condition, severe life altering disability, or . Patient was able to provide reason for their decision and clearly express their decision. Patient has capacity to make this decision and left AGAINST MEDICAL ADVICE. She left the department in stable condition with euglycemic blood glucose. Total time in ED observation: 1 hour 45 minutes Critical Care <Damian Hilario MD - Last Filed: 08/02/24 23:30> Critical Care Time Critical Care Time: Yes (endocrinologic) Attestation: On 08/02/24, the high probability of a clinically significant, sudden or life threatening deterioration of the following system(s) required my full and direct attention, intervention and personal management. The time I documented below is in addition to time spent performing reported procedures but includes the following listed in this critical care notation. Total Time Total Critical Care Time: 35
--- NOTE | 2024-08-02 23:36 | PC.NURSE ---
Accucheck 92
[2024-08-02 23:44] VITALS: BP 140/70; PULSE 88; RESP 16; TEMP 36.8; O2SAT 98
[2024-08-02 23:48] LABS: HIV Combo NEGATIVE (Negative)
== END 2024-08-02 23:48 | disposition left against medical advice (07) ==
PROVIDERS: Emergency Provider Emergency Medicine; PCP Nurse Practitioner
DX: E16.2 Hypoglycemia, unspecified (principal); T38.3X1A Poisoning by insulin and oral hypoglycemic [antidiabetic] drugs, accidental (unintentional), initial encounter
CPT/HCPCS: 80053; 85025; 87389; 99283

== ENCOUNTER 2024-08-26 15:02 | Outpatient (CLI) | payer MEDICARE, MEDICAID, SELFPAY ==
[2024-08-26 15:52] LABS: Albumin Level 3.8 g/dl (3.5-5.0); Anion Gap 11.8 mEq/L (5-15); Blood Urea Nitrogen 22 mg/dl (7-17); Carbon Dioxide 30 mmol/L (22.0-30.0); Chloride 90 mmol/L (98-107); Estimated Glomerular Filt Rate 56 ml/min (>60); GFR (African American) 68 ML/MIN (>60); Glucose 284 mg/dl (74-100); Potassium 4.8 mmoL/L (3.5-5.1); Sodium 127 mmol/L (136-145)
[2024-08-26 16:07] LABS: 25-OH Vitamin D, Total 70.5 ng/mL (30-100)
[2024-08-28 21:10] LABS: C-Telopeptide Serum 158 pg/mL (.)
[2024-08-29 10:10] LABS: Tandem-R Ostase 17.6 ug/L (.)
[2024-08-30 06:14] LABS: Serial Monitoring PDF SCANNED IMAGE
== END 2024-08-26 23:59 | disposition home or self-care (01) ==
LOC: LAB 15:03
PROVIDERS: Physician Assistant; PCP Nurse Practitioner; Visit Provider Physician Assistant
DX: M80.00XA Age-related osteoporosis with current pathological fracture, unspecified site, initial encounter for fracture (principal)
CPT/HCPCS: 36415; 80069; 82306; 82523; 84080

== ENCOUNTER 2024-09-01 08:49 | Outpatient (CLI) | payer MEDICARE, MEDICAID, SELFPAY ==
--- NOTE | 2024-09-01 08:51 | XR_ITS ---
FINAL REPORT TECHNIQUE: Bone densitometry calculations of the lumbar spine and left hip were obtained. CLINICAL HISTORY: SCREENING COMPARISON: 08/17/2022 FINDINGS: Using L1-4, the bone mineral density of the spine is 0.951 g/cm2, corresponding to T-score of -0.9. Using the left hip, the bone mineral density of the femoral neck is 0.562 g/cm2, corresponding to a T-score of -3.1. NOTE: T-score: Standard deviation compared with peak bone mass of young adult mean. *Following the recommendations of the International Society of Bone densitometry, classification of hip BMD is based on the lower of two T-scores; total hip or femoral neck. IMPRESSION: Diminished bone mineral density of the left hip consistent with osteopenia. Normal bone mineral density of the lumbar spine. Reviewed, Interpreted and Dictated by Codey Rodrigez MD Transcribed by Gaviota Shaw Authenticated and [facility]
== END 2024-09-01 23:59 | disposition home or self-care (01) ==
LOC: RAD 08:49
PROVIDERS: PCP Nurse Practitioner; Visit Provider Physician Assistant
DX: M81.0 Age-related osteoporosis without current pathological fracture (principal)
CPT/HCPCS: 77080